=== PATIENT | male | born 1930 | race Caucasian/White ===

== ENCOUNTER 2016-10-16 01:59 | Inpatient (IN) | payer MEDICARE, BC, OTHER ==
[2016-10-16] MEDS ORDERED: Sodium Chloride 0.9% 10 ML Syringe FLUSH PRN (02:21)
[2016-10-16] MEDS ORDERED: HYDROmorphone 0.5 MG/0.5 ML Syringe IVPUSH ONE (02:22)
--- NOTE | 2016-10-16 02:33 | EDM.PDOC ---
ED HISTORY OF PRESENT ILLNESS - General Chief Complaint: Chest Pain Stated Complaint: CHEST PAIN BODY ACHES Time Seen by Provider: 10/16/16 02:16 Source of Information: Reports: Patient, Family History Limitations: Reports: No limitations - History of Present Illness INITIAL COMMENTS - FREE TEXT/NARRATIVE: The patient presents with generalized pain. He has chest pain also and back pain. The back pain is hurting him the worse. This all started this morning and it has progressed. He has no fever, chills, cough, congestion or runny nose. He has no shortness of breath. He has no nausea, vomiting or abdominal pain. He has some swelling in his legs. Timing/Duration: Reports: Day(s): (Yesterday) Severity: moderate Location, General: Reports: chest, back, generalized Quality: Reports: Ache Improves with: Reports: None Worsens with: Reports: None Associated Symptoms (General): Reports: chest pain. Denies: cough, fever/chills , nausea/vomiting, shortness of breath - Related Data Allergies/ADRs: Allergies Allergy/AdvReac Type Severity Reaction Status Date / Time cephalexin [Cephalexin] Allergy Unknown Unknown Verified 10/16/16 02:11 Home Meds: Home Meds Aspirin [Anshul Chewable Aspirin] 81 mg PO DAILY 01/27/14 [History] Carvedilol [Coreg] 6.25 mg PO BID 01/27/14 [History] Isosorbide Mononitrate [Imdur] 30 mg PO ACBREAKFAST 01/27/14 [History] Acetaminophen [Pain & Fever] 1 - 2 tab PO Q4H PRN 08/11/14 [History] Bumetanide 2 mg PO DAILY 04/16/15 [History] Hydrocodone/Acetaminophen [Hydrocodon-Acetaminophn 10-325] 10 - 325 mg PO Q6H PRN 04/16/15 [History] Polyethylene Glycol 3350 [MiraLAX] 17 gm PO ASDIRECTED PRN 07/06/15 [History] Nitroglycerin [Nitrostat] 0.4 mg SL Q5M PRN #25 tab.sl 07/09/16 [Rx] Past Medical History HEENT History: Reports: Cataract, Hard of hearing, Impaired vision Other HEENT History: Wears glasses Cardiovascular History: Reports: CAD, Heart Failure, High cholesterol, Hypertension, [place], Pacemaker, SOB on exertion Respiratory History: Reports: SOB Gastrointestinal History: Reports: GI bleed Genitourinary History: Reports: Retention, urinary Musculoskeletal History: Reports: Back pain, chronic Neurological History: Reports: Headaches, chronic Psychiatric History: Reports: None Endocrine/Metabolic History: Reports: None Hematologic History: Reports: Anemia, Blood transfusion(s) Immunologic History: Reports: None Oncologic (Cancer) History: Reports: None Dermatologic History: Reports: None - Infectious Disease History Infectious Disease History: Reports: Chicken pox, Measles, Mumps, Shingles - Past Surgical History HEENT Surgical History: Reports: Cataract surgery Cardiovascular Surgical History: Reports: Pacer Social & Family History - Family History Family Medical History: Noncontributory - Tobacco Use Smoking Status *Q: Former Smoker Years of Tobacco use: 30 Packs/Tins Daily: 1 Used Tobacco, but Quit: Yes Month Tobacco Last Used: 45 yrs Second Hand Smoke Exposure: No - Caffeine Use Caffeine Use: Reports: Coffee - Alcohol Use Days Per Week of Alcohol Use: 0 Number of Drinks Per Day: 1 Total Drinks Per Week: 0 - Recreational Drug Use Recreational Drug Use: No - Living Situation & Occupation Living situation: Reports: Occupation: retired ED ROS GENERAL - Review of Systems Review Of Systems: See Below Constitutional: Reports: no symptoms HEENT: Reports: No symptoms Respiratory: Reports: No Symptoms Cardiovascular: Reports: Chest pain Endocrine: Reports: no symptoms GI/Abdominal: Reports: No symptoms : Reports: no symptoms Musculoskeletal: Reports: back pain, muscle stiffness ED EXAM, GENERAL - Physical Exam Exam: See Below Exam Limited By: Other General Appearance: no apparent distress Ears: normal external exam Nose: normal inspection Head: atraumatic, normocephalic Neck: normal inspection Respiratory/Chest: no respiratory distress, lungs clear, normal breath sounds Cardiovascular: regular rate, rhythm, no murmur, other (Edema in his legs) GI/Abdominal: soft, non tender, no organomegaly Back Exam: normal inspection Extremities: pedal edema Neurological: alert, oriented, no motor/sensory deficits EKG INTERPRETATION EKG Date: 10/16/16 Time: 02:07 Rhythm: other (ventricular paced rhythm) Course - Vital Signs Last Recorded V/S: Last Vital Signs Temp 96.6 F 10/16/16 02:04 Pulse 87 10/16/16 02:04 Resp 16 10/16/16 02:04 BP 131/94 H 10/16/16 02:04 Pulse Ox 89 L 10/16/16 02:04 - Orders/Labs/Meds Orders: Active Orders 24 hr Category Date Time Status Patient Status [ADT] Routine ADT 10/16/16 05:58 Ordered Cardiac Monitoring [RC] . DIRECTED Care 10/16/16 02:22 Active EKG Documentation Completion [RC] STAT Care 10/16/16 02:22 Active Oxygen Therapy [RC] PRN Care 10/16/16 02:22 Active Peripheral IV Care [RC] . DIRECTED Care 10/16/16 02:22 Active Urinary Catheter Assessment [RC] ASDIRECTED Care 10/16/16 02:42 Active Urinary Catheter Insertion [Insert Urinary Catheter] [ Care 10/16/16 02:45 Ordered OM.PC] Q24H Abdomen Pelvis w Cont [CT] Stat Exams 10/16/16 03:11 Taken Chest 1V Frontal [CR] Stat Exams 10/16/16 02:22 Taken Echo Comp wo Cont [US] Stat Exams 10/16/16 06:00 Ordered CULTURE BLOOD [BC] Stat Lab 10/16/16 05:32 Ordered CULTURE BLOOD [BC] Stat Lab 10/16/16 05:32 Ordered LACTIC ACID [CHEM] Stat Lab 10/16/16 05:57 Ordered Levofloxacin/Dextrose 5%-Water [Levaquin in D5W 750 MG/ Med 10/16/16 05:32 Active 150 ML] 750 mg Premix Bag 1 bag IV ONETIME Piperacillin/Tazobactam [Zosyn] 4.5 gm Med 10/16/16 05:58 Ordered Sodium Chloride 0.9% [Normal Saline] 100 ml IV ONETIME Sodium Chloride 0.9% [Normal Saline] 1,000 ml Med 10/16/16 03:15 Active IV ASDIRECTED Sodium Chloride 0.9% [Normal Saline] 100 ml Med 10/16/16 04:15 Active IV ASDIRECTED Sodium Chloride 0.9% [Saline Flush] Med 10/16/16 02:21 Active 10 ml FLUSH ASDIRECTED PRN Blood Culture x2 Reflex Set [OM.PC] Stat Oth 10/16/16 05:32 Ordered Peripheral IV Insertion Adult [OM.PC] Stat Oth 10/16/16 02:21 Ordered Medication Orders Sodium Chloride (Normal Saline) 1,000 mls @ 125 mls/hr IV ASDIRECTED JAIRO Last Admin: 10/16/16 03:19 Dose: 125 mls/hr Sodium Chloride (Normal Saline) 100 mls @ 60 mls/hr IV ASDIRECTED JAIRO Last Admin: 10/16/16 04:41 Dose: 60 mls/hr Levofloxacin/Dextrose 750 mg/ (Premix) 150 mls @ 100 mls/hr IV ONETIME ONE Stop: 10/16/16 07:01 Last Admin: 10/16/16 05:41 Dose: 100 mls/hr Piperacillin Sod/Tazobactam (Sod 4.5 gm/ Sodium Chloride) 100 mls @ 200 mls/hr IV ONETIME ONE Stop: 10/16/16 06:27 Sodium Chloride (Saline Flush) 10 ml FLUSH ASDIRECTED PRN PRN Reason: Keep Vein Open Last Admin: 10/16/16 02:29 Dose: 10 ml Labs: Laboratory Tests 10/16/16 10/16/16 10/16/16 Range/Units 02:15 02:15 02:15 WBC 18.93 H (4.23-9.07) K/mm3 RBC 6.01 (4.63-6.08) M/mm3 Hgb 11.6 L (13.7-17.5) gm/L Hct 39.6 L (40.1-51.0) % MCV 65.9 L (79.0-92.2) fl MCH 19.3 L (25.7-32.2) pg MCHC 29.3 L (32.2-35.5) g/dl RDW Std Deviation 46.9 H (35.1-43.9) fL Plt Count 267 (163-337) K/mm3 MPV 10.1 (9.4-12.3) fl Neut % (Auto) 82.7 H (34.0-67.9) % Lymph % (Auto) 7.0 L (21.8-53.1) % [place] % (Auto) 9.8 (5.3-12.2) % Eos % (Auto) 0.1 L (0.8-7.0) Baso % (Auto) 0.2 (0.1-1.2) % Neut # (Auto) 15.66 H (1.78-5.38) K/mm3 Lymph # (Auto) 1.32 (1.32-3.57) K/mm3 [place] # (Auto) 1.86 H (0.30-0.82) K/mm3 Eos # (Auto) 0.02 L (0.04-0.54) K/mm3 Baso # (Auto) 0.03 (0.01-0.08) K/mm3 Manual Slide Review Abnormal smear Sodium 140 (136-145) mEq/L Potassium 4.2 (3.5-5.1) mEq/L Chloride 101 (98-107) mEq/L Carbon Dioxide 27 (21-32) mEq/L Anion Gap 16.2 H (5-15) BUN 34 H (7-18) mg/dL Creatinine 1.5 H (0.7-1.3) mg/dL Est Cr Clr Drug Dosing 30.70 mL/min Estimated GFR (MDRD) 45 (>60) mL/min BUN/Creatinine Ratio 22.7 H (14-18) Glucose 131 H (83-115) mg/dL Calcium 9.4 (8.5-10.1) mg/dL Total Bilirubin 2.5 H (0.2-1.0) mg/dL AST 37 (15-37) U/L ALT 16 (16-63) U/L Alkaline Phosphatase 71 (46-116) U/L Troponin I 0.351 H* (0.00-0.056) ng/mL B-Natriuretic Peptide 1012 H (0-100) pg/mL Total Protein 7.9 (6.4-8.2) g/dl Albumin 3.9 (3.4-5.0) g/dl Globulin 4.0 gm/dL Albumin/Globulin Ratio 1.0 (1-2) Lipase 79 (73-393) U/L Urine Color (Yellow) Urine Appearance (Clear) Urine pH (5.0-8.0) Ur Specific [place] (1.005-1.030) Urine Protein (Negative) Urine Glucose (UA) (Negative) Urine Ketones (Negative) Urine Occult Blood (Negative) Urine Nitrite (Negative) Urine Bilirubin (Negative) Urine Urobilinogen (0.2-1.0) Ur Leukocyte Esterase (Negative) Urine RBC (0-5) /hpf Urine WBC (0-5) /hpf Ur Epithelial Cells (0-5) /hpf Urine Bacteria (FEW) /hpf Hyaline Casts (0-5) /lpf Fine Granular Casts (0-5) /lpf Urine Mucus (FEW) /hpf 10/16/16 Range/Units 02:45 WBC (4.23-9.07) K/mm3 RBC (4.63-6.08) M/mm3 Hgb (13.7-17.5) gm/L Hct (40.1-51.0) % MCV (79.0-92.2) fl MCH (25.7-32.2) pg MCHC (32.2-35.5) g/dl RDW Std Deviation (35.1-43.9) fL Plt Count (163-337) K/mm3 MPV (9.4-12.3) fl Neut % (Auto) (34.0-67.9) % Lymph % (Auto) (21.8-53.1) % [place] % (Auto) (5.3-12.2) % Eos % (Auto) (0.8-7.0) Baso % (Auto) (0.1-1.2) % Neut # (Auto) (1.78-5.38) K/mm3 Lymph # (Auto) (1.32-3.57) K/mm3 [place] # (Auto) (0.30-0.82) K/mm3 Eos # (Auto) (0.04-0.54) K/mm3 Baso # (Auto) (0.01-0.08) K/mm3 Manual Slide Review Sodium (136-145) mEq/L Potassium (3.5-5.1) mEq/L Chloride (98-107) mEq/L Carbon Dioxide (21-32) mEq/L Anion Gap (5-15) BUN (7-18) mg/dL Creatinine (0.7-1.3) mg/dL Est Cr Clr Drug Dosing mL/min Estimated GFR (MDRD) (>60) mL/min BUN/Creatinine Ratio (14-18) Glucose (83-115) mg/dL Calcium (8.5-10.1) mg/dL Total Bilirubin (0.2-1.0) mg/dL AST (15-37) U/L ALT (16-63) U/L Alkaline Phosphatase (46-116) U/L Troponin I (0.00-0.056) ng/mL B-Natriuretic Peptide (0-100) pg/mL Total Protein (6.4-8.2) g/dl Albumin (3.4-5.0) g/dl Globulin gm/dL Albumin/Globulin Ratio (1-2) Lipase (73-393) U/L Urine Color Yellow (Yellow) Urine Appearance Clear (Clear) Urine pH 6.0 (5.0-8.0) Ur Specific [place] 1.015 (1.005-1.030) Urine Protein Negative (Negative) Urine Glucose (UA) Negative (Negative) Urine Ketones Negative (Negative) Urine Occult Blood Negative (Negative) Urine Nitrite Negative (Negative) Urine Bilirubin Negative (Negative) Urine Urobilinogen 2.0 H (0.2-1.0) Ur Leukocyte Esterase Negative (Negative) Urine RBC 0-5 (0-5) /hpf Urine WBC 0-5 (0-5) /hpf Ur Epithelial Cells Not seen (0-5) /hpf Urine Bacteria Not seen (FEW) /hpf Hyaline Casts 0-5 (0-5) /lpf Fine Granular Casts 0-5 (0-5) /lpf Urine Mucus Few (FEW) /hpf Meds: Medications Generic Name Dose Route Start Last Admin Trade Name Huseyinq PRN Reason Stop Dose Admin Sodium Chloride 1,000 mls @ 125 mls/hr 10/16/16 03:15 10/16/16 03:19 Normal Saline IV 125 mls/hr ASDIRECTED JAIRO Administration Sodium Chloride 100 mls @ 60 mls/hr 10/16/16 04:15 10/16/16 04:41 Normal Saline IV 60 mls/hr ASDIRECTED JAIRO Administration Levofloxacin/Dextrose 750 mg/ 150 mls @ 100 mls/hr 10/16/16 05:32 10/16/16 05 :41 Premix IV 10/16/16 07:01 100 mls/hr ONETIME ONE Administration Piperacillin Sod/Tazobactam 100 mls @ 200 mls/hr 10/16/16 05:58 Sod 4.5 gm/ Sodium Chloride IV 10/16/16 06:27 ONETIME ONE Sodium Chloride 10 ml 10/16/16 02:21 10/16/16 02:29 Saline Flush FLUSH 10 ml ASDIRECTED PRN Administration Keep Vein Open Discontinued Medications Generic Name Dose Route Start Last Admin Trade Name Roni PRN Reason Stop Dose Admin Diatrizoate Meglum/Diatrizoate Sod 90 ml 10/16/16 04:15 10/16/16 04:38 Gastrografin 37% PO 10/16/16 04:16 90 ml ONETIME ONE Administration Hydromorphone HCl 0.5 mg 10/16/16 02:22 10/16/16 02:29 Dilaudid IVPUSH 10/16/16 02:23 0.5 mg ONETIME ONE Administration Iopamidol 100 ml 10/16/16 04:15 10/16/16 04:39 Isovue-370 (76%) IVPUSH 10/16/16 04:16 100 ml ONETIME ONE Administration Sodium Chloride 10 ml 10/16/16 04:15 10/16/16 04:41 Saline Flush FLUSH 10/16/16 04:16 10 ml ONETIME ONE Administration - Re-Assessments/Exams Free Text/Narrative Re-Assessment/Exam: 10/16/16 02:33 I ordered an IV saline lock, dilaudid 0.5mg IV, EKG, CXR, and labs. His EKG shows a ventricular paced rhythm. 10/16/16 06:03 His WBC was elevated at 18.93. His Hgb was a little low at 11.6. His platelets were normal at 267. His creatinine was elevated at 1.5. His glucose was elevated at 131. His total bili was elevated at 2.5. His troponin was elevated at 0.351. His troponin has been elevated before. His BNP was elevated at 1012. His UA was negative for UTI. 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 Loculated pleural effusion at left base, potential source of elevated WBC. Multiple significant ongoing chronic findings such as the ascities. I called Dr Ferrell and he said they usually do not take the spleen out for this. We try to find the source of the embolic problem. I called Dr Veliz and she agreed to the admission. She wanted zosyn and an echocardiogram. Departure - Departure Time of Disposition: 06:10 Disposition: Admitted As Inpatient 68 Condition: fair Clinical Impression: Splenic infarct, Loculated pleural effusion, Elevated troponin, Chest pain, Renal insufficiency Leukocytosis Qualifiers: Leukocytosis type: unspecified Qualified Code(s): D72.829 - Elevated white blood cell count, unspecified Back pain Qualifiers: Back pain location: low back pain Chronicity: acute Back pain laterality: right Sciatica presence: without sciatica Qualified Code(s): M54.5 - Low back pain CHF (congestive heart failure) Qualifiers: Congestive heart failure type: unspecified congestive heart failure type Congestive heart failure chronicity: chronic Qualified Code(s): I50.9 - Heart failure, unspecified Forms: ED Department Discharge - My Orders Last 24 Hours: My Active Orders 10/16/16 02:21 Sodium Chloride 0.9% [Saline Flush] 10 ml FLUSH ASDIRECTED PRN Peripheral IV Insertion Adult [OM.PC] Stat 10/16/16 02:22 Cardiac Monitoring [RC] . DIRECTED EKG Documentation Completion [RC] STAT Oxygen Therapy [RC] PRN Peripheral IV Care [RC] . DIRECTED Chest 1V Frontal [CR] Stat 10/16/16 02:42 Urinary Catheter Assessment [RC] ASDIRECTED 10/16/16 02:45 Urinary Catheter Insertion [Insert Urinary Catheter] [OM.PC] Q24H 10/16/16 03:11 Abdomen Pelvis w Cont [CT] Stat 10/16/16 03:15 Sodium Chloride 0.9% [Normal Saline] 1,000 ml IV ASDIRECTED 10/16/16 04:15 Sodium Chloride 0.9% [Normal Saline] 100 ml IV ASDIRECTED 10/16/16 05:32 CULTURE BLOOD [BC] Stat CULTURE BLOOD [BC] Stat Levofloxacin/Dextrose 5%-Water [Levaquin in D5W 750 MG/150 ML] 750 mg Premix Bag 1 bag IV ONETIME Blood Culture x2 Reflex Set [OM.PC] Stat 10/16/16 05:57 LACTIC ACID [CHEM] Stat 10/16/16 05:58 Patient Status [ADT] Routine Piperacillin/Tazobactam [Zosyn] 4.5 gm Sodium Chloride 0.9% [Normal Saline] 100 ml IV ONETIME 10/16/16 06:00 Echo Comp wo Cont [US] Stat - Assessment/Plan Last 24 Hours: My Active Orders 10/16/16 02:21 Sodium Chloride 0.9% [Saline Flush] 10 ml FLUSH ASDIRECTED PRN Peripheral IV Insertion Adult [OM.PC] Stat 10/16/16 02:22 Cardiac Monitoring [RC] . DIRECTED EKG Documentation Completion [RC] STAT Oxygen Therapy [RC] PRN Peripheral IV Care [RC] . DIRECTED Chest 1V Frontal [CR] Stat 10/16/16 02:42 Urinary Catheter Assessment [RC] ASDIRECTED 10/16/16 02:45 Urinary Catheter Insertion [Insert Urinary Catheter] [OM.PC] Q24H 10/16/16 03:11 Abdomen Pelvis w Cont [CT] Stat 10/16/16 03:15 Sodium Chloride 0.9% [Normal Saline] 1,000 ml IV ASDIRECTED 10/16/16 04:15 Sodium Chloride 0.9% [Normal Saline] 100 ml IV ASDIRECTED 10/16/16 05:32 CULTURE BLOOD [BC] Stat CULTURE BLOOD [BC] Stat Levofloxacin/Dextrose 5%-Water [Levaquin in D5W 750 MG/150 ML] 750 mg Premix Bag 1 bag IV ONETIME Blood Culture x2 Reflex Set [OM.PC] Stat 10/16/16 05:57 LACTIC ACID [CHEM] Stat 10/16/16 05:58 Patient Status [ADT] Routine Piperacillin/Tazobactam [Zosyn] 4.5 gm Sodium Chloride 0.9% [Normal Saline] 100 ml IV ONETIME 10/16/16 06:00 Echo Comp wo Cont [US] Stat
[2016-10-16] MEDS ORDERED: Sodium Chloride 0.9% 1,000 ML IV SCH (03:15)
[2016-10-16] MEDS ORDERED: Diatrizoate Meglumine/Diatrizoate Sodium 37% 120 ML Bottle PO ONE (04:15)
[2016-10-16] MEDS ORDERED: Iopamidol 755 Mg/ML 100 ML Bottle IVPUSH ONE (04:15)
[2016-10-16] MEDS ORDERED: Sodium Chloride 0.9% 10 ML Syringe FLUSH ONE (04:15)
[2016-10-16] MEDS ORDERED: Sodium Chloride 0.9% 100 ML IV SCH (04:15)
[2016-10-16] MEDS ORDERED: Levofloxacin/Dextrose 5%-Water 750 MG in Premix Bag 1 BAG IV ONE (05:32)
[2016-10-16] MEDS ORDERED: Piperacillin/Tazobactam 4.5 GM in Sodium Chloride 0.9% 100 ML IV ONE ×2 (05:58→11:00)
[2016-10-16] MEDS: Morphine 2 MG/ML Syringe IVPUSH PRN (07:45)
[2016-10-16] MEDS ORDERED: Morphine 2 MG/ML Syringe ONE (07:45)
[2016-10-16] MEDS ORDERED: Morphine 2 MG/ML Syringe IVPUSH SCH (07:45)
[2016-10-16] MEDS: Nitroglycerin 0.4 MG Tab.SL SL PRN (07:45)
[2016-10-16] MEDS ORDERED: Morphine 2 MG/ML Syringe IVPUSH PRN (08:00)
[2016-10-16] MEDS ORDERED: Nitroglycerin 0.4 MG Tab.SL SL PRN ×2 (08:00→12:26)
[2016-10-16] MEDS ORDERED: HYDROmorphone 1 MG/ML Syringe IVPUSH ONE (08:08)
[2016-10-16] MEDS ORDERED: HYDROmorphone 1 MG/ML Syringe ONE (08:10)
[2016-10-16] MEDS ORDERED: Sodium Chloride 0.9% 500 ML IV PRN (08:11)
[2016-10-16] MEDS ORDERED: Sodium Chloride 0.9% 1,000 ML IV PRN ×2 (08:45→13:00)
[2016-10-16] MEDS ORDERED: HYDROmorphone 1 MG/ML Syringe IVPUSH PRN (09:30)
--- NOTE | 2016-10-16 09:59 | US ---
Left lower extremity deep venous ultrasound: Duplex and color flow imaging was obtained of the left common femoral, proximal saphenous, superficial femoral, popliteal, posterior tibial and peroneal veins. Right common femoral vein also evaluated. Subcutaneous edema seen within the left lower extremity. Normal phasic flow, augmentation and compression seen. Normal augmentation noted within the right common femoral vein. Impression: 1. Subcutaneous edema within the left lower extremity. 2. No findings of deep venous thrombosis are seen within the left lower extremity or within the right common femoral vein. Diagnostic code #2
--- NOTE | 2016-10-16 09:59 | CR ---
Chest: Portable view of the chest was obtained. Comparison: Previous chest x-ray 07/09/16. Heart is enlarged. Increased density behind the left heart compatible with small pleural effusion. Lungs otherwise are clear. Sternotomy wires noted. Pacemaker is noted. Bony structures are grossly intact. Impression: 1. Slight density within the left base most likely representing minimal pleural effusion. 2. Cardiomegaly and other incidental findings. Diagnostic code #2
--- NOTE | 2016-10-16 09:59 | CT ---
CT abdomen and pelvis Technique: Multiple axial sections were obtained from above the dome of the diaphragm inferiorly through the pubic symphysis. Intravenous and oral contrast was utilized. Comparison: Previous CT abdomen and pelvis exam of 02/02/16. Findings: Small right sided pleural effusion is noted. Minimal loculated left sided pleural effusion is seen. Mild calcification noted within the pleura on the left side. Minimal calcification seen within the pleura on the right side. Ascites is identified within the abdomen and within the pelvis. Liver shows no focal parenchymal abnormality. Spleen shows segmental areas of low density possibly due to lack of enhancement from splenic infarct, splenic hemorrhage or splenic infection. This finding is an interval change from prior exam. Spleen is also enlarged at 16 cm in craniocaudal measurement. Multiple cysts are seen within both kidneys. Nonobstructing calculus noted within the lower left kidney. Small nonobstructing stone also noted within the right kidney. Adrenal glands show no nodule or mass. Pancreas shows atrophy. Aorta shows atherosclerotic change which continues into the iliac vessels. No aneurysm is seen. No bowel dilatation is identified. Appendix is not definitely appreciated. No pelvic mass or adenopathy is noted. Delayed images show contrast excretion from both kidneys. Contrast noted within the bladder. Bone window settings were reviewed which show previous surgery at L4-L5 with transpedicle screws. Scattered degenerative change and scoliosis are seen within the spine. Impression: 1. Small right sided pleural effusion with mild areas of loculated pleural effusion within the left base. This is an interval change from previous exam. 2. Moderate amount of ascites seen. This is an interval change from prior exam 3. Segmental areas of low density within the spleen. Differential includes splenic infarction, splenic hemorrhage and splenic infection. Spleen is also enlarged with length of 16 cm. Splenic findings are an interval change from prior exam with spleen also appearing enlarged from prior exam. 4. Other incidental findings. Diagnostic code #3 Agree with preliminary report issued by [facility] (preliminary [facility] report dictated on 10/16/16, 6:04 AM Central Time)
[2016-10-16] MEDS ORDERED: Polyethylene Glycol 3350 Powder 17 GM Packet PO PRN (12:26)
[2016-10-16] MEDS ORDERED: Furosemide 40 MG/4 ML VIAL IVPUSH ONE (13:14)
[2016-10-16] MEDS ORDERED: Levalbuterol HCl 1.25 MG/3 ML Neb NEB PRN (13:15)
[2016-10-16] MEDS ORDERED: Piperacillin/Tazobactam 4.5 GM in Sodium Chloride 0.9% 100 ML IV SCH (13:15)
[2016-10-16] MEDS: Enoxaparin 30 MG/0.3 ML Syringe SUBCUT SCH (13:37)
[2016-10-16] MEDS ORDERED: Levofloxacin/Dextrose 5%-Water 750 MG in Premix Bag 1 BAG IV SCH (14:00)
[2016-10-16] MEDS: HYDROmorphone 0.5 MG/0.5 ML Syringe IVPUSH PRN ×2 (14:11→19:58)
--- NOTE | 2016-10-16 14:13 | PCM.HP ---
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 Additionally had asymmetrical LE swelling, a venous doppler was performed which documented no DVT. A 2D echo has been completed, but the results are not currently available. The back pain is chronic, he has also complained of bladder fullness , a bladder scan was inconclusive; ascites has decreased the sensitivity of the scan. The patient has a possible LLL infiltrate, empiric IV antibiotic has been started; a aguilar catheter has been placed for strict I/Os. Will obtain previous 2 D echo, patient may benefit from AICD. Onset of Symptoms: Reports: unknown/unsure Duration of Symptoms: Reports: Week(s):, Getting worse Location: Reports: abdomen (LUQ), back Severity: moderate Improves with: Reports: Medication Associated Symptoms: Reports: chest pain (atypical), weakness ( ) Middle Back Pain Score (Numeric/FACES): 4 - Related Data Allergies/Adverse Reactions: Allergies Allergy/AdvReac Type Severity Reaction Status Date / Time cephalexin [Cephalexin] Allergy Unknown Unknown Verified 10/16/16 02:11 Home Medications: Home Meds Carvedilol [Coreg] 6.25 mg PO BID 01/27/14 [History] Isosorbide Mononitrate [Imdur] 30 mg PO ACBREAKFAST 01/27/14 [History] Bumetanide 2 mg PO Q12HR 04/16/15 [History] Hydrocodone/Acetaminophen [Hydrocodon-Acetaminophn 10-325] 10 - 325 mg PO Q6H PRN 04/16/15 [History] Polyethylene Glycol 3350 [MiraLAX] 17 gm PO ASDIRECTED PRN 07/06/15 [History] Nitroglycerin [Nitrostat] 0.4 mg SL Q5M PRN #25 tab.sl 07/09/16 [Rx] Rosuvastatin [Crestor] 5 mg PO ACBREAKFAST 10/17/16 [History] Past Medical History HEENT History: Reports: Cataract, Hard of hearing, Impaired vision Other HEENT History: Wears glasses Cardiovascular History: Reports: CAD, Heart Failure, High cholesterol, Hypertension, [place], Pacemaker, SOB on exertion Respiratory History: Reports: SOB Gastrointestinal History: Reports: GI bleed Genitourinary History: Reports: Retention, urinary Musculoskeletal History: Reports: Back pain, chronic Neurological History: Reports: Headaches, chronic Psychiatric History: Reports: None Endocrine/Metabolic History: Reports: None Hematologic History: Reports: Anemia, Blood transfusion(s) Immunologic History: Reports: None Oncologic (Cancer) History: Reports: None Dermatologic History: Reports: None - Infectious Disease History Infectious Disease History: Reports: Chicken pox, Measles, Mumps, Shingles - Past Surgical History HEENT Surgical History: Reports: Cataract surgery Cardiovascular Surgical History: Reports: Pacer Social & Family History - Family History Family Medical History: Noncontributory - Tobacco Use Smoking Status *Q: Never Smoker Years of Tobacco use: 30 Packs/Tins Daily: 1 Used Tobacco, but Quit: Yes Month Tobacco Last Used: 45 yrs Second Hand Smoke Exposure: No - Caffeine Use Caffeine Use: Reports: None - Alcohol Use Days Per Week of Alcohol Use: 0 Number of Drinks Per Day: 1 Total Drinks Per Week: 0 - Recreational Drug Use Recreational Drug Use: No - Living Situation & Occupation Living situation: Reports: Occupation: retired H&P Review of Systems - Review of Systems: Review Of Systems: See Below General: Reports: weakness, fatigue HEENT: Reports: no symptoms Pulmonary: Reports: Shortness of Breath Cardiovascular: Reports: no symptoms Gastrointestinal: Reports: Abdominal pain Genitourinary: Reports: no symptoms Musculoskeletal: Reports: back pain Skin: Reports: no symptoms Psychiatric: Reports: no symptoms Neurological: Reports: No Symptoms Hematologic/Lymphatic: Reports: no symptoms Immunologic: Reports: no symptoms Exam - Exam Exam: See Below - Vital Signs Vital Signs: Last Vital Signs Temp 36.8 C 10/16/16 13:16 Pulse 81 10/16/16 13:16 Resp 26 H 10/16/16 13:16 BP 102/65 10/16/16 13:16 Pulse Ox 96 10/16/16 13:16 Weight: 82.871 kg - Exam Quality Assessment: supplemental oxygen, urinary catheter, DVT prophylaxis General: alert, oriented, cooperative HEENT: Conjunctiva clear, EACs clear, Mucosa moist & pink, Nares patent, Pupils equal, Pupils reactive Neck: trachea midline Lungs: Decreased breath sounds, Crackles, Wheezing Cardiovascular: regular rate Abdomen: normal bowel sounds, soft, organomegaly (spleen), splenomegaly ([address]) (Male) Exam: Deferred Rectal (Males) Exam: Deferred Back Exam: normal inspection, other (minimal sacral edema) Extremities: normal inspection, edema Skin: warm Neurological: cranial nerves intact, normal speech Neuro Extensive - Mental Status: alert, normal mood/affect Neuro Extensive - Motor, Sensory, Reflexes: CN II-XII intact Psychiatric: alert, normal affect, normal mood - Patient Data Lab Results last 24 hrs: Laboratory Results - last 24 hr 10/16/16 10/16/16 10/16/16 Range/Units 06:20 07:48 07:48 WBC 17.19 H (4.23-9.07) K/mm3 RBC 5.13 (4.63-6.08) M/mm3 Hgb 10.1 L (13.7-17.5) gm/L Hct 33.8 L (40.1-51.0) % MCV 65.9 L (79.0-92.2) fl MCH 19.7 L (25.7-32.2) pg MCHC 29.9 L (32.2-35.5) g/dl RDW Std Deviation 45.0 H (35.1-43.9) fL Plt Count 204 (163-337) K/mm3 MPV 9.9 (9.4-12.3) fl Neut % (Auto) 82.9 H (34.0-67.9) % Lymph % (Auto) 5.6 L (21.8-53.1) % [place] % (Auto) 11.1 (5.3-12.2) % Eos % (Auto) 0 L (0.8-7.0) Baso % (Auto) 0.2 (0.1-1.2) % Neut # (Auto) 14.26 H (1.78-5.38) K/mm3 Lymph # (Auto) 0.97 L (1.32-3.57) K/mm3 [place] # (Auto) 1.90 H (0.30-0.82) K/mm3 Eos # (Auto) 0.00 L (0.04-0.54) K/mm3 Baso # (Auto) 0.03 (0.01-0.08) K/mm3 Manual Slide Review Abnormal smear Lactic Acid 1.3 (0.4-2.0) mmol/L CK-MB (CK-2) 0.5 (0-3.6) ng/ml Troponin I 0.414 H* (0.00-0.056) ng/mL Result Diagrams: 10/17/16 05:23 10/17/16 05:23 *Q Meaningful Use (ADM) - VTE *Q VTE Criteria *Q: - Stroke *Q Stroke Criteria *Q: - AMI *Q AMI Criteria *Q: - Problem List (1) Back pain SNOMED Code(s): 038281452 ICD Code: M54.9 - DORSALGIA, UNSPECIFIED Status: Acute Current Visit: Yes Qualifiers: Back pain location: low back pain Chronicity: acute Back pain laterality : right Sciatica presence: without sciatica Qualified Code(s): M54.5 - Low back pain (2) CHF (congestive heart failure) SNOMED Code(s): 49590095 ICD Code: I50.9 - HEART FAILURE, UNSPECIFIED Status: Acute Current Visit : Yes Qualifiers: Congestive heart failure type: unspecified congestive heart failure type Congestive heart failure chronicity: chronic Qualified Code(s): I50.9 - Heart failure, unspecified (3) Chest pain SNOMED Code(s): 35368954 ICD Code: R07.9 - CHEST PAIN, UNSPECIFIED Status: Acute Current Visit: Yes Onset Date: 01/27/14 (4) Elevated troponin SNOMED Code(s): 786221754, 139736473 ICD Code: R74.8 - ABNORMAL LEVELS OF OTHER SERUM ENZYMES Status: Acute Current Visit: Yes (5) Leukocytosis SNOMED Code(s): 789422204, 423718442 ICD Code: D72.829 - ELEVATED WHITE BLOOD CELL COUNT, UNSPECIFIED Status: Acute Current Visit: Yes Qualifiers: Leukocytosis type: unspecified Qualified Code(s): D72.829 - Elevated white blood cell count, unspecified (6) Loculated pleural effusion SNOMED Code(s): 655265849 ICD Code: J90 - PLEURAL EFFUSION, NOT ELSEWHERE CLASSIFIED Status: Acute Current Visit: Yes (7) Renal insufficiency SNOMED Code(s): 332385919 ICD Code: N28.9 - DISORDER OF KIDNEY AND URETER, UNSPECIFIED Status: Acute Current Visit: Yes (8) Splenic infarct SNOMED Code(s): 64864288 ICD Code: D73.5 - INFARCTION OF SPLEEN Status: Acute Current Visit: Yes Problem List Initiated/Reviewed/Updated: Yes Orders Last 24hrs: Active Orders 24 hr Category Date Time Status Transfer Patient (Change bed) [ADT] Routine ADT 10/16/16 08:16 Active Antiembolic Devices [RC] PER UNIT ROUTINE Care 10/16/16 13:16 Active EKG 12 Lead [EKG Documentation Completion] [RC] STAT Care 10/16/16 07:35 Active EKG 12 Lead [EKG Documentation Completion] [RC] URGENT Care 10/16/16 08:15 Active Aguilar Catheter Insertion [Insert Urinary Catheter] [OM. Care 10/16/16 14:15 Ordered PC] Q24H Notify Provider Consults [RC] ASDIRECTED Care 10/16/16 12:26 Active RT Aerosol Therapy [RC] ASDIRECTED Care 10/16/16 13:15 Active RT Incentive Spirometry [RC] ASDIRECTED Care 10/16/16 11:18 Active Urinary Catheter Assessment [RC] ASDIRECTED Care 10/16/16 14:03 Ordered Consult to Occupational Therapy [OT Evaluation and Cons 10/16/16 14:00 Active Treatment] [CONS] Routine Consult to Physical Therapy [PT Evaluation and Cons 10/16/16 12:41 Active Treatment] [CONS] Routine Consult to Physician [CONS] Routine Cons 10/16/16 12:26 Active Consult to Incident Response Manager [CONS] Routine Cons 10/16/16 14:00 Active Consult to Speech Language Pathology [FEED ADVISER Evaluation Cons 10/16/16 13:21 Active and Treatment] [CONS] Routine Clear Liquid Diet [DIET] Diet 10/16/16 Lunch Active CTA Chest W WO Contrast [Ang Chest] [CT] Routine Exams 10/18/16 10:00 Ordered CBC W/O DIFF,HEMOGRAM [HEME] MOTH@0700 Lab 10/19/16 07:00 Ordered CBC W/O DIFF,HEMOGRAM [HEME] MOTH@0700 Lab 10/22/16 07:00 Ordered CBC W/O DIFF,HEMOGRAM [HEME] MOTH@0700 Lab 10/26/16 07:00 Ordered CBC W/O DIFF,HEMOGRAM [HEME] MOTH@0700 Lab 10/29/16 07:00 Ordered CBC W/O DIFF,HEMOGRAM [HEME] MOTH@0700 Lab 11/02/16 07:00 Ordered CBC W/O DIFF,HEMOGRAM [HEME] MOTH@0700 Lab 11/05/16 07:00 Ordered CKMB [CHEM] Routine Lab 10/16/16 18:00 Ordered CRP [C-REACTIVE PROTEIN] [CHEM] Routine Lab 10/16/16 18:00 Ordered TROPONIN I [CHEM] Routine Lab 10/16/16 18:00 Ordered Bumetanide [Bumex] Med 10/17/16 09:00 Active 2 mg PO DAILY Carvedilol [Coreg] Med 10/16/16 21:00 Active 6.25 mg PO BID Enoxaparin [Lovenox] Med 10/16/16 13:30 Active 30 mg SUBCUT DAILY HYDROmorphone [Dilaudid] Med 10/16/16 12:31 Active 0.5 mg IVPUSH Q4H PRN Isosorbide Mononitrate [Imdur] Med 10/17/16 06:00 Active 30 mg PO ACBREAKFAST Levalbuterol HCl [Xopenex] Med 10/16/16 13:15 Active 1.25 mg NEB QID PRN Levofloxacin/Dextrose 5%-Water [Levaquin in D5W 750 MG/ Med 10/16/16 14:00 Active 150 ML] 750 mg Premix Bag 1 bag IV Q48H Morphine Med 10/16/16 08:00 Active 1 mg IVPUSH Q2H PRN Nitroglycerin [Nitrostat] Med 10/16/16 07:57 Active 0.4 mg SL Q5M PRN Piperacillin/Tazobactam [Zosyn] 4.5 gm Med 10/16/16 19:00 Active Sodium Chloride 0.9% [Normal Saline] 100 ml IV Q8H Polyethylene Glycol 3350 [MiraLAX] Med 10/16/16 12:26 Active 17 gm PO ASDIRECTED PRN Sodium Chloride 0.9% [Normal Saline] 500 ml Med 10/16/16 08:11 Active IV ASDIRECTED APRIL Hose [Antiembolic Hose] [OM.PC] Routine Oth 10/16/16 13:15 Ordered Code Status [Resuscitation Status] Routine Resus Stat 10/16/16 12:40 Ordered Medication Orders Bumetanide (Bumex) 2 mg PO DAILY [facility] Carvedilol (Coreg) 6.25 mg PO BID [facility] Enoxaparin Sodium (Lovenox) 30 mg SUBCUT DAILY [facility] Last Admin: 10/16/16 13:37 Dose: 30 mg Hydromorphone HCl (Dilaudid) 0.5 mg IVPUSH Q4H PRN PRN Reason: Pain Sodium Chloride (Normal Saline) 500 mls @ 999 mls/hr IV ASDIRECTED PRN PRN Reason: Hypotension Last Admin: 10/16/16 08:05 Dose: 999 mls/hr Piperacillin Sod/Tazobactam (Sod 4.5 gm/ Sodium Chloride) 100 mls @ 25 mls/hr IV Q8H [facility] Levofloxacin/Dextrose 750 mg/ (Premix) 150 mls @ 100 mls/hr IV Q48H [facility] Last Admin: 10/16/16 13:36 Dose: 100 mls/hr Isosorbide Mononitrate (Imdur) 30 mg PO ACBREAKFAST [facility] Levalbuterol HCl (Xopenex) 1.25 mg NEB QID PRN PRN Reason: Shortness of Breath Morphine Sulfate (Morphine) 1 mg IVPUSH Q2H PRN PRN Reason: Pain Last Admin: 10/16/16 07:45 Dose: 1 mg Nitroglycerin (Nitrostat) 0.4 mg SL Q5M PRN PRN Reason: Chest Pain Last Admin: 10/16/16 07:45 Dose: 0.4 mg Polyethylene Glycol (Miralax) 17 gm PO ASDIRECTED PRN PRN Reason: Constipation Sodium Chloride (Saline Flush) 10 ml FLUSH ASDIRECTED PRN PRN Reason: Keep Vein Open Last Admin: 10/16/16 02:29 Dose: 10 ml Assessment/Plan Comment:: Impression: Acute on chronic back pain Abdominal discomfort Abnormal CT of abd/pelvis with splenomegaly Left sided loculated pleural effusion PNA Acute of chronic CHF History of A fib, s/p PPM Chest pain, atypical Acute on chronic kidney disease Plan: Zosyn/Levoquin IV with renal dose DC IVF, diurese; continue Bumex IV BID Follow electrolytes Gen surgery consult re; splenic infarct Query IR for pleura effusion Aguilar cath for ICU monitoring Nebs with Xopenex QID Consult: SW/PT/OT CTA of chest 10/18/16 Full code address progress of treatment as needed.. Code status with input of patient's children has been changed to DNR/DNI
[2016-10-16] MEDS: Piperacillin/Tazobactam 4.5 GM in Sodium Chloride 0.9% 100 ML IV SCH (18:10)
[2016-10-16] MEDS: Carvedilol 6.25 MG Tab PO SCH (20:22)
[2016-10-16] MEDS: Tamsulosin 0.4 MG Cap.ER PO SCH (20:49)
[2016-10-16] MEDS ORDERED: Belladonna Alkaloids/Opium 16.2-30 MG Supp RECTAL PRN (21:17)
[2016-10-17] MEDS ORDERED: Bisacodyl 10 MG Supp RECTAL PRN (01:09)
[2016-10-17] MEDS: Piperacillin/Tazobactam 4.5 GM in Sodium Chloride 0.9% 100 ML IV SCH ×3 (03:44→18:01)
[2016-10-17] MEDS: HYDROmorphone 0.5 MG/0.5 ML Syringe IVPUSH PRN ×3 (03:56→17:59)
[2016-10-17] MEDS: Isosorbide Mononitrate 30 MG Tab.ER PO SCH (07:30)
[2016-10-17] MEDS: Bumetanide 1 MG Tab PO SCH (09:20)
[2016-10-17] MEDS: Carvedilol 6.25 MG Tab PO SCH ×2 (09:21→20:31)
[2016-10-17] MEDS: Tamsulosin 0.4 MG Cap.ER PO SCH (09:23)
[2016-10-17] MEDS: Enoxaparin 30 MG/0.3 ML Syringe SUBCUT SCH (09:23)
[2016-10-17] MEDS ORDERED: Sodium Chloride 0.9% 10 ML Syringe FLUSH PRN (09:39)
[2016-10-17] MEDS ORDERED: Ondansetron 4 MG/2 ML SDV IVPUSH PRN (10:39)
[2016-10-17] MEDS: fentaNYL 12 MCG/HR Transdermal Patch TRDERM SCH (10:51)
[2016-10-17] MEDS ORDERED: Bumetanide 1 MG/4 ML MDV IVPUSH ONE (16:11)
--- NOTE | 2016-10-17 16:45 | PCM.PN ---
- General Info Date of Service: 10/17/16 Functional Status: Reports: tolerating diet, urinating - Review of Systems General: Reports: Weakness, Fatigue, Malaise HEENT: Reports: no symptoms Pulmonary: Reports: shortness of breath Cardiovascular: Reports: No Symptoms Gastrointestinal: Reports: Abdominal pain, Decreased appetite Genitourinary: Reports: no symptoms Musculoskeletal: Reports: shoulder pain (right), back pain Skin: Reports: no symptoms Neurological: Reports: No Symptoms Psychiatric: Reports: no symptoms - Patient Data Vitals - most recent: Last Vital Signs Temp 36.4 C 10/17/16 16:00 Pulse 79 10/17/16 09:21 Resp 20 10/17/16 16:00 BP 103/55 L 10/17/16 16:00 Pulse Ox 95 10/17/16 16:00 Weight - most recent: 82.871 kg I&O - last 24 hours: Intake & Output 10/17/16 10/17/16 10/17/16 06:59 14:59 22:59 Intake Total 500 460 Output Total 405 375 75 Balance 95 85 -75 Lab Results last 24 hrs: Laboratory Results - last 24 hr 10/16/16 10/17/16 10/17/16 Range/Units 17:50 05:23 05:23 WBC 15.23 H (4.23-9.07) K/mm3 RBC 5.28 (4.63-6.08) M/mm3 Hgb 10.3 L (13.7-17.5) gm/L Hct 34.6 L (40.1-51.0) % MCV 65.5 L (79.0-92.2) fl MCH 19.5 L (25.7-32.2) pg MCHC 29.8 L (32.2-35.5) g/dl RDW Std Deviation 45.2 H (35.1-43.9) fL Plt Count 195 (163-337) K/mm3 MPV 9.7 (9.4-12.3) fl Neut % (Auto) 83.0 H (34.0-67.9) % Lymph % (Auto) 6.3 L (21.8-53.1) % [place] % (Auto) 10.2 (5.3-12.2) % Eos % (Auto) 0.1 L (0.8-7.0) Baso % (Auto) 0.1 (0.1-1.2) % Neut # (Auto) 12.65 H (1.78-5.38) K/mm3 Lymph # (Auto) 0.96 L (1.32-3.57) K/mm3 [place] # (Auto) 1.55 H (0.30-0.82) K/mm3 Eos # (Auto) 0.02 L (0.04-0.54) K/mm3 Baso # (Auto) 0.01 (0.01-0.08) K/mm3 Manual Slide Review Abnormal smear Sodium 136 (136-145) mEq/L Potassium 3.8 (3.5-5.1) mEq/L Chloride 101 (98-107) mEq/L Carbon Dioxide 25 (21-32) mEq/L Anion Gap 13.8 (5-15) BUN 33 H (7-18) mg/dL Creatinine 1.5 H (0.7-1.3) mg/dL Est Cr Clr Drug Dosing 31.89 mL/min Estimated GFR (MDRD) 45 (>60) mL/min BUN/Creatinine Ratio 22.0 H (14-18) Glucose 85 (83-115) mg/dL Calcium 8.9 (8.5-10.1) mg/dL CK-MB (CK-2) 0.8 (0-3.6) ng/ml Troponin I 0.408 H* (0.00-0.056) ng/mL C-Reactive Protein 13.1 H* 16.4 H* (<1.0) mg/dL Med Orders - Current: Current Medications Belladonna Alkaloids/Opium (B & O Supprettes No. 15a) 1 supp RECTAL Q6H PRN PRN Reason: bladder pain/spasm Bisacodyl (Dulcolax) 10 mg RECTAL DAILY PRN PRN Reason: Constipation Last Admin: 10/17/16 03:47 Dose: 10 mg Bumetanide (Bumex) 2 mg PO DAILY [facility] Last Admin: 10/17/16 09:20 Dose: 2 mg Carvedilol (Coreg) 6.25 mg PO BID [facility] Last Admin: 10/17/16 09:21 Dose: 6.25 mg Enoxaparin Sodium (Lovenox) 30 mg SUBCUT DAILY [facility] Last Admin: 10/17/16 09:23 Dose: 30 mg Fentanyl (Duragesic) 12 mcg TRDERM Q72H [facility] Last Admin: 10/17/16 10:51 Dose: 12 mcg Hydromorphone HCl (Dilaudid) 0.5 mg IVPUSH Q2H PRN PRN Reason: Pain Sodium Chloride (Normal Saline) 500 mls @ 999 mls/hr IV ASDIRECTED PRN PRN Reason: Hypotension Last Admin: 10/16/16 08:05 Dose: 999 mls/hr Piperacillin Sod/Tazobactam (Sod 4.5 gm/ Sodium Chloride) 100 mls @ 25 mls/hr IV Q8H [facility] Last Admin: 10/17/16 10:53 Dose: 25 mls/hr Levofloxacin/Dextrose 750 mg/ (Premix) 150 mls @ 100 mls/hr IV Q48H [facility] Isosorbide Mononitrate (Imdur) 30 mg PO ACBREAKFAST [facility] Last Admin: 10/17/16 07:30 Dose: 30 mg Levalbuterol HCl (Xopenex) 1.25 mg NEB QID PRN PRN Reason: Shortness of Breath Miscellaneous Information (Remove Patch) 1 ea TRDERM Q72H [facility] Morphine Sulfate (Morphine) 1 mg IVPUSH Q2H PRN PRN Reason: Pain Last Admin: 10/16/16 07:45 Dose: 1 mg Nitroglycerin (Nitrostat) 0.4 mg SL Q5M PRN PRN Reason: Chest Pain Last Admin: 10/16/16 07:45 Dose: 0.4 mg Ondansetron HCl (Zofran) 4 mg IVPUSH Q8H PRN PRN Reason: Nausea/Vomiting Polyethylene Glycol (Miralax) 17 gm PO ASDIRECTED PRN PRN Reason: Constipation Last Admin: 10/17/16 01:12 Dose: 17 gm Rosuvastatin Calcium (Crestor) 5 mg PO ACBREAKFAST [facility] Sodium Chloride (Saline Flush) 10 ml FLUSH ASDIRECTED PRN PRN Reason: Keep Vein Open Tamsulosin HCl (Flomax) 0.4 mg PO DAILY [facility] Last Admin: 10/17/16 09:23 Dose: 0.4 mg Discontinued Medications Bumetanide (Bumex) 1 mg IVPUSH ONETIME ONE Stop: 10/17/16 16:12 Diatrizoate Meglum/Diatrizoate Sod (Gastrografin 37%) 90 ml PO ONETIME ONE Stop: 10/16/16 04:16 Last Admin: 10/16/16 04:38 Dose: 90 ml Furosemide (Lasix) 20 mg IVPUSH NOW ONE Stop: 10/16/16 13:15 Last Admin: 10/16/16 13:37 Dose: 20 mg Hydromorphone HCl (Dilaudid) 0.5 mg IVPUSH ONETIME ONE Stop: 10/16/16 02:23 Last Admin: 10/16/16 02:29 Dose: 0.5 mg Hydromorphone HCl (Dilaudid) 1 mg IVPUSH ONETIME ONE Stop: 10/16/16 08:09 Last Admin: 10/16/16 08:14 Dose: 1 mg Hydromorphone HCl (Dilaudid) Confirm Administered Dose 1 mg .ROUTE .STK-MED ONE Stop: 10/16/16 08:11 Last Admin: 10/16/16 08:17 Dose: Not Given Hydromorphone HCl (Dilaudid) 1 mg IVPUSH Q3H PRN PRN Reason: Pain Hydromorphone HCl (Dilaudid) 0.5 mg IVPUSH Q4H PRN PRN Reason: Pain Last Admin: 10/17/16 10:38 Dose: 0.5 mg Sodium Chloride (Normal Saline) 1,000 mls @ 125 mls[facility] Last Admin: 10/16/16 03:19 Dose: 125 mls/hr Sodium Chloride (Normal Saline) 100 mls @ 60 mls/hr [facility] Last Admin: 10/16/16 04:41 Dose: 60 mls/hr Levofloxacin/Dextrose 750 mg/ (Premix) 150 mls @ 100 mls/hr IV ONETIME ONE Stop: 10/16/16 07:01 Last Admin: 10/16/16 05:41 Dose: 100 mls/hr Piperacillin Sod/Tazobactam (Sod 4.5 gm/ Sodium Chloride) 100 mls @ 200 mls/hr IV ONETIME ONE Stop: 10/16/16 06:27 Last Admin: 10/16/16 11:11 Dose: Not Given Sodium Chloride (Normal Saline) 1,000 mls @ 150 mls/hr IV ASDIRECTED PRN PRN Reason: Hypotension Piperacillin Sod/Tazobactam (Sod 4.5 gm/ Sodium Chloride) 100 mls @ 200 mls/hr IV ONETIME ONE Stop: 10/16/16 11:29 Last Admin: 10/16/16 11:05 Dose: 200 mls/hr Sodium Chloride (Normal Saline) 1,000 mls @ 70 mls/hr IV ASDIRECTED PRN PRN Reason: Hypotension Last Admin: 10/16/16 12:58 Dose: 70 mls/hr Levofloxacin/Dextrose 750 mg/ (Premix) 150 mls @ 100 mls/hr IV Q48H [facility] Last Admin: 10/16/16 13:36 Dose: 100 mls/hr Piperacillin Sod/Tazobactam (Sod 4.5 gm/ Sodium Chloride) 100 mls @ 25 mls/hr IV Q8H [facility] Last Admin: 10/16/16 13:42 Dose: Not Given Iopamidol (Isovue-370 (76%)) 100 ml IVPUSH ONETIME ONE Stop: 10/16/16 04:16 Last Admin: 10/16/16 04:39 Dose: 100 ml Morphine Sulfate (Morphine) Confirm Administered Dose 2 mg .ROUTE .STK-MED ONE Stop: 10/16/16 07:46 Last Admin: 10/16/16 08:18 Dose: Not Given Morphine Sulfate (Morphine) 1 mg IVPUSH Q2H PRN PRN Reason: Chest Pain Nitroglycerin (Nitrostat) 0.4 mg SL Q5M PRN PRN Reason: Chest Pain Nitroglycerin (Nitrostat) 0.4 mg SL Q5M PRN PRN Reason: Chest Pain Sodium Chloride (Saline Flush) 10 ml FLUSH ASDIRECTED PRN PRN Reason: Keep Vein Open Last Admin: 10/16/16 02:29 Dose: 10 ml Sodium Chloride (Saline Flush) 10 ml FLUSH ONETIME ONE Stop: 10/16/16 04:16 Last Admin: 10/16/16 04:41 Dose: 10 ml - Exam Quality Assessment: urine catheter (Placed for monitoring and urinary retention) , DVT prophylaxis General: alert, oriented, cooperative, mild distress HEENT: Pupils equal, Pupils reactive Neck: supple, trachea midline, no JVD Lungs: Decreased breath sounds Cardiovascular: Regular Rate, Irregular Rhythm, Other (paced) Abdomen: bowel sounds present, soft, rebound (no), guarding (no), tenderness, distension (Male) Exam: Deferred Back Exam: normal inspection Extremities: normal pulses, edema (L>R) Skin: warm Neurological: no new focal deficit, normal speech Psy/Mental Status: alert, anxious - Problem List & Annotations (1) Back pain SNOMED Code(s): 578078533 Code(s): M54.9 - DORSALGIA, UNSPECIFIED Status: Acute Current Visit: Yes Qualifiers: Back pain location: low back pain Chronicity: acute Back pain laterality : right Sciatica presence: without sciatica Qualified Code(s): M54.5 - Low back pain (2) CHF (congestive heart failure) SNOMED Code(s): 46853567 Code(s): I50.9 - HEART FAILURE, UNSPECIFIED Status: Acute Current Visit: Yes Qualifiers: Congestive heart failure type: unspecified congestive heart failure type Congestive heart failure chronicity: chronic Qualified Code(s): I50.9 - Heart failure, unspecified (3) Chest pain SNOMED Code(s): 61755927 Code(s): R07.9 - CHEST PAIN, UNSPECIFIED Status: Acute Current Visit: Yes Onset Date: 01/27/14 (4) Elevated troponin SNOMED Code(s): 066677560, 925142077 Code(s): R74.8 - ABNORMAL LEVELS OF OTHER SERUM ENZYMES Status: Acute Current Visit: Yes (5) Leukocytosis SNOMED Code(s): 630953959, 291246809 Code(s): D72.829 - ELEVATED WHITE BLOOD CELL COUNT, UNSPECIFIED Status: Acute Current Visit: Yes Qualifiers: Leukocytosis type: unspecified Qualified Code(s): D72.829 - Elevated white blood cell count, unspecified (6) Loculated pleural effusion SNOMED Code(s): 498480792 Code(s): J90 - PLEURAL EFFUSION, NOT ELSEWHERE CLASSIFIED Status: Acute Current Visit: Yes (7) Renal insufficiency SNOMED Code(s): 184937649 Code(s): N28.9 - DISORDER OF KIDNEY AND URETER, UNSPECIFIED Status: Acute Current Visit: Yes (8) Splenic infarct SNOMED Code(s): 98757996 Code(s): D73.5 - INFARCTION OF SPLEEN Status: Acute Current Visit: Yes - Problem List Review Problem List Initiated/Reviewed/Updated: Yes - My Orders Last 24 Hours: My Active Orders 10/16/16 18:42 Bedrest Bathroom Privileges [RC] ASDIRECTED Vital Signs [RC] Q4HR 10/16/16 19:00 Piperacillin/Tazobactam [Zosyn] 4.5 gm Sodium Chloride 0.9% [Normal Saline] 100 ml IV Q8H 10/16/16 20:45 Tamsulosin [Flomax] 0.4 mg PO DAILY 10/16/16 21:00 Carvedilol [Coreg] 6.25 mg PO BID 10/16/16 21:17 Belladonna/Opium [B & O Supprettes No. 15A] 1 supp RECTAL Q6H PRN 10/16/16 Dinner Heart Healthy Diet [DIET] 10/17/16 01:09 Bisacodyl [Dulcolax] 10 mg RECTAL DAILY PRN 10/17/16 06:00 Isosorbide Mononitrate [Imdur] 30 mg PO ACBREAKFAST 10/17/16 09:00 Bumetanide [Bumex] 2 mg PO DAILY 10/17/16 09:39 Sodium Chloride 0.9% [Saline Flush] 10 ml FLUSH ASDIRECTED PRN 10/17/16 10:39 Ondansetron [Zofran] 4 mg IVPUSH Q8H PRN 10/17/16 11:00 fentaNYL [Duragesic] 12 mcg TRDERM Q72H 10/17/16 15:52 INFLUENZA A+B AG SCREEN [RM] Routine STREP PNEUMONIAE ANTIGEN [MREF] Routine 10/17/16 16:12 HYDROmorphone [Dilaudid] 0.5 mg IVPUSH Q2H PRN 10/18/16 05:00 BMP [BASIC METABOLIC PANEL,BMP] [CHEM] DAILY CBC WITH AUTO DIFF [HEME] DAILY CRP [C-REACTIVE PROTEIN] [CHEM] DAILY MAGNESIUM [CHEM] DAILY MYCOPLASMA PNEUMONIAE IGM AB [CHEM] Routine 10/18/16 06:00 Levofloxacin/Dextrose 5%-Water [Levaquin in D5W 750 MG/150 ML] 750 mg Premix Bag 1 bag IV Q48H Rosuvastatin [Crestor] 5 mg PO ACBREAKFAST 10/18/16 10:00 CTA Chest W WO Contrast [Ang Chest] [CT] Routine 10/19/16 05:00 BMP [BASIC METABOLIC PANEL,BMP] [CHEM] DAILY CBC WITH AUTO DIFF [HEME] DAILY CRP [C-REACTIVE PROTEIN] [CHEM] DAILY MAGNESIUM [CHEM] DAILY 10/20/16 05:00 MAGNESIUM [CHEM] DAILY 10/20/16 11:00 Remove Patch 1 ea TRDERM Q72H - Assessment Assessment:: LOS expected >96 hours - Plan Plan:: Impression: Acute on chronic back pain Abdominal discomfort Abnormal CT of abd/pelvis with splenomegaly Left sided loculated pleural effusion PNA Acute of chronic CHF History of A fib, s/p PPM Chest pain, atypical Acute on chronic kidney disease Plan: Zosyn/Levoquin IV with renal dose DC IVF, diurese; continue Bumex IV BID Follow electrolytes Gen surgery consult re; splenic infarct Query IR for pleura effusion Coello cath for ICU monitoring Nebs with Xopenex QID Consult: SW/PT/OT CTA of chest 10/18/16 Full code address progress of treatment as needed.. Code status with input of patient's children has been changed to DNR/DNI
[2016-10-17] MEDS: Acetaminophen/HYDROcodone 325-5 MG Tab PO PRN (20:31)
[2016-10-18] MEDS: Piperacillin/Tazobactam 4.5 GM in Sodium Chloride 0.9% 100 ML IV SCH ×3 (03:45→19:34)
[2016-10-18] MEDS: Acetaminophen/HYDROcodone 325-5 MG Tab PO PRN ×2 (04:26→19:49)
[2016-10-18] MEDS: HYDROmorphone 0.5 MG/0.5 ML Syringe IVPUSH PRN ×4 (05:22→19:47)
[2016-10-18] MEDS: Isosorbide Mononitrate 30 MG Tab.ER PO SCH ×2 (05:27→07:28)
[2016-10-18] MEDS: Rosuvastatin 10 MG Tab PO SCH (05:27)
[2016-10-18] MEDS: Nitroglycerin 0.4 MG Tab.SL SL PRN ×4 (05:43→18:27)
[2016-10-18] MEDS: Levofloxacin/Dextrose 5%-Water 750 MG in Premix Bag 1 BAG IV SCH (08:21)
[2016-10-18] MEDS: Enoxaparin 30 MG/0.3 ML Syringe SUBCUT SCH (08:34)
[2016-10-18] MEDS: Tamsulosin 0.4 MG Cap.ER PO SCH (08:35)
[2016-10-18] MEDS: Carvedilol 6.25 MG Tab PO SCH ×2 (08:36→20:47)
[2016-10-18] MEDS ORDERED: Iopamidol 755 MG/ML 50 ML Bottle IVPUSH ONE (09:57)
[2016-10-18] MEDS ORDERED: Iopamidol 755 Mg/ML 100 ML Bottle IVPUSH ONE (09:57)
[2016-10-18] MEDS ORDERED: Sodium Chloride 0.9% 10 ML Syringe FLUSH PRN (09:57)
[2016-10-18] MEDS ORDERED: Sodium Chloride 0.9% 100 ML IV SCH (10:00)
--- NOTE | 2016-10-18 11:12 | PCM.PN ---
- General Info Date of Service: 10/18/16 Functional Status: Reports: tolerating diet, ambulating, urinating - Review of Systems General: Reports: Weakness, Fatigue HEENT: Reports: no symptoms Pulmonary: Reports: shortness of breath Cardiovascular: Reports: No Symptoms Gastrointestinal: Reports: No symptoms Genitourinary: Reports: no symptoms Musculoskeletal: Reports: no symptoms Skin: Reports: no symptoms Neurological: Reports: No Symptoms Psychiatric: Reports: no symptoms - Patient Data Vitals - most recent: Last Vital Signs Temp 36.6 C 10/18/16 08:00 Pulse 74 10/17/16 20:31 Resp 20 10/18/16 08:00 BP 109/79 10/18/16 08:36 Pulse Ox 94 L 10/18/16 08:00 Weight - most recent: 82.191 kg I&O - last 24 hours: Intake & Output 10/17/16 10/18/16 10/18/16 22:59 06:59 14:59 Intake Total 1220 300 Output Total 625 370 175 Balance 595 -70 -175 Lab Results last 24 hrs: Laboratory Results - last 24 hr 10/18/16 10/18/16 10/18/16 Range/Units 04:25 04:25 04:25 WBC 9.79 H (4.23-9.07) K/mm3 RBC 4.81 (4.63-6.08) M/mm3 Hgb 9.5 L (13.7-17.5) gm/L Hct 31.0 L (40.1-51.0) % MCV 64.4 L (79.0-92.2) fl MCH 19.8 L (25.7-32.2) pg MCHC 30.6 L (32.2-35.5) g/dl RDW Std Deviation 44.2 H (35.1-43.9) fL Plt Count 183 (163-337) K/mm3 MPV 10.0 (9.4-12.3) fl Neut % (Auto) 82.0 H (34.0-67.9) % Lymph % (Auto) 8.5 L (21.8-53.1) % Marion % (Auto) 8.6 (5.3-12.2) % Eos % (Auto) 0.6 L (0.8-7.0) Baso % (Auto) 0.2 (0.1-1.2) % Neut # (Auto) 8.03 H (1.78-5.38) K/mm3 Lymph # (Auto) 0.83 L (1.32-3.57) K/mm3 Marion # (Auto) 0.84 H (0.30-0.82) K/mm3 Eos # (Auto) 0.06 (0.04-0.54) K/mm3 Baso # (Auto) 0.02 (0.01-0.08) K/mm3 Manual Slide Review Abnormal smear Sodium 138 (136-145) mEq/L Potassium 3.5 (3.5-5.1) mEq/L Chloride 102 (98-107) mEq/L Carbon Dioxide 24 (21-32) mEq/L Anion Gap 15.5 H (5-15) BUN 33 H (7-18) mg/dL Creatinine 1.6 H (0.7-1.3) mg/dL Est Cr Clr Drug Dosing 29.90 mL/min Estimated GFR (MDRD) 41 (>60) mL/min BUN/Creatinine Ratio 20.6 H (14-18) Glucose 93 (83-115) mg/dL Lactic Acid 1.1 (0.4-2.0) mmol/L Calcium 8.5 (8.5-10.1) mg/dL Magnesium 2.3 (1.8-2.4) mg/dl Troponin I (0.00-0.056) ng/mL C-Reactive Protein 14.7 H* (<1.0) mg/dL Mycoplasma pneumon IgM Negative (NEGATIVE) 10/18/16 Range/Units 04:25 WBC (4.23-9.07) K/mm3 RBC (4.63-6.08) M/mm3 Hgb (13.7-17.5) gm/L Hct (40.1-51.0) % MCV (79.0-92.2) fl MCH (25.7-32.2) pg MCHC (32.2-35.5) g/dl RDW Std Deviation (35.1-43.9) fL Plt Count (163-337) K/mm3 MPV (9.4-12.3) fl Neut % (Auto) (34.0-67.9) % Lymph % (Auto) (21.8-53.1) % Marion % (Auto) (5.3-12.2) % Eos % (Auto) (0.8-7.0) Baso % (Auto) (0.1-1.2) % Neut # (Auto) (1.78-5.38) K/mm3 Lymph # (Auto) (1.32-3.57) K/mm3 Marion # (Auto) (0.30-0.82) K/mm3 Eos # (Auto) (0.04-0.54) K/mm3 Baso # (Auto) (0.01-0.08) K/mm3 Manual Slide Review Sodium (136-145) mEq/L Potassium (3.5-5.1) mEq/L Chloride (98-107) mEq/L Carbon Dioxide (21-32) mEq/L Anion Gap (5-15) BUN (7-18) mg/dL Creatinine (0.7-1.3) mg/dL Est Cr Clr Drug Dosing mL/min Estimated GFR (MDRD) (>60) mL/min BUN/Creatinine Ratio (14-18) Glucose (83-115) mg/dL Lactic Acid (0.4-2.0) mmol/L Calcium (8.5-10.1) mg/dL Magnesium (1.8-2.4) mg/dl Troponin I 0.292 H* (0.00-0.056) ng/mL C-Reactive Protein (<1.0) mg/dL Mycoplasma pneumon IgM (NEGATIVE) [place] Results last 24 hrs: Microbiology 10/17/16 17:10 Influenza Type A Antigen Screen - Final Nasopharyngeal Swab - Nare, Left NEGATIVE INFLUENZA A VIRUS AG Influenza Type B Antigen Screen - Final NEGATIVE INFLUENZA B VIRUS AG Med Orders - Current: Current Medications Hydrocodone Bitart/Acetaminophen ([place] 325-5 Mg) 1 tab PO Q6H PRN PRN Reason: Pain (moderate 4-6) Last Admin: 10/18/16 04:26 Dose: 1 tab Belladonna Alkaloids/Opium (B & O Supprettes No. 15a) 1 supp RECTAL Q6H PRN PRN Reason: bladder pain/spasm Bisacodyl (Dulcolax) 10 mg RECTAL DAILY PRN PRN Reason: Constipation Last Admin: 10/17/16 03:47 Dose: 10 mg Bumetanide (Bumex) 2 mg PO DAILY [facility] Last Admin: 10/17/16 09:20 Dose: 2 mg Carvedilol (Coreg) 6.25 mg PO BID [facility] Last Admin: 10/18/16 08:36 Dose: 6.25 mg Enoxaparin Sodium (Lovenox) 30 mg SUBCUT DAILY [facility] Last Admin: 10/18/16 08:34 Dose: 30 mg Fentanyl (Duragesic) 12 mcg TRDERM Q72H [facility] Last Admin: 10/17/16 10:51 Dose: 12 mcg Hydromorphone HCl (Dilaudid) 0.5 mg IVPUSH Q2H PRN PRN Reason: Pain Last Admin: 10/18/16 11:01 Dose: 0.5 mg Sodium Chloride (Normal Saline) 500 mls @ 999 mls/hr IV ASDIRECTED PRN PRN Reason: Hypotension Last Admin: 10/16/16 08:05 Dose: 999 mls/hr Piperacillin Sod/Tazobactam (Sod 4.5 gm/ Sodium Chloride) 100 mls @ 25 mls/hr IV Q8H [facility] Last Admin: 10/18/16 11:08 Dose: 25 mls/hr Levofloxacin/Dextrose 750 mg/ (Premix) 150 mls @ 100 mls/hr IV Q48H [facility] Last Admin: 10/18/16 08:21 Dose: 100 mls/hr Sodium Chloride (Normal Saline) 100 mls @ 65 mls/hr IV ASDIRECTED [facility] Last Admin: 10/18/16 10:53 Dose: 65 mls/hr Isosorbide Mononitrate (Imdur) 30 mg PO ACBREAKFAST [facility] Last Admin: 10/18/16 07:28 Dose: 30 mg Levalbuterol HCl (Xopenex) 1.25 mg NEB QID PRN PRN Reason: Shortness of Breath Miscellaneous Information (Remove Patch) 1 ea TRDERM Q72H [facility] Morphine Sulfate (Morphine) 1 mg IVPUSH Q2H PRN PRN Reason: Pain Last Admin: 10/16/16 07:45 Dose: 1 mg Nitroglycerin (Nitrostat) 0.4 mg SL Q5M PRN PRN Reason: Chest Pain Last Admin: 10/18/16 05:43 Dose: 0.4 mg Ondansetron HCl (Zofran) 4 mg IVPUSH Q8H PRN PRN Reason: Nausea/Vomiting Polyethylene Glycol (Miralax) 17 gm PO ASDIRECTED PRN PRN Reason: Constipation Last Admin: 10/17/16 01:12 Dose: 17 gm Rosuvastatin Calcium (Crestor) 5 mg PO ACBREAKFAST JAIRO Last Admin: 10/18/16 05:27 Dose: 5 mg Sodium Chloride (Saline Flush) 10 ml FLUSH ASDIRECTED PRN PRN Reason: Keep Vein Open Sodium Chloride (Saline Flush) 10 ml FLUSH ONETIME PRN PRN Reason: IV FLUSH Last Admin: 10/18/16 10:49 Dose: 10 ml Tamsulosin HCl (Flomax) 0.4 mg PO DAILY [facility] Last Admin: 10/18/16 08:35 Dose: 0.4 mg Discontinued Medications Bumetanide (Bumex) 1 mg IVPUSH ONETIME ONE Stop: 10/17/16 16:12 Last Admin: 10/17/16 17:41 Dose: 1 mg Diatrizoate Meglum/Diatrizoate Sod (Gastrografin 37%) 90 ml PO ONETIME ONE Stop: 10/16/16 04:16 Last Admin: 10/16/16 04:38 Dose: 90 ml Furosemide (Lasix) 20 mg IVPUSH NOW ONE Stop: 10/16/16 13:15 Last Admin: 10/16/16 13:37 Dose: 20 mg Hydromorphone HCl (Dilaudid) 0.5 mg IVPUSH ONETIME ONE Stop: 10/16/16 02:23 Last Admin: 10/16/16 02:29 Dose: 0.5 mg Hydromorphone HCl (Dilaudid) 1 mg IVPUSH ONETIME ONE Stop: 10/16/16 08:09 Last Admin: 10/16/16 08:14 Dose: 1 mg Hydromorphone HCl (Dilaudid) Confirm Administered Dose 1 mg .ROUTE .STK-MED ONE Stop: 10/16/16 08:11 Last Admin: 10/16/16 08:17 Dose: Not Given Hydromorphone HCl (Dilaudid) 1 mg IVPUSH Q3H PRN PRN Reason: Pain Hydromorphone HCl (Dilaudid) 0.5 mg IVPUSH Q4H PRN PRN Reason: Pain Last Admin: 10/17/16 10:38 Dose: 0.5 mg Sodium Chloride (Normal Saline) 1,000 mls @ 125 mls/hr IV ASDIRECTED [facility] Last Admin: 10/16/16 03:19 Dose: 125 mls/hr Sodium Chloride (Normal Saline) 100 mls @ 60 mls/hr IV ASDIRECTED [facility] Last Admin: 10/16/16 04:41 Dose: 60 mls/hr Levofloxacin/Dextrose 750 mg/ (Premix) 150 mls @ 100 mls/hr IV ONETIME ONE Stop: 10/16/16 07:01 Last Admin: 10/16/16 05:41 Dose: 100 mls/hr Piperacillin Sod/Tazobactam (Sod 4.5 gm/ Sodium Chloride) 100 mls @ 200 mls/hr IV ONETIME ONE Stop: 10/16/16 06:27 Last Admin: 10/16/16 11:11 Dose: Not Given Sodium Chloride (Normal Saline) 1,000 mls @ 150 mls/hr IV ASDIRECTED PRN PRN Reason: Hypotension Piperacillin Sod/Tazobactam (Sod 4.5 gm/ Sodium Chloride) 100 mls @ 200 mls/hr IV ONETIME ONE Stop: 10/16/16 11:29 Last Admin: 10/16/16 11:05 Dose: 200 mls/hr Sodium Chloride (Normal Saline) 1,000 mls @ 70 mls/hr IV ASDIRECTED PRN PRN Reason: Hypotension Last Admin: 10/16/16 12:58 Dose: 70 mls/hr Levofloxacin/Dextrose 750 mg/ (Premix) 150 mls @ 100 mls/hr IV Q48H [facility] Last Admin: 10/16/16 13:36 Dose: 100 mls/hr Piperacillin Sod/Tazobactam (Sod 4.5 gm/ Sodium Chloride) 100 mls @ 25 mls/hr IV Q8H [facility] Last Admin: 10/16/16 13:42 Dose: Not Given Iopamidol (Isovue-370 (76%)) 100 ml IVPUSH ONETIME ONE Stop: 10/16/16 04:16 Last Admin: 10/16/16 04:39 Dose: 100 ml Iopamidol (Isovue-370 (76%)) 100 ml IVPUSH ONETIME ONE Stop: 10/18/16 09:58 Last Admin: 10/18/16 10:49 Dose: 100 ml Iopamidol (Isovue-370 (76%)) 50 ml IVPUSH ONETIME ONE Stop: 10/18/16 09:58 Last Admin: 10/18/16 10:49 Dose: 50 ml Morphine Sulfate (Morphine) Confirm Administered Dose 2 mg .ROUTE .STK-MED ONE Stop: 10/16/16 07:46 Last Admin: 10/16/16 08:18 Dose: Not Given Morphine Sulfate (Morphine) 1 mg IVPUSH Q2H PRN PRN Reason: Chest Pain Nitroglycerin (Nitrostat) 0.4 mg SL Q5M PRN PRN Reason: Chest Pain Nitroglycerin (Nitrostat) 0.4 mg SL Q5M PRN PRN Reason: Chest Pain Sodium Chloride (Saline Flush) 10 ml FLUSH ASDIRECTED PRN PRN Reason: Keep Vein Open Last Admin: 10/16/16 02:29 Dose: 10 ml Sodium Chloride (Saline Flush) 10 ml FLUSH ONETIME ONE Stop: 10/16/16 04:16 Last Admin: 10/16/16 04:41 Dose: 10 ml - Exam Quality Assessment: supplemental oxygen, urine catheter, DVT prophylaxis General: alert, oriented, cooperative, no acute distress HEENT: Pupils equal, Pupils reactive, EOMI Neck: supple, trachea midline, no JVD Lungs: Normal respiratory effort, Decreased breath sounds, Wheezing Cardiovascular: Regular Rate, Irregular Rhythm Abdomen: bowel sounds present, soft, no tenderness, no distension (Male) Exam: Deferred Back Exam: normal inspection Extremities: normal pulses Skin: warm Neurological: no new focal deficit, normal speech Psy/Mental Status: alert, normal affect, normal mood - Problem List & Annotations (1) Back pain SNOMED Code(s): 049657539 Code(s): M54.9 - DORSALGIA, UNSPECIFIED Status: Acute Current Visit: Yes Qualifiers: Back pain location: low back pain Chronicity: acute Back pain laterality : right Sciatica presence: without sciatica Qualified Code(s): M54.5 - Low back pain (2) CHF (congestive heart failure) SNOMED Code(s): 80250733 Code(s): I50.9 - HEART FAILURE, UNSPECIFIED Status: Acute Current Visit: Yes Qualifiers: Congestive heart failure type: unspecified congestive heart failure type Congestive heart failure chronicity: chronic Qualified Code(s): I50.9 - Heart failure, unspecified (3) Chest pain SNOMED Code(s): 65696626 Code(s): R07.9 - CHEST PAIN, UNSPECIFIED Status: Acute Current Visit: Yes Onset Date: 01/27/14 (4) Elevated troponin SNOMED Code(s): 503199768, 209504039 Code(s): R74.8 - ABNORMAL LEVELS OF OTHER SERUM ENZYMES Status: Acute Current Visit: Yes (5) Leukocytosis SNOMED Code(s): 083515346, 901156216 Code(s): D72.829 - ELEVATED WHITE BLOOD CELL COUNT, UNSPECIFIED Status: Acute Current Visit: Yes Qualifiers: Leukocytosis type: unspecified Qualified Code(s): D72.829 - Elevated white blood cell count, unspecified (6) Loculated pleural effusion SNOMED Code(s): 396965303 Code(s): J90 - PLEURAL EFFUSION, NOT ELSEWHERE CLASSIFIED Status: Acute Current Visit: Yes (7) Renal insufficiency SNOMED Code(s): 823167069 Code(s): N28.9 - DISORDER OF KIDNEY AND URETER, UNSPECIFIED Status: Acute Current Visit: Yes (8) Splenic infarct SNOMED Code(s): 95804081 Code(s): D73.5 - INFARCTION OF SPLEEN Status: Acute Current Visit: Yes - Problem List Review Problem List Initiated/Reviewed/Updated: Yes - My Orders Last 24 Hours: My Active Orders 10/17/16 10:39 Ondansetron [Zofran] 4 mg IVPUSH Q8H PRN 10/17/16 11:00 fentaNYL [Duragesic] 12 mcg TRDERM Q72H 10/17/16 16:12 HYDROmorphone [Dilaudid] 0.5 mg IVPUSH Q2H PRN 10/17/16 19:50 Acetaminophen/HYDROcodone [[place] 325-5 MG] 1 tab PO Q6H PRN 10/18/16 05:36 EKG 12 Lead [EKG Documentation Completion] [RC] STAT 10/18/16 06:00 Levofloxacin/Dextrose 5%-Water [Levaquin in D5W 750 MG/150 ML] 750 mg Premix Bag 1 bag IV Q48H Rosuvastatin [Crestor] 5 mg PO ACBREAKFAST 10/18/16 09:56 Transfer Patient (Change bed) [ADT] Routine 10/18/16 09:57 Sodium Chloride 0.9% [Saline Flush] 10 ml FLUSH ONETIME PRN 10/18/16 10:00 CTA Chest W WO Contrast [Ang Chest] [CT] Routine Sodium Chloride 0.9% [Normal Saline] 100 ml IV ASDIRECTED 10/19/16 05:00 B-TYPE NATRIURETIC PEPTIDE,BNP [CHEM] Routine BMP [BASIC METABOLIC PANEL,BMP] [CHEM] DAILY CBC WITH AUTO DIFF [HEME] DAILY CRP [C-REACTIVE PROTEIN] [CHEM] DAILY MAGNESIUM [CHEM] DAILY 10/19/16 10:00 CXR [Chest 2V] [CR] Routine 10/20/16 05:00 MAGNESIUM [CHEM] DAILY 10/20/16 11:00 Remove Patch 1 ea TRDERM Q72H - Assessment Assessment:: Impression/Plan: Elevated Tn, multifactorial Query LLL PNA on Zosyn/Levoquin Pleural effusion Acute systolic CHF exacerbation; NYHA class III Ascites 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 Chronic back pain Urinary retention Continue ICU Continue IV ATB Diurese IV Bumex Await 2 D echo Narcotic for back pain Query IR for ascites. History of PPM, query candidate for AICD LOS expected >96 hours Needs PT/OT/SW Old EMR for previous 2 D echo - Plan Plan:: Impression: Acute on chronic back pain Abdominal discomfort Abnormal CT of abd/pelvis with splenomegaly Left sided loculated pleural effusion; query empyema PNA, bilateral Acute on chronic CHF ICM, LVEF 20-30% History of A fib, s/p PPM Chest pain, atypical Acute on chronic kidney disease Plan: Qualifies for AICD based on current guidelines CTA today, watch Bun/Cr Zosyn/Levoquin IV with renal dose DC IVF, diurese; continue Bumex IV Follow electrolytes Gen surgery consult re; splenic infarct---med mgt only Add Hytrin with Flomax for BPH Needs ACEI/ARB or hydralazine; aldactone, etc for CHF CHF teaching/education; fluid restriction Query IR for pleura effusion Coello cath for ICU monitoring, dc 10/19/16 Family meeting TBA, need SNF Nebs with Xopenex QID Consult: SW/PT/OT Needs SNF with rehab; will seek to arrange family meeting
[2016-10-18] MEDS ORDERED: Diphtheria,Pertussis(Acell),Tetanus Vaccine 0.5 ML SDV inactive IM ONE (11:57)
[2016-10-18] MEDS ORDERED: Pneumococcal Polyvalent-23 Vaccine 0.5 ML SDV IM ONE (11:59)
[2016-10-18] MEDS ORDERED: Bumetanide 1 MG/4 ML MDV IVPUSH ONE (14:54)
[2016-10-18] MEDS: Morphine 2 MG/ML Syringe IVPUSH PRN (18:19)
[2016-10-18] MEDS: Terazosin 1 MG Cap PO SCH (20:47)
[2016-10-19] MEDS: Piperacillin/Tazobactam 4.5 GM in Sodium Chloride 0.9% 100 ML IV SCH ×3 (03:02→18:10)
[2016-10-19] MEDS: Acetaminophen/HYDROcodone 325-5 MG Tab PO PRN ×2 (03:15→16:32)
[2016-10-19] MEDS: Morphine 2 MG/ML Syringe IVPUSH PRN (03:57)
[2016-10-19] MEDS: Isosorbide Mononitrate 30 MG Tab.ER PO SCH (07:48)
[2016-10-19] MEDS: Rosuvastatin 10 MG Tab PO SCH (07:48)
[2016-10-19] MEDS: HYDROmorphone 0.5 MG/0.5 ML Syringe IVPUSH PRN ×2 (07:49→16:25)
[2016-10-19] MEDS: Carvedilol 6.25 MG Tab PO SCH ×2 (08:04→22:18)
[2016-10-19] MEDS: Enoxaparin 30 MG/0.3 ML Syringe SUBCUT SCH (08:05)
[2016-10-19] MEDS: Tamsulosin 0.4 MG Cap.ER PO SCH (08:05)
[2016-10-19] MEDS: Nitroglycerin 0.4 MG Tab.SL SL PRN (08:17)
--- NOTE | 2016-10-19 08:34 | CT ---
CT chest Technique: Multiple axial sections were obtained through the chest from above the lung apices inferiorly through the lung bases. Intravenous contrast was utilized. Study has been performed as a pulmonary angiogram protocol. Comparison: Previous chest CT performed as a pulmonary angiogram protocol dated 04/02/09. Findings: Small right sided pleural effusion is seen. Pleural effusion on the left side is seen showing loculations. Pleural effusions have an uncomplicated Hounsfield unit measurements. Atelectasis noted within both lung bases worse on the right side. Mild interstitial change within the left base likely represents mild fibrosis. Lungs otherwise are clear. Pulmonary arteries show no filling defects to indicate pulmonary embolism. Coronary artery calcification is seen. Mediastinum shows no adenopathy or mass. Previous sternotomy noted. Scattered degenerative endplate spurring is seen within the spine. Ascites is noted within the upper abdomen. Impression: 1. No findings of pulmonary embolism. 2. Bilateral pleural effusions showing loculations on the left side. 3. Ascites identified within the upper abdomen. 4. Other incidental findings. Diagnostic code #3 I agree with preliminary report issued by [employer] (preliminary report dictated on 10/18/16, 12:19 PM Central Time)
--- NOTE | 2016-10-19 10:03 | CR ---
Chest: 2 views of the chest was obtained. Comparison: Previous chest CT of 10/18/16 and chest x-ray of 10/16/16. Increased density within the left upper chest is seen. This presumably is due to loculated pleural effusion correlating to chest CT. Mild increased density within the right lung base is seen most likely due to pleural effusion. Lungs otherwise are clear. Sternotomy is noted. Pacemaker is noted. Heart is enlarged. Scoliosis present within the spine. Impression: 1. Increased density within the left upper chest most likely due to loculated pleural effusion when correlating to recent chest CT. 2. Small right sided pleural effusion is seen. Other incidental findings as noted above. Diagnostic code #3
--- NOTE | 2016-10-19 10:22 | CONS ---
CONSULTING PHYSICIAN: Oliverio Anthony MD DATE OF CONSULTATION: 10/16/2016 HISTORY OF PRESENT ILLNESS: This is an 87-year-old, who was admitted to the emergency room with chest pain over mainly on the left. He was a known patient to the emergency room, had numerous admissions for chest pain and is known to have congestive heart failure associated with cardiomegaly. Because of the significance of his chest pain, the patient was admitted to the hospital and worked up. CT scan was done, which showed a large spleen, ascites, and some splenic infarcts. There was concern about the splenic infarcts. The heart failure is due to a combination of coronary artery disease, hypertension, and history of past MIs. He suffered some shortness of breath, weight loss, and currently has a pacemaker in place. He has had anemia and GI bleeds in the past, chronic back pain. The patient's medications are noted through medication reconciliation form. The patient was a former smoker, no street drugs. REVIEW OF SYSTEMS: He does have some shortness of breath, some chest pain that comes and goes. No rectal bleeding. No vomiting at this time. He has weight loss. No cough or hoarseness. FAMILY HISTORY: Noncontributory. PHYSICAL EXAMINATION: GENERAL: Reveals, the patient in some confusion and unable to really give a clear history of his pain and most of it is redacted from his old records. VITAL SIGNS: He has a temperature of 97, pulse is 64 to 80 and regular rate, and blood pressure of 95 to 102 over 65, respiratory rate is 20 to 26. HEENT: Eyes, sclerae white. Cranial nerves 3 through 12 are intact. Oral cavity healthy. NECK: Supple. LUNGS: Some rhonchi on the left base. CARDIAC: Heart tones irregularly regular rate. ABDOMEN: Tense with some ascites. Because of the tense abdomen unable to feel spleen. EXTREMITIES: Upper extremities and lower extremities, no angulation or deformities. PSYCHIATRIC: . SKIN: Warm. NEUROLOGIC: No sensorineural deficit. CT scan report reviewed. 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 RECOMMENDATION: With respect to the splenic infarct usually these are handled medically unless bleeding or abscess intervenes, but at this point, he is not a surgical candidate. MMODAL /[id number]
--- NOTE | 2016-10-19 10:25 | PCM.PN ---
<Haven Lema M - Last Filed: 10/19/16 10:16> - General Info Date of Service: 10/19/16 Admission Dx/Problem (Free Text): Admission Diagnosis/Problem Admission Diagnosis/Problem Leukocytosis LLL PNA Splenic infarct CHF Functional Status: Reports: tolerating diet, ambulating, urinating - Review of Systems General: Reports: Weakness, Fatigue. Denies: Fever HEENT: Reports: no symptoms Pulmonary: Reports: shortness of breath, pleuritic chest pain, cough (minimal) Cardiovascular: Reports: Chest Pain (intermittent lt sided, atypical- comes and goes with rest), Dyspnea on Exertion. Denies: Orthopnea, Edema, Lightheadedness Gastrointestinal: Reports: Abdominal pain (intermittent;epigastric) Genitourinary: Reports: no symptoms Musculoskeletal: Reports: back pain (chronic), leg pain (knee pain chronic) Neurological: Reports: No Symptoms Psychiatric: Reports: no symptoms, anxiety (intermittent) - Patient Data Vitals - most recent: Last Vital Signs Temp 98.1 F 10/19/16 07:58 Pulse 71 10/19/16 08:04 Resp 20 10/19/16 07:58 BP 122/87 10/19/16 08:17 Pulse Ox 99 10/19/16 07:58 Weight - most recent: 82.01 kg I&O - last 24 hours: Intake & Output 10/18/16 10/19/16 10/19/16 22:59 06:59 14:59 Intake Total 550 600 Output Total 200 275 250 Balance 350 325 -250 Lab Results last 24 hrs: Laboratory Results - last 24 hr 10/19/16 10/19/16 10/19/16 Range/Units 05:54 05:54 05:54 WBC 8.33 (4.23-9.07) K/mm3 RBC 5.03 (4.63-6.08) M/mm3 Hgb 10.1 L (13.7-17.5) gm/L Hct 32.5 L (40.1-51.0) % MCV 64.6 L (79.0-92.2) fl MCH 20.1 L (25.7-32.2) pg MCHC 31.1 L (32.2-35.5) g/dl RDW Std Deviation 44.0 H (35.1-43.9) fL Plt Count 209 (163-337) K/mm3 MPV 9.6 (9.4-12.3) fl Neut % (Auto) 78.9 H (34.0-67.9) % Lymph % (Auto) 9.1 L (21.8-53.1) % [place] % (Auto) 10.6 (5.3-12.2) % Eos % (Auto) 1.1 (0.8-7.0) Baso % (Auto) 0.2 (0.1-1.2) % Neut # (Auto) 6.57 H (1.78-5.38) K/mm3 Lymph # (Auto) 0.76 L (1.32-3.57) K/mm3 [place] # (Auto) 0.88 H (0.30-0.82) K/mm3 Eos # (Auto) 0.09 (0.04-0.54) K/mm3 Baso # (Auto) 0.02 (0.01-0.08) K/mm3 Manual Slide Review Abnormal smear Sodium 137 (136-145) mEq/L Potassium 3.3 L (3.5-5.1) mEq/L Chloride 101 (98-107) mEq/L Carbon Dioxide 26 (21-32) mEq/L Anion Gap 13.3 (5-15) BUN 33 H (7-18) mg/dL Creatinine 1.7 H (0.7-1.3) mg/dL Est Cr Clr Drug Dosing 28.14 mL/min Estimated GFR (MDRD) 39 (>60) mL/min BUN/Creatinine Ratio 19.4 H (14-18) Glucose 87 (83-115) mg/dL Calcium 8.6 (8.5-10.1) mg/dL Magnesium 2.3 (1.8-2.4) mg/dl C-Reactive Protein 12.0 H* (<1.0) mg/dL B-Natriuretic Peptide 689 H (0-100) pg/mL Med Orders - Current: Current Medications Hydrocodone Bitart/Acetaminophen ([place] 325-5 Mg) 1 tab PO Q6H PRN PRN Reason: Pain (moderate 4-6) Last Admin: 10/19/16 03:15 Dose: 1 tab Belladonna Alkaloids/Opium (B & O Supprettes No. 15a) 1 supp RECTAL Q6H PRN PRN Reason: bladder pain/spasm Bisacodyl (Dulcolax) 10 mg RECTAL DAILY PRN PRN Reason: Constipation Last Admin: 10/17/16 03:47 Dose: 10 mg Bumetanide (Bumex) 2 mg PO DAILY [facility] Last Admin: 10/17/16 09:20 Dose: 2 mg Carvedilol (Coreg) 3.125 mg PO BID [facility] Carvedilol (Coreg) 6.25 mg PO BID [facility] Enoxaparin Sodium (Lovenox) 30 mg SUBCUT DAILY [facility] Last Admin: 10/19/16 08:05 Dose: 30 mg Fentanyl (Duragesic) 12 mcg TRDERM Q72H [facility] Last Admin: 10/17/16 10:51 Dose: 12 mcg Hydromorphone HCl (Dilaudid) 0.5 mg IVPUSH Q2H PRN PRN Reason: Pain Last Admin: 10/19/16 07:49 Dose: 0.5 mg Sodium Chloride (Normal Saline) 500 mls @ 999 mls/hr IV ASDIRECTED PRN PRN Reason: Hypotension Last Admin: 10/16/16 08:05 Dose: 999 mls/hr Piperacillin Sod/Tazobactam (Sod 4.5 gm/ Sodium Chloride) 100 mls @ 25 mls/hr IV Q8H [facility] Last Admin: 10/19/16 03:02 Dose: 25 mls/hr Levofloxacin/Dextrose 750 mg/ (Premix) 150 mls @ 100 mls/hr IV Q48H [facility] Last Admin: 10/18/16 08:21 Dose: 100 mls/hr Sodium Chloride (Normal Saline) 100 mls @ 65 mls/hr IV ASDIRECTED [facility] Last Admin: 10/18/16 10:53 Dose: 65 mls/hr Isosorbide Mononitrate (Imdur) 60 mg PO ACBREAKFAST [facility] Last Admin: 10/19/16 07:48 Dose: 60 mg Levalbuterol HCl (Xopenex) 1.25 mg NEB QID PRN PRN Reason: Shortness of Breath Miscellaneous Information (Remove Patch) 1 ea TRDERM Q72H [facility] Morphine Sulfate (Morphine) 1 mg IVPUSH Q2H PRN PRN Reason: Pain Last Admin: 10/19/16 03:57 Dose: 1 mg Nitroglycerin (Nitrostat) 0.4 mg SL Q5M PRN PRN Reason: Chest Pain Last Admin: 10/19/16 08:17 Dose: 0.4 mg Ondansetron HCl (Zofran) 4 mg IVPUSH Q8H PRN PRN Reason: Nausea/Vomiting Polyethylene Glycol (Miralax) 17 gm PO ASDIRECTED PRN PRN Reason: Constipation Last Admin: 10/17/16 01:12 Dose: 17 gm Rosuvastatin Calcium (Crestor) 5 mg PO ACBREAKFAST [facility] Last Admin: 10/19/16 07:48 Dose: 5 mg Sodium Chloride (Saline Flush) 10 ml FLUSH ASDIRECTED PRN PRN Reason: Keep Vein Open Tamsulosin HCl (Flomax) 0.4 mg PO DAILY [facility] Last Admin: 10/19/16 08:05 Dose: 0.4 mg Terazosin HCl (Hytrin) 1 mg PO BEDTIME [facility] Last Admin: 10/18/16 20:47 Dose: 1 mg Discontinued Medications Bumetanide (Bumex) 1 mg IVPUSH ONETIME ONE Stop: 10/17/16 16:12 Last Admin: 10/17/16 17:41 Dose: 1 mg Bumetanide (Bumex) 1 mg IVPUSH ONETIME ONE Stop: 10/18/16 14:55 Last Admin: 10/18/16 15:52 Dose: Not Given Carvedilol (Coreg) 6.25 mg PO BID [facility] Last Admin: 10/19/16 08:04 Dose: 6.25 mg Diatrizoate Meglum/Diatrizoate Sod (Gastrografin 37%) 90 ml PO ONETIME ONE Stop: 10/16/16 04:16 Last Admin: 10/16/16 04:38 Dose: 90 ml Diphtheria/Tetanus/Acell Pertussis (Boostrix) 0.5 ml IM .ONCE ONE Stop: 10/18/16 11:58 Furosemide (Lasix) 20 mg IVPUSH NOW ONE Stop: 10/16/16 13:15 Last Admin: 10/16/16 13:37 Dose: 20 mg Hydromorphone HCl (Dilaudid) 0.5 mg IVPUSH ONETIME ONE Stop: 10/16/16 02:23 Last Admin: 10/16/16 02:29 Dose: 0.5 mg Hydromorphone HCl (Dilaudid) 1 mg IVPUSH ONETIME ONE Stop: 10/16/16 08:09 Last Admin: 10/16/16 08:14 Dose: 1 mg Hydromorphone HCl (Dilaudid) Confirm Administered Dose 1 mg .ROUTE .STK-MED ONE Stop: 10/16/16 08:11 Last Admin: 10/16/16 08:17 Dose: Not Given Hydromorphone HCl (Dilaudid) 1 mg IVPUSH Q3H PRN PRN Reason: Pain Hydromorphone HCl (Dilaudid) 0.5 mg IVPUSH Q4H PRN PRN Reason: Pain Last Admin: 10/17/16 10:38 Dose: 0.5 mg Sodium Chloride (Normal Saline) 1,000 mls @ 125 mls/hr IV ASDIRECTED [facility] Last Admin: 10/16/16 03:19 Dose: 125 mls/hr Sodium Chloride (Normal Saline) 100 mls @ 60 mls/hr IV ASDIRECTED [facility] Last Admin: 10/16/16 04:41 Dose: 60 mls/hr Levofloxacin/Dextrose 750 mg/ (Premix) 150 mls @ 100 mls/hr IV ONETIME ONE Stop: 10/16/16 07:01 Last Admin: 10/16/16 05:41 Dose: 100 mls/hr Piperacillin Sod/Tazobactam (Sod 4.5 gm/ Sodium Chloride) 100 mls @ 200 mls/hr IV ONETIME ONE Stop: 10/16/16 06:27 Last Admin: 10/16/16 11:11 Dose: Not Given Sodium Chloride (Normal Saline) 1,000 mls @ 150 mls/hr IV ASDIRECTED PRN PRN Reason: Hypotension Piperacillin Sod/Tazobactam (Sod 4.5 gm/ Sodium Chloride) 100 mls @ 200 mls/hr IV ONETIME ONE Stop: 10/16/16 11:29 Last Admin: 10/16/16 11:05 Dose: 200 mls/hr Sodium Chloride (Normal Saline) 1,000 mls @ 70 mls/hr IV ASDIRECTED PRN PRN Reason: Hypotension Last Admin: 10/16/16 12:58 Dose: 70 mls/hr Levofloxacin/Dextrose 750 mg/ (Premix) 150 mls @ 100 mls/hr IV Q48H [facility] Last Admin: 10/16/16 13:36 Dose: 100 mls/hr Piperacillin Sod/Tazobactam (Sod 4.5 gm/ Sodium Chloride) 100 mls @ 25 mls/hr IV Q8H [facility] Last Admin: 10/16/16 13:42 Dose: Not Given Iopamidol (Isovue-370 (76%)) 100 ml IVPUSH ONETIME ONE Stop: 10/16/16 04:16 Last Admin: 10/16/16 04:39 Dose: 100 ml Iopamidol (Isovue-370 (76%)) 100 ml IVPUSH ONETIME ONE Stop: 10/18/16 09:58 Last Admin: 10/18/16 10:49 Dose: 100 ml Iopamidol (Isovue-370 (76%)) 50 ml IVPUSH ONETIME ONE Stop: 10/18/16 09:58 Last Admin: 10/18/16 10:49 Dose: 50 ml Isosorbide Mononitrate (Imdur) 30 mg PO ACBREAKFAST [facility] Last Admin: 10/18/16 07:28 Dose: 30 mg Morphine Sulfate (Morphine) Confirm Administered Dose 2 mg .ROUTE .STK-MED ONE Stop: 10/16/16 07:46 Last Admin: 10/16/16 08:18 Dose: Not Given Morphine Sulfate (Morphine) 1 mg IVPUSH Q2H PRN PRN Reason: Chest Pain Nitroglycerin (Nitrostat) 0.4 mg SL Q5M PRN PRN Reason: Chest Pain Nitroglycerin (Nitrostat) 0.4 mg SL Q5M PRN PRN Reason: Chest Pain Pneumococcal Polyvalent Vaccine (Pneumovax 23) 0.5 ml IM .ONCE ONE Stop: 10/18/16 12:00 Sodium Chloride (Saline Flush) 10 ml FLUSH ASDIRECTED PRN PRN Reason: Keep Vein Open Last Admin: 10/16/16 02:29 Dose: 10 ml Sodium Chloride (Saline Flush) 10 ml FLUSH ONETIME ONE Stop: 10/16/16 04:16 Last Admin: 10/16/16 04:41 Dose: 10 ml Sodium Chloride (Saline Flush) 10 ml FLUSH ONETIME PRN PRN Reason: IV FLUSH Last Admin: 10/18/16 10:49 Dose: 10 ml - Exam Quality Assessment: DVT prophylaxis General: alert, oriented, cooperative, mild distress (chest and back pain intermittent) HEENT: Pupils equal, Pupils reactive, EOMI, Mucous membr. moist/pink Neck: supple Lungs: Normal respiratory effort, Decreased breath sounds (to bases) Cardiovascular: Regular Rate, Regular Rhythm, Murmurs Abdomen: bowel sounds present, soft, no tenderness, no distension (Male) Exam: Deferred Extremities: no edema, no calf tenderness Peripheral Pulses: 1+: dorsalis pedis (L), dorsalis pedis (R) Skin: warm, dry, intact Neurological: no new focal deficit Psy/Mental Status: alert, normal affect, normal mood - Problem List & Annotations (1) LLL pneumonia SNOMED Code(s): 136102120 Code(s): J18.1 - LOBAR PNEUMONIA, UNSPECIFIED ORGANISM Status: Acute Priority: High Current Visit: Yes Qualifiers: Pneumonia type: due to unspecified organism Qualified Code(s): J18.1 - Lobar pneumonia, unspecified organism (2) CHF (congestive heart failure) SNOMED Code(s): 58980237 Code(s): I50.9 - HEART FAILURE, UNSPECIFIED Status: Chronic Priority: High Current Visit: Yes Qualifiers: Congestive heart failure type: unspecified congestive heart failure type Congestive heart failure chronicity: acute on chronic Qualified Code(s): I50.9 - Heart failure, unspecified (3) Chest pain SNOMED Code(s): 95680668 Code(s): R07.9 - CHEST PAIN, UNSPECIFIED Status: Acute Priority: Medium Current Visit: Yes Onset Date: 01/27/14 (4) Elevated troponin SNOMED Code(s): 255287343, 733345335 Code(s): R74.8 - ABNORMAL LEVELS OF OTHER SERUM ENZYMES Status: Chronic Priority: Medium Current Visit: Yes (5) Leukocytosis SNOMED Code(s): 130038916, 893705199 Code(s): D72.829 - ELEVATED WHITE BLOOD CELL COUNT, UNSPECIFIED Status: Acute Priority: High Current Visit: Yes Qualifiers: Leukocytosis type: unspecified Qualified Code(s): D72.829 - Elevated white blood cell count, unspecified (6) Splenic infarct SNOMED Code(s): 18849793 Code(s): D73.5 - INFARCTION OF SPLEEN Status: Acute Priority: High Current Visit: Yes (7) Loculated pleural effusion SNOMED Code(s): 646498460 Code(s): J90 - PLEURAL EFFUSION, NOT ELSEWHERE CLASSIFIED Status: Acute Priority: High Current Visit: Yes (8) Renal insufficiency SNOMED Code(s): 248098735 Code(s): N28.9 - DISORDER OF KIDNEY AND URETER, UNSPECIFIED Status: Chronic Priority: Medium Current Visit: Yes (9) Back pain SNOMED Code(s): 979914489 Code(s): M54.9 - DORSALGIA, UNSPECIFIED Status: Chronic Current Visit: Yes Qualifiers: Back pain location: low back pain Chronicity: chronic Back pain laterality: right Sciatica presence: without sciatica Qualified Code(s): M54.5 - Low back pain; G89.29 - Other chronic pain - Problem List Review Problem List Initiated/Reviewed/Updated: Yes - My Orders Last 24 Hours: My Active Orders 10/19/16 10:15 Carvedilol [Coreg] 3.125 mg PO BID 10/19/16 21:00 Carvedilol [Coreg] 6.25 mg PO BID - Plan Plan:: Impression: Acute on chronic back pain Abdominal discomfort-- likely r/t acute splenic infarct Abnormal CT of abd/pelvis with splenomegaly- splenic infarct Left sided loculated pleural effusion PNA- LLL Acute of chronic CHF History of A fib, s/p PPM Chest pain, atypical Acute on chronic kidney disease Plan: Zosyn/Levoquin IV with renal dose DC IVF, diurese; continue Bumex IV BID Follow electrolytes Gen surgery consult re; splenic infarct Query IR for pleura effusion CHF -- medication augmentation; add indur, adjust/increase coreg as tolerated, nitro PRN Pain management for chronic pain- back, knee, chest, abdomen Coello cath for ICU monitoring Nebs with Xopenex QID Consult: SW/PT/OT CTA of chest 10/18/16 Full code address progress of treatment as needed.. Code status with input of patient's children has been changed to DNR/DNI LOS >96 hours due to complexity of case, Pneumonia, CHF, splenic infarct, pain control <Danyelle Veliz - Last Filed: 10/19/16 15:02> - Patient Data Vitals - most recent: Last Vital Signs Temp 37.2 C 10/19/16 11:51 Pulse 68 10/19/16 12:10 Resp 18 10/19/16 11:51 BP 102/64 10/19/16 12:10 Pulse Ox 100 10/19/16 11:51 I&O - last 24 hours: Intake & Output 10/18/16 10/19/16 10/19/16 22:59 06:59 14:59 Intake Total 550 600 240 Output Total 200 275 400 Balance 350 325 -160 Lab Results last 24 hrs: Laboratory Results - last 24 hr 10/19/16 10/19/16 10/19/16 Range/Units 05:54 05:54 05:54 WBC 8.33 (4.23-9.07) K/mm3 RBC 5.03 (4.63-6.08) M/mm3 Hgb 10.1 L (13.7-17.5) gm/L Hct 32.5 L (40.1-51.0) % MCV 64.6 L (79.0-92.2) fl MCH 20.1 L (25.7-32.2) pg MCHC 31.1 L (32.2-35.5) g/dl RDW Std Deviation 44.0 H (35.1-43.9) fL Plt Count 209 (163-337) K/mm3 MPV 9.6 (9.4-12.3) fl Neut % (Auto) 78.9 H (34.0-67.9) % Lymph % (Auto) 9.1 L (21.8-53.1) % [place] % (Auto) 10.6 (5.3-12.2) % Eos % (Auto) 1.1 (0.8-7.0) Baso % (Auto) 0.2 (0.1-1.2) % Neut # (Auto) 6.57 H (1.78-5.38) K/mm3 Lymph # (Auto) 0.76 L (1.32-3.57) K/mm3 [place] # (Auto) 0.88 H (0.30-0.82) K/mm3 Eos # (Auto) 0.09 (0.04-0.54) K/mm3 Baso # (Auto) 0.02 (0.01-0.08) K/mm3 Manual Slide Review Abnormal smear Sodium 137 (136-145) mEq/L Potassium 3.3 L (3.5-5.1) mEq/L Chloride 101 (98-107) mEq/L Carbon Dioxide 26 (21-32) mEq/L Anion Gap 13.3 (5-15) BUN 33 H (7-18) mg/dL Creatinine 1.7 H (0.7-1.3) mg/dL Est Cr Clr Drug Dosing 28.14 mL/min Estimated GFR (MDRD) 39 (>60) mL/min BUN/Creatinine Ratio 19.4 H (14-18) Glucose 87 (83-115) mg/dL Calcium 8.6 (8.5-10.1) mg/dL Magnesium 2.3 (1.8-2.4) mg/dl C-Reactive Protein 12.0 H* (<1.0) mg/dL B-Natriuretic Peptide 689 H (0-100) pg/mL Med Orders - Current: Current Medications Hydrocodone Bitart/Acetaminophen ([place] 325-5 Mg) 1 tab PO Q6H PRN PRN Reason: Pain (moderate 4-6) Last Admin: 10/19/16 03:15 Dose: 1 tab Aspirin (Aspirin) 81 mg PO BEDTIME [facility] Belladonna Alkaloids/Opium (B & O Supprettes No. 15a) 1 supp RECTAL Q6H PRN PRN Reason: bladder pain/spasm Bisacodyl (Dulcolax) 10 mg RECTAL DAILY PRN PRN Reason: Constipation Last Admin: 10/17/16 03:47 Dose: 10 mg Bumetanide (Bumex) 2 mg PO DAILY [facility] Last Admin: 10/17/16 09:20 Dose: 2 mg Carvedilol (Coreg) 3.125 mg PO BID [facility] Last Admin: 10/19/16 12:10 Dose: 3.125 mg Carvedilol (Coreg) 6.25 mg PO BID [facility] Enoxaparin Sodium (Lovenox) 30 mg SUBCUT DAILY [facility] Last Admin: 10/19/16 08:05 Dose: 30 mg Fentanyl (Duragesic) 12 mcg TRDERM Q72H [facility] Last Admin: 10/17/16 10:51 Dose: 12 mcg Hydromorphone HCl (Dilaudid) 0.5 mg IVPUSH Q2H PRN PRN Reason: Pain Last Admin: 10/19/16 07:49 Dose: 0.5 mg Sodium Chloride (Normal Saline) 500 mls @ 999 mls/hr IV ASDIRECTED PRN PRN Reason: Hypotension Last Admin: 10/16/16 08:05 Dose: 999 mls/hr Piperacillin Sod/Tazobactam (Sod 4.5 gm/ Sodium Chloride) 100 mls @ 25 mls/hr IV Q8H [facility] Last Admin: 10/19/16 11:27 Dose: 25 mls/hr Levofloxacin/Dextrose 750 mg/ (Premix) 150 mls @ 100 mls/hr IV Q48H [facility] Last Admin: 10/18/16 08:21 Dose: 100 mls/hr Sodium Chloride (Normal Saline) 100 mls @ 65 mls/hr IV ASDIRECTED [facility] Last Admin: 10/18/16 10:53 Dose: 65 mls/hr Isosorbide Mononitrate (Imdur) 60 mg PO ACBREAKFAST [facility] Last Admin: 10/19/16 07:48 Dose: 60 mg Levalbuterol HCl (Xopenex) 1.25 mg NEB QID PRN PRN Reason: Shortness of Breath Miscellaneous Information (Remove Patch) 1 ea TRDERM Q72H [facility] Morphine Sulfate (Morphine) 1 mg IVPUSH Q2H PRN PRN Reason: Pain Last Admin: 10/19/16 03:57 Dose: 1 mg Nitroglycerin (Nitrostat) 0.4 mg SL Q5M PRN PRN Reason: Chest Pain Last Admin: 10/19/16 08:17 Dose: 0.4 mg Ondansetron HCl (Zofran) 4 mg IVPUSH Q8H PRN PRN Reason: Nausea/Vomiting Polyethylene Glycol (Miralax) 17 gm PO ASDIRECTED PRN PRN Reason: Constipation Last Admin: 10/17/16 01:12 Dose: 17 gm Rosuvastatin Calcium (Crestor) 5 mg PO ACBREAKFAST [facility] Last Admin: 10/19/16 07:48 Dose: 5 mg Sodium Chloride (Saline Flush) 10 ml FLUSH ASDIRECTED PRN PRN Reason: Keep Vein Open Tamsulosin HCl (Flomax) 0.4 mg PO DAILY [facility] Last Admin: 10/19/16 08:05 Dose: 0.4 mg Terazosin HCl (Hytrin) 1 mg PO BEDTIME [facility] Last Admin: 10/18/16 20:47 Dose: 1 mg Discontinued Medications Bumetanide (Bumex) 1 mg IVPUSH ONETIME ONE Stop: 10/17/16 16:12 Last Admin: 10/17/16 17:41 Dose: 1 mg Bumetanide (Bumex) 1 mg IVPUSH ONETIME ONE Stop: 10/18/16 14:55 Last Admin: 10/18/16 15:52 Dose: Not Given Carvedilol (Coreg) 6.25 mg PO BID [facility] Last Admin: 10/19/16 08:04 Dose: 6.25 mg Diatrizoate Meglum/Diatrizoate Sod (Gastrografin 37%) 90 ml PO ONETIME ONE Stop: 10/16/16 04:16 Last Admin: 10/16/16 04:38 Dose: 90 ml Diphtheria/Tetanus/Acell Pertussis (Boostrix) 0.5 ml IM .ONCE ONE Stop: 10/18/16 11:58 Furosemide (Lasix) 20 mg IVPUSH NOW ONE Stop: 10/16/16 13:15 Last Admin: 10/16/16 13:37 Dose: 20 mg Hydromorphone HCl (Dilaudid) 0.5 mg IVPUSH ONETIME ONE Stop: 10/16/16 02:23 Last Admin: 10/16/16 02:29 Dose: 0.5 mg Hydromorphone HCl (Dilaudid) 1 mg IVPUSH ONETIME ONE Stop: 10/16/16 08:09 Last Admin: 10/16/16 08:14 Dose: 1 mg Hydromorphone HCl (Dilaudid) Confirm Administered Dose 1 mg .ROUTE .STK-MED ONE Stop: 10/16/16 08:11 Last Admin: 10/16/16 08:17 Dose: Not Given Hydromorphone HCl (Dilaudid) 1 mg IVPUSH Q3H PRN PRN Reason: Pain Hydromorphone HCl (Dilaudid) 0.5 mg IVPUSH Q4H PRN PRN Reason: Pain Last Admin: 10/17/16 10:38 Dose: 0.5 mg Sodium Chloride (Normal Saline) 1,000 mls @ 125 mls/hr IV ASDIRECTED [facility] Last Admin: 10/16/16 03:19 Dose: 125 mls/hr Sodium Chloride (Normal Saline) 100 mls @ 60 mls/hr IV ASDIRECTED [facility] Last Admin: 10/16/16 04:41 Dose: 60 mls/hr Levofloxacin/Dextrose 750 mg/ (Premix) 150 mls @ 100 mls/hr IV ONETIME ONE Stop: 10/16/16 07:01 Last Admin: 10/16/16 05:41 Dose: 100 mls/hr Piperacillin Sod/Tazobactam (Sod 4.5 gm/ Sodium Chloride) 100 mls @ 200 mls/hr IV ONETIME ONE Stop: 10/16/16 06:27 Last Admin: 10/16/16 11:11 Dose: Not Given Sodium Chloride (Normal Saline) 1,000 mls @ 150 mls/hr IV ASDIRECTED PRN PRN Reason: Hypotension Piperacillin Sod/Tazobactam (Sod 4.5 gm/ Sodium Chloride) 100 mls @ 200 mls/hr IV ONETIME ONE Stop: 10/16/16 11:29 Last Admin: 10/16/16 11:05 Dose: 200 mls/hr Sodium Chloride (Normal Saline) 1,000 mls @ 70 mls/hr IV ASDIRECTED PRN PRN Reason: Hypotension Last Admin: 10/16/16 12:58 Dose: 70 mls/hr Levofloxacin/Dextrose 750 mg/ (Premix) 150 mls @ 100 mls/hr IV Q48H [facility] Last Admin: 10/16/16 13:36 Dose: 100 mls/hr Piperacillin Sod/Tazobactam (Sod 4.5 gm/ Sodium Chloride) 100 mls @ 25 mls/hr IV Q8H [facility] Last Admin: 10/16/16 13:42 Dose: Not Given Iopamidol (Isovue-370 (76%)) 100 ml IVPUSH ONETIME ONE Stop: 10/16/16 04:16 Last Admin: 10/16/16 04:39 Dose: 100 ml Iopamidol (Isovue-370 (76%)) 100 ml IVPUSH ONETIME ONE Stop: 10/18/16 09:58 Last Admin: 10/18/16 10:49 Dose: 100 ml Iopamidol (Isovue-370 (76%)) 50 ml IVPUSH ONETIME ONE Stop: 10/18/16 09:58 Last Admin: 10/18/16 10:49 Dose: 50 ml Isosorbide Mononitrate (Imdur) 30 mg PO ACBREAKFAST [facility] Last Admin: 10/18/16 07:28 Dose: 30 mg Morphine Sulfate (Morphine) Confirm Administered Dose 2 mg .ROUTE .STK-MED ONE Stop: 10/16/16 07:46 Last Admin: 10/16/16 08:18 Dose: Not Given Morphine Sulfate (Morphine) 1 mg IVPUSH Q2H PRN PRN Reason: Chest Pain Nitroglycerin (Nitrostat) 0.4 mg SL Q5M PRN PRN Reason: Chest Pain Nitroglycerin (Nitrostat) 0.4 mg SL Q5M PRN PRN Reason: Chest Pain Pneumococcal Polyvalent Vaccine (Pneumovax 23) 0.5 ml IM .ONCE ONE Stop: 10/18/16 12:00 Sodium Chloride (Saline Flush) 10 ml FLUSH ASDIRECTED PRN PRN Reason: Keep Vein Open Last Admin: 10/16/16 02:29 Dose: 10 ml Sodium Chloride (Saline Flush) 10 ml FLUSH ONETIME ONE Stop: 10/16/16 04:16 Last Admin: 10/16/16 04:41 Dose: 10 ml Sodium Chloride (Saline Flush) 10 ml FLUSH ONETIME PRN PRN Reason: IV FLUSH Last Admin: 10/18/16 10:49 Dose: 10 ml - Problem List & Annotations (1) Back pain SNOMED Code(s): 283867805 Code(s): M54.9 - DORSALGIA, UNSPECIFIED Status: Chronic Current Visit: Yes Qualifiers: Back pain location: low back pain Chronicity: chronic Back pain laterality: right Sciatica presence: without sciatica Qualified Code(s): M54.5 - Low back pain; G89.29 - Other chronic pain (2) CHF (congestive heart failure) SNOMED Code(s): 74420704 Code(s): I50.9 - HEART FAILURE, UNSPECIFIED Status: Chronic Priority: High Current Visit: Yes Qualifiers: Congestive heart failure type: unspecified congestive heart failure type Congestive heart failure chronicity: acute on chronic Qualified Code(s): I50.9 - Heart failure, unspecified (3) Chest pain SNOMED Code(s): 60070586 Code(s): R07.9 - CHEST PAIN, UNSPECIFIED Status: Acute Priority: Medium Current Visit: Yes Onset Date: 01/27/14 (4) Elevated troponin SNOMED Code(s): 395813314, 463784713 Code(s): R74.8 - ABNORMAL LEVELS OF OTHER SERUM ENZYMES Status: Chronic Priority: Medium Current Visit: Yes (5) Leukocytosis SNOMED Code(s): 927294175, 489201942 Code(s): D72.829 - ELEVATED WHITE BLOOD CELL COUNT, UNSPECIFIED Status: Acute Priority: High Current Visit: Yes Qualifiers: Leukocytosis type: unspecified Qualified Code(s): D72.829 - Elevated white blood cell count, unspecified (6) Loculated pleural effusion SNOMED Code(s): 187303294 Code(s): J90 - PLEURAL EFFUSION, NOT ELSEWHERE CLASSIFIED Status: Acute Priority: High Current Visit: Yes (7) Renal insufficiency SNOMED Code(s): 356766899 Code(s): N28.9 - DISORDER OF KIDNEY AND URETER, UNSPECIFIED Status: Chronic Priority: Medium Current Visit: Yes (8) Splenic infarct SNOMED Code(s): 93310853 Code(s): D73.5 - INFARCTION OF SPLEEN Status: Acute Priority: High Current Visit: Yes - My Orders Last 24 Hours: My Active Orders 10/18/16 15:08 Isosorbide Mononitrate [Imdur] 60 mg PO ACBREAKFAST 10/18/16 21:00 Terazosin [Hytrin] 1 mg PO BEDTIME 10/19/16 11:41 Bladder Scan [RC] Q8HPRN 10/19/16 21:00 Aspirin 81 mg PO BEDTIME 10/20/16 05:00 MAGNESIUM [CHEM] DAILY 10/20/16 11:00 Remove Patch 1 ea TRDERM Q72H - Plan Plan:: Will add ASA, need to investigate why he is not on an ACEI/ARB. Will avoid diurese today, has been exposed to IV dye for CTA of thorax. Suggest: increase BB as tolerated; BP MAP<60, narrow pulse pressure; possibly add Ranexa for chronic angina, avoid amlodipne for peripheral edema; may benefit from low dose Aldactone 12.5 mg qd; should be considered for AICD given ICMP/LVEF 25-30% based on current guidelines. Family meeting, TBA
[2016-10-19] MEDS: Carvedilol 3.125 MG Tab PO SCH ×2 (12:10→22:17)
[2016-10-20] MEDS: Terazosin 1 MG Cap PO SCH ×2 (00:33→20:25)
[2016-10-20] MEDS: Aspirin 81 MG Tab.Chew PO SCH ×2 (00:33→20:24)
[2016-10-20] MEDS: Acetaminophen/HYDROcodone 325-5 MG Tab PO PRN ×2 (00:34→16:01)
[2016-10-20] MEDS: Piperacillin/Tazobactam 4.5 GM in Sodium Chloride 0.9% 100 ML IV SCH ×3 (02:31→18:41)
[2016-10-20] MEDS: Levofloxacin/Dextrose 5%-Water 750 MG in Premix Bag 1 BAG IV SCH (06:28)
[2016-10-20] MEDS: Rosuvastatin 10 MG Tab PO SCH (06:29)
[2016-10-20] MEDS: Isosorbide Mononitrate 30 MG Tab.ER PO SCH (06:29)
[2016-10-20] MEDS ORDERED: Bumetanide 1 MG/4 ML MDV IVPUSH ONE (07:43)
--- NOTE | 2016-10-20 08:24 | PCM.SN ---
- Free Text/Narrative Note: Spoke with Radiology/US Rosy willis; clarified for abdominal US order; to quantify ascites. Limited US can be completed.
[2016-10-20] MEDS: Carvedilol 3.125 MG Tab PO SCH ×3 (09:21→20:25)
[2016-10-20] MEDS: Carvedilol 6.25 MG Tab PO SCH ×3 (09:21→20:24)
[2016-10-20] MEDS: Enoxaparin 30 MG/0.3 ML Syringe SUBCUT SCH (09:21)
[2016-10-20] MEDS: Potassium Chloride 20 MEQ Tab.ER PO SCH ×2 (09:22→20:24)
[2016-10-20] MEDS: Tamsulosin 0.4 MG Cap.ER PO SCH (09:22)
[2016-10-20] MEDS: fentaNYL 12 MCG/HR Transdermal Patch TRDERM SCH (10:00)
[2016-10-20] MEDS ORDERED: Sodium Chloride 0.9% 1,000 ML IV SCH (10:00)
[2016-10-20] MEDS ORDERED: Potassium Chloride 10% 20 MEQ/15 ML Soln 30 ML UD Cup PO ONE (10:29)
--- NOTE | 2016-10-20 11:46 | US ---
Limited abdominal ultrasound: Multiple real-time images were obtained for ascites evaluation. Moderate amount of ascites is seen throughout the abdomen and pelvis. Pleural effusions are also noted. Impression: 1. Moderate amount of ascites throughout the abdomen and pelvis. 2. Pleural effusions. Diagnostic code #3
--- NOTE | 2016-10-20 12:23 | PCM.PN ---
- General Info Date of Service: 10/20/16 Admission Dx/Problem (Free Text): Wants to go home; family meeting scheduled. Await results of Abdominal US, possible paracentesis. Functional Status: Reports: tolerating diet, urinating (needs straight cath) - Review of Systems General: Reports: Weakness HEENT: Reports: no symptoms Pulmonary: Reports: shortness of breath Cardiovascular: Reports: No Symptoms Gastrointestinal: Reports: No symptoms Genitourinary: Reports: no symptoms Musculoskeletal: Reports: back pain Skin: Reports: no symptoms Neurological: Reports: No Symptoms Psychiatric: Reports: no symptoms - Patient Data Vitals - most recent: Last Vital Signs Temp 37.7 C 10/20/16 12:04 Pulse 61 10/20/16 12:04 Resp 18 10/20/16 12:04 BP 95/63 10/20/16 12:04 Pulse Ox 96 10/20/16 12:04 Weight - most recent: 84.096 kg I&O - last 24 hours: Intake & Output 10/19/16 10/20/16 10/20/16 22:59 06:59 14:59 Intake Total 670 500 388 Output Total 525 0 Balance 145 500 388 Lab Results last 24 hrs: Laboratory Results - last 24 hr 10/20/16 10/20/16 10/20/16 Range/Units 06:00 06:00 06:00 WBC 6.46 (4.23-9.07) K/mm3 RBC 4.72 (4.63-6.08) M/mm3 Hgb 9.3 L (13.7-17.5) gm/L Hct 31.1 L (40.1-51.0) % MCV 65.9 L (79.0-92.2) fl MCH 19.7 L (25.7-32.2) pg MCHC 29.9 L (32.2-35.5) g/dl RDW Std Deviation 45.2 H (35.1-43.9) fL Plt Count 205 (163-337) K/mm3 MPV 10.1 (9.4-12.3) fl Neut % (Auto) 74.5 H (34.0-67.9) % Lymph % (Auto) 10.8 L (21.8-53.1) % [place] % (Auto) 12.8 H (5.3-12.2) % Eos % (Auto) 1.5 (0.8-7.0) Baso % (Auto) 0.2 (0.1-1.2) % Neut # (Auto) 4.81 (1.78-5.38) K/mm3 Lymph # (Auto) 0.70 L (1.32-3.57) K/mm3 [place] # (Auto) 0.83 H (0.30-0.82) K/mm3 Eos # (Auto) 0.10 (0.04-0.54) K/mm3 Baso # (Auto) 0.01 (0.01-0.08) K/mm3 Manual Slide Review Abnormal smear Sodium 139 (136-145) mEq/L Potassium 3.3 L (3.5-5.1) mEq/L Chloride 101 (98-107) mEq/L Carbon Dioxide 26 (21-32) mEq/L Anion Gap 15.3 H (5-15) BUN 36 H (7-18) mg/dL Creatinine 2.0 H (0.7-1.3) mg/dL Est Cr Clr Drug Dosing 23.92 mL/min Estimated GFR (MDRD) 32 (>60) mL/min BUN/Creatinine Ratio 18.0 (14-18) Glucose 107 (83-115) mg/dL Calcium 8.7 (8.5-10.1) mg/dL Magnesium 2.5 H (1.8-2.4) mg/dl C-Reactive Protein 9.6 H* (<1.0) mg/dL B-Natriuretic Peptide (0-100) pg/mL 10/20/16 Range/Units 06:00 WBC (4.23-9.07) K/mm3 RBC (4.63-6.08) M/mm3 Hgb (13.7-17.5) gm/L Hct (40.1-51.0) % MCV (79.0-92.2) fl MCH (25.7-32.2) pg MCHC (32.2-35.5) g/dl RDW Std Deviation (35.1-43.9) fL Plt Count (163-337) K/mm3 MPV (9.4-12.3) fl Neut % (Auto) (34.0-67.9) % Lymph % (Auto) (21.8-53.1) % [place] % (Auto) (5.3-12.2) % Eos % (Auto) (0.8-7.0) Baso % (Auto) (0.1-1.2) % Neut # (Auto) (1.78-5.38) K/mm3 Lymph # (Auto) (1.32-3.57) K/mm3 [place] # (Auto) (0.30-0.82) K/mm3 Eos # (Auto) (0.04-0.54) K/mm3 Baso # (Auto) (0.01-0.08) K/mm3 Manual Slide Review Sodium (136-145) mEq/L Potassium (3.5-5.1) mEq/L Chloride (98-107) mEq/L Carbon Dioxide (21-32) mEq/L Anion Gap (5-15) BUN (7-18) mg/dL Creatinine (0.7-1.3) mg/dL Est Cr Clr Drug Dosing mL/min Estimated GFR (MDRD) (>60) mL/min BUN/Creatinine Ratio (14-18) Glucose (83-115) mg/dL Calcium (8.5-10.1) mg/dL Magnesium (1.8-2.4) mg/dl C-Reactive Protein (<1.0) mg/dL B-Natriuretic Peptide 764 H (0-100) pg/mL [place] Results last 24 hrs: Microbiology 10/17/16 00:40 Streptococcus pneumoniae Antigen (M - Final Urine Med Orders - Current: Current Medications Hydrocodone Bitart/Acetaminophen ([place] 325-5 Mg) 1 tab PO Q6H PRN PRN Reason: Pain (moderate 4-6) Last Admin: 10/20/16 00:34 Dose: 1 tab Aspirin (Aspirin) 81 mg PO BEDTIME [facility] Last Admin: 10/20/16 00:33 Dose: 81 mg Belladonna Alkaloids/Opium (B & O Supprettes No. 15a) 1 supp RECTAL Q6H PRN PRN Reason: bladder pain/spasm Bisacodyl (Dulcolax) 10 mg RECTAL DAILY PRN PRN Reason: Constipation Last Admin: 10/17/16 03:47 Dose: 10 mg Bumetanide (Bumex) 2 mg PO DAILY [facility] Last Admin: 10/17/16 09:20 Dose: 2 mg Carvedilol (Coreg) 3.125 mg PO BID [facility] Last Admin: 10/20/16 11:02 Dose: 3.125 mg Carvedilol (Coreg) 6.25 mg PO BID [facility] Last Admin: 10/20/16 11:02 Dose: 6.25 mg Enoxaparin Sodium (Lovenox) 30 mg SUBCUT DAILY [facility] Last Admin: 10/20/16 09:21 Dose: 30 mg Fentanyl (Duragesic) 12 mcg TRDERM Q72H [facility] Last Admin: 10/20/16 10:00 Dose: 12 mcg Hydromorphone HCl (Dilaudid) 0.5 mg IVPUSH Q2H PRN PRN Reason: Pain Last Admin: 10/19/16 16:25 Dose: 0.5 mg Sodium Chloride (Normal Saline) 500 mls @ 999 mls/hr IV ASDIRECTED PRN PRN Reason: Hypotension Last Admin: 10/16/16 08:05 Dose: 999 mls/hr Piperacillin Sod/Tazobactam (Sod 4.5 gm/ Sodium Chloride) 100 mls @ 25 mls/hr IV Q8H [facility] Last Admin: 10/20/16 09:59 Dose: 25 mls/hr Levofloxacin/Dextrose 750 mg/ (Premix) 150 mls @ 100 mls/hr IV Q48H [facility] Last Admin: 10/20/16 06:28 Dose: 100 mls/hr Sodium Chloride (Normal Saline) 1,000 mls @ 50 mls/hr IV ASDIRECTED [facility] Last Admin: 10/20/16 10:08 Dose: 50 mls/hr Isosorbide Mononitrate (Imdur) 60 mg PO ACBREAKFAST [facility] Last Admin: 10/20/16 06:29 Dose: 60 mg Levalbuterol HCl (Xopenex) 1.25 mg NEB QID PRN PRN Reason: Shortness of Breath Miscellaneous Information (Remove Patch) 1 ea TRDERM Q72H [facility] Last Admin: 10/20/16 10:03 Dose: 1 ea Morphine Sulfate (Morphine) 1 mg IVPUSH Q2H PRN PRN Reason: Pain Last Admin: 10/19/16 03:57 Dose: 1 mg Nitroglycerin (Nitrostat) 0.4 mg SL Q5M PRN PRN Reason: Chest Pain Last Admin: 10/19/16 08:17 Dose: 0.4 mg Ondansetron HCl (Zofran) 4 mg IVPUSH Q8H PRN PRN Reason: Nausea/Vomiting Last Admin: 10/19/16 14:52 Dose: 4 mg Polyethylene Glycol (Miralax) 17 gm PO ASDIRECTED PRN PRN Reason: Constipation Last Admin: 10/17/16 01:12 Dose: 17 gm Potassium Chloride (Klor-Con M20) 20 meq PO BID [facility] Last Admin: 10/20/16 09:22 Dose: 20 meq Rosuvastatin Calcium (Crestor) 5 mg PO ACBREAKFAST [facility] Last Admin: 10/20/16 06:29 Dose: 5 mg Sodium Chloride (Saline Flush) 10 ml FLUSH ASDIRECTED PRN PRN Reason: Keep Vein Open Tamsulosin HCl (Flomax) 0.4 mg PO DAILY [facility] Last Admin: 10/20/16 09:22 Dose: 0.4 mg Terazosin HCl (Hytrin) 1 mg PO BEDTIME [facility] Last Admin: 10/20/16 00:33 Dose: 1 mg Discontinued Medications Bumetanide (Bumex) 1 mg IVPUSH ONETIME ONE Stop: 10/17/16 16:12 Last Admin: 10/17/16 17:41 Dose: 1 mg Bumetanide (Bumex) 1 mg IVPUSH ONETIME ONE Stop: 10/18/16 14:55 Last Admin: 10/18/16 15:52 Dose: Not Given Bumetanide (Bumex) 0.5 mg IVPUSH ONETIME ONE Stop: 10/20/16 07:44 Last Admin: 10/20/16 09:17 Dose: 0.5 mg Carvedilol (Coreg) 6.25 mg PO BID [facility] Last Admin: 10/19/16 08:04 Dose: 6.25 mg Diatrizoate Meglum/Diatrizoate Sod (Gastrografin 37%) 90 ml PO ONETIME ONE Stop: 10/16/16 04:16 Last Admin: 10/16/16 04:38 Dose: 90 ml Diphtheria/Tetanus/Acell Pertussis (Boostrix) 0.5 ml IM .ONCE ONE Stop: 10/18/16 11:58 Furosemide (Lasix) 20 mg IVPUSH NOW ONE Stop: 10/16/16 13:15 Last Admin: 10/16/16 13:37 Dose: 20 mg Hydromorphone HCl (Dilaudid) 0.5 mg IVPUSH ONETIME ONE Stop: 10/16/16 02:23 Last Admin: 10/16/16 02:29 Dose: 0.5 mg Hydromorphone HCl (Dilaudid) 1 mg IVPUSH ONETIME ONE Stop: 10/16/16 08:09 Last Admin: 10/16/16 08:14 Dose: 1 mg Hydromorphone HCl (Dilaudid) Confirm Administered Dose 1 mg .ROUTE .STK-MED ONE Stop: 10/16/16 08:11 Last Admin: 10/16/16 08:17 Dose: Not Given Hydromorphone HCl (Dilaudid) 1 mg IVPUSH Q3H PRN PRN Reason: Pain Hydromorphone HCl (Dilaudid) 0.5 mg IVPUSH Q4H PRN PRN Reason: Pain Last Admin: 10/17/16 10:38 Dose: 0.5 mg Sodium Chloride (Normal Saline) 1,000 mls @ 125 mls/hr IV ASDIRECTED [facility] Last Admin: 10/16/16 03:19 Dose: 125 mls/hr Sodium Chloride (Normal Saline) 100 mls @ 60 mls/hr IV ASDIRECTED [facility] Last Admin: 10/16/16 04:41 Dose: 60 mls/hr Levofloxacin/Dextrose 750 mg/ (Premix) 150 mls @ 100 mls/hr IV ONETIME ONE Stop: 10/16/16 07:01 Last Admin: 10/16/16 05:41 Dose: 100 mls/hr Piperacillin Sod/Tazobactam (Sod 4.5 gm/ Sodium Chloride) 100 mls @ 200 mls/hr IV ONETIME ONE Stop: 10/16/16 06:27 Last Admin: 10/16/16 11:11 Dose: Not Given Sodium Chloride (Normal Saline) 1,000 mls @ 150 mls/hr IV ASDIRECTED PRN PRN Reason: Hypotension Piperacillin Sod/Tazobactam (Sod 4.5 gm/ Sodium Chloride) 100 mls @ 200 mls/hr IV ONETIME ONE Stop: 10/16/16 11:29 Last Admin: 10/16/16 11:05 Dose: 200 mls/hr Sodium Chloride (Normal Saline) 1,000 mls @ 70 mls/hr IV ASDIRECTED PRN PRN Reason: Hypotension Last Admin: 10/16/16 12:58 Dose: 70 mls/hr Levofloxacin/Dextrose 750 mg/ (Premix) 150 mls @ 100 mls/hr IV Q48H [facility] Last Admin: 10/16/16 13:36 Dose: 100 mls/hr Piperacillin Sod/Tazobactam (Sod 4.5 gm/ Sodium Chloride) 100 mls @ 25 mls/hr IV Q8H [facility] Last Admin: 10/16/16 13:42 Dose: Not Given Sodium Chloride (Normal Saline) 100 mls @ 65 mls/hr IV ASDIRECTED [facility] Last Admin: 10/18/16 10:53 Dose: 65 mls/hr Iopamidol (Isovue-370 (76%)) 100 ml IVPUSH ONETIME ONE Stop: 10/16/16 04:16 Last Admin: 10/16/16 04:39 Dose: 100 ml Iopamidol (Isovue-370 (76%)) 100 ml IVPUSH ONETIME ONE Stop: 10/18/16 09:58 Last Admin: 10/18/16 10:49 Dose: 100 ml Iopamidol (Isovue-370 (76%)) 50 ml IVPUSH ONETIME ONE Stop: 10/18/16 09:58 Last Admin: 10/18/16 10:49 Dose: 50 ml Isosorbide Mononitrate (Imdur) 30 mg PO ACBREAKFAST [facility] Last Admin: 10/18/16 07:28 Dose: 30 mg Morphine Sulfate (Morphine) Confirm Administered Dose 2 mg .ROUTE .STK-MED ONE Stop: 10/16/16 07:46 Last Admin: 10/16/16 08:18 Dose: Not Given Morphine Sulfate (Morphine) 1 mg IVPUSH Q2H PRN PRN Reason: Chest Pain Nitroglycerin (Nitrostat) 0.4 mg SL Q5M PRN PRN Reason: Chest Pain Nitroglycerin (Nitrostat) 0.4 mg SL Q5M PRN PRN Reason: Chest Pain Pneumococcal Polyvalent Vaccine (Pneumovax 23) 0.5 ml IM .ONCE ONE Stop: 10/18/16 12:00 Potassium Chloride (Potassium Chloride) 40 meq PO ONETIME ONE Stop: 10/20/16 10:30 Last Admin: 10/20/16 11:04 Dose: 40 meq Sodium Chloride (Saline Flush) 10 ml FLUSH ASDIRECTED PRN PRN Reason: Keep Vein Open Last Admin: 10/16/16 02:29 Dose: 10 ml Sodium Chloride (Saline Flush) 10 ml FLUSH ONETIME ONE Stop: 10/16/16 04:16 Last Admin: 10/16/16 04:41 Dose: 10 ml Sodium Chloride (Saline Flush) 10 ml FLUSH ONETIME PRN PRN Reason: IV FLUSH Last Admin: 10/18/16 10:49 Dose: 10 ml - Exam Quality Assessment: supplemental oxygen, DVT prophylaxis General: alert, oriented, cooperative, no acute distress HEENT: Pupils equal, Pupils reactive, EOMI Neck: supple, trachea midline, no JVD Lungs: Normal respiratory effort, Decreased breath sounds, Crackles Cardiovascular: Regular Rate, Irregular Rhythm Abdomen: bowel sounds present, soft, tenderness, distension (Male) Exam: Deferred Back Exam: normal inspection Extremities: normal pulses Skin: warm Neurological: no new focal deficit, normal speech Psy/Mental Status: alert - Problem List & Annotations (1) Back pain SNOMED Code(s): 875957853 Code(s): M54.9 - DORSALGIA, UNSPECIFIED Status: Chronic Current Visit: Yes Qualifiers: Back pain location: low back pain Chronicity: chronic Back pain laterality: right Sciatica presence: without sciatica Qualified Code(s): M54.5 - Low back pain; G89.29 - Other chronic pain (2) CHF (congestive heart failure) SNOMED Code(s): 81283639 Code(s): I50.9 - HEART FAILURE, UNSPECIFIED Status: Chronic Priority: High Current Visit: Yes Qualifiers: Congestive heart failure type: unspecified congestive heart failure type Congestive heart failure chronicity: acute on chronic Qualified Code(s): I50.9 - Heart failure, unspecified (3) Chest pain SNOMED Code(s): 39064681 Code(s): R07.9 - CHEST PAIN, UNSPECIFIED Status: Acute Priority: Medium Current Visit: Yes Onset Date: 01/27/14 (4) Elevated troponin SNOMED Code(s): 216804642, 828956988 Code(s): R74.8 - ABNORMAL LEVELS OF OTHER SERUM ENZYMES Status: Chronic Priority: Medium Current Visit: Yes (5) Leukocytosis SNOMED Code(s): 599641769, 747343818 Code(s): D72.829 - ELEVATED WHITE BLOOD CELL COUNT, UNSPECIFIED Status: Acute Priority: High Current Visit: Yes Qualifiers: Leukocytosis type: unspecified Qualified Code(s): D72.829 - Elevated white blood cell count, unspecified (6) Loculated pleural effusion SNOMED Code(s): 945309865 Code(s): J90 - PLEURAL EFFUSION, NOT ELSEWHERE CLASSIFIED Status: Acute Priority: High Current Visit: Yes (7) Renal insufficiency SNOMED Code(s): 089150055 Code(s): N28.9 - DISORDER OF KIDNEY AND URETER, UNSPECIFIED Status: Chronic Priority: Medium Current Visit: Yes (8) Splenic infarct SNOMED Code(s): 74676563 Code(s): D73.5 - INFARCTION OF SPLEEN Status: Acute Priority: High Current Visit: Yes - Problem List Review Problem List Initiated/Reviewed/Updated: Yes - My Orders Last 24 Hours: My Active Orders 10/19/16 11:41 Bladder Scan [RC] Q8HPRN 10/19/16 21:00 Aspirin 81 mg PO BEDTIME 10/20/16 10:00 Sodium Chloride 0.9% [Normal Saline] 1,000 ml IV ASDIRECTED 10/20/16 11:00 Remove Patch 1 ea TRDERM Q72H - Assessment Assessment:: LOS >96 hours - Plan Plan:: Impression/Plan: CHF, systolic dysfunction ICMP, 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 Will avoid diurese today, has been exposed to IV dye for CTA of thorax. Suggest: increase BB as tolerated; BP MAP<60, narrow pulse pressure; possibly add Ranexa for chronic angina, avoid amlodipne for peripheral edema; may benefit from low dose Aldactone 12.5 mg qd; should be considered for AICD given ICMP/LVEF 25-30% based on current guidelines. Address aguilar need, continue flomax Probable lack of coumadin or NOACS because of history of GI bleed; clarify at follow up as an outpatient Oral antibiotic at [facility] General surgery consult re; ascites, probable paracentesis, TBD.
[2016-10-20] MEDS: Morphine 15 MG Tab.ER PO SCH ×2 (12:43→20:25)
--- NOTE | 2016-10-20 18:46 | PCM.PRNOTE ---
- Free Text/Narrative Note: PROCEDURE NOTE: PARACENTESIS with ultrasound guidance Indication: Ascites The risks (including bleeding and infection) and benefits of the procedure were discussed and written informed consent obtained. Time out was performed. The patient was placed in a semi-recumbent position in a procedural chair. Ultrasound was used to identify the fluid present within the abdomen and the ideal location for needle entry which was marked. The abdomen was prepped with chlorhexidine, and draped in the usual sterile fashion, local anesthesia was performed with Lidocaine 1% with epinephrine (total 5 mL). A scalpel was used to make a small stab incision between superficial abdominal wall veins in the right lower quadrant and a paracentesis catheter was advanced while continuously aspirating, ascitic fluid was obtained and the catheter was advanced. The catheter was then aspirated and specimens were collected for analysis - the ascites was clear hue. The catheter was then connected to a vacutainer and a total of 1000 mL of fluid was obtained. The catheter was then withdrawn and pressure held. A band-aid was applied. The specimen was sent for testing as this was the patient's first paracentesis. The patient tolerated the procedure well and without apparent complications. The patient was instructed to keep the wound dry and covered for 24-48 HR and clean thereafter, and warning signs of infection were reviewed.
--- NOTE | 2016-10-20 18:47 | PCM.CONS ---
H&P History of Present Illness - General Date of Service: 10/20/16 Admit Problem/Dx: Admission Diagnosis/Problem Admission Diagnosis/Problem Leukocytosis LLL PNA Splenic infarct CHF Source of Information: Old records, Provider History Limitations: Reports: Physical impairment - History of Present Illness Initial Comments - Free Text/Narative: 86 yo M I was asked to see in consultation by Dr. 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 He has never had a paracentesis before He feels distended and tight He has increased work of breathing His cannot provide much of a history also Middle Back Pain Score (Numeric/FACES): 8 - Related Data Allergies/Adverse Reactions: Allergies Allergy/AdvReac Type Severity Reaction Status Date / Time cephalexin [Cephalexin] Allergy Unknown Unknown Verified 10/16/16 02:11 Home Medications: Home Meds Polyethylene Glycol 3350 [MiraLAX] 17 gm PO ASDIRECTED PRN 07/06/15 [History] Nitroglycerin [Nitrostat] 0.4 mg SL Q5M PRN #25 tab.sl 07/09/16 [Rx] Rosuvastatin [Crestor] 5 mg PO ACBREAKFAST 10/17/16 [History] Bumetanide 1 mg PO BID #60 10/21/16 [Rx] Carvedilol [Coreg] 3.125 mg PO BID #60 tablet 10/21/16 [Rx] Carvedilol [Coreg] 6.25 mg PO BID #60 tablet 10/21/16 [Rx] Isosorbide Mononitrate [Imdur] 60 mg PO ACBREAKFAST #30 tab.er 10/21/16 [Rx] Morphine [MS Contin] 15 mg PO BID #60 tab.er 10/21/16 [Rx] Potassium Chloride [Klor-Con M20] 20 meq PO BID #60 tab.er 10/21/16 [Rx] Tamsulosin [Flomax] 0.4 mg PO DAILY #30 cap.er 10/21/16 [Rx] Terazosin [Hytrin] 1 mg PO BEDTIME #30 cap 10/21/16 [Rx] fentaNYL [Duragesic] 12 mcg TRDERM Q72H #1 box 10/21/16 [Rx] Past Medical History HEENT History: Reports: Cataract, Hard of hearing, Impaired vision Other HEENT History: Wears glasses Cardiovascular History: Reports: CAD, Heart Failure, High cholesterol, Hypertension, [place], Pacemaker, SOB on exertion Respiratory History: Reports: SOB Gastrointestinal History: Reports: GI bleed Genitourinary History: Reports: Retention, urinary Musculoskeletal History: Reports: Back pain, chronic Neurological History: Reports: Headaches, chronic Psychiatric History: Reports: None Endocrine/Metabolic History: Reports: None Hematologic History: Reports: Anemia, Blood transfusion(s) Immunologic History: Reports: None Oncologic (Cancer) History: Reports: None Dermatologic History: Reports: None - Infectious Disease History Infectious Disease History: Reports: Chicken pox, Measles, Mumps, Shingles - Past Surgical History HEENT Surgical History: Reports: Cataract surgery Cardiovascular Surgical History: Reports: Pacer Social & Family History - Family History Family Medical History: Noncontributory - Tobacco Use Smoking Status *Q: Never Smoker Years of Tobacco use: 30 Packs/Tins Daily: 1 Used Tobacco, but Quit: Yes Month Tobacco Last Used: 45 yrs Second Hand Smoke Exposure: No - Caffeine Use Caffeine Use: Reports: None - Alcohol Use Days Per Week of Alcohol Use: 0 Number of Drinks Per Day: 1 Total Drinks Per Week: 0 - Recreational Drug Use Recreational Drug Use: No - Living Situation & Occupation Living situation: Reports: Occupation: retired H&P Review of Systems - Review of Systems: Review Of Systems: Unable To Obtain Exam - Exam Exam: See Below - Vital Signs Vital Signs: Last Vital Signs Temp 98.2 F 10/20/16 16:02 Pulse 66 10/20/16 16:02 Resp 18 10/20/16 16:02 BP 93/59 L 10/20/16 16:02 Pulse Ox 92 L 10/20/16 16:02 Weight: 185 lb 6.4 oz - Exam General: alert, cooperative Lungs: Clear to auscultation, Normal respiratory effort Cardiovascular: regular rate, regular rhythm, other (JVD) Abdomen: distention, tenderness. No: peritoneal signs, guarding, rigidity, rebound Skin: warm, dry, intact Neuro Extensive - Mental Status: alert Psychiatric: alert - Patient Data Lab Results last 24 hrs: Laboratory Results - last 24 hr 10/20/16 10/20/1610/20/17 Range/Units 06:00 06:00 06:00 WBC 6.46 (4.23-9.07) K/mm3 RBC 4.72 (4.63-6.08) M/mm3 Hgb 9.3 L (13.7-17.5) gm/L Hct 31.1 L (40.1-51.0) % MCV 65.9 L (79.0-92.2) fl MCH 19.7 L (25.7-32.2) pg MCHC 29.9 L (32.2-35.5) g/dl RDW Std Deviation 45.2 H (35.1-43.9) fL Plt Count 205 (163-337) K/mm3 MPV 10.1 (9.4-12.3) fl Neut % (Auto) 74.5 H (34.0-67.9) % Lymph % (Auto) 10.8 L (21.8-53.1) % Monroe % (Auto) 12.8 H (5.3-12.2) % Eos % (Auto) 1.5 (0.8-7.0) Baso % (Auto) 0.2 (0.1-1.2) % Neut # (Auto) 4.81 (1.78-5.38) K/mm3 Lymph # (Auto) 0.70 L (1.32-3.57) K/mm3 Monroe # (Auto) 0.83 H (0.30-0.82) K/mm3 Eos # (Auto) 0.10 (0.04-0.54) K/mm3 Baso # (Auto) 0.01 (0.01-0.08) K/mm3 Manual Slide Review Abnormal smear PT (8.0-13.0) SECONDS INR APTT (22-36) SECONDS Sodium 139 (136-145) mEq/L Potassium 3.3 L (3.5-5.1) mEq/L Chloride 101 (98-107) mEq/L Carbon Dioxide 26 (21-32) mEq/L Anion Gap 15.3 H (5-15) BUN 36 H (7-18) mg/dL Creatinine 2.0 H (0.7-1.3) mg/dL Est Cr Clr Drug Dosing 23.92 mL/min Estimated GFR (MDRD) 32 (>60) mL/min BUN/Creatinine Ratio 18.0 (14-18) Glucose 107 (83-115) mg/dL Calcium 8.7 (8.5-10.1) mg/dL Magnesium 2.5 H (1.8-2.4) mg/dl C-Reactive Protein 9.6 H* (<1.0) mg/dL B-Natriuretic Peptide (0-100) pg/mL 10/20/16 10/20/16 Range/Units 06:00 14:29 WBC (4.23-9.07) K/mm3 RBC (4.63-6.08) M/mm3 Hgb (13.7-17.5) gm/L Hct (40.1-51.0) % MCV (79.0-92.2) fl MCH (25.7-32.2) pg MCHC (32.2-35.5) g/dl RDW Std Deviation (35.1-43.9) fL Plt Count (163-337) K/mm3 MPV (9.4-12.3) fl Neut % (Auto) (34.0-67.9) % Lymph % (Auto) (21.8-53.1) % Monroe % (Auto) (5.3-12.2) % Eos % (Auto) (0.8-7.0) Baso % (Auto) (0.1-1.2) % Neut # (Auto) (1.78-5.38) K/mm3 Lymph # (Auto) (1.32-3.57) K/mm3 Monroe # (Auto) (0.30-0.82) K/mm3 Eos # (Auto) (0.04-0.54) K/mm3 Baso # (Auto) (0.01-0.08) K/mm3 Manual Slide Review PT 14.0 H (8.0-13.0) SECONDS INR 1.27 APTT 43 H (22-36) SECONDS Sodium (136-145) mEq/L Potassium (3.5-5.1) mEq/L Chloride (98-107) mEq/L Carbon Dioxide (21-32) mEq/L Anion Gap (5-15) BUN (7-18) mg/dL Creatinine (0.7-1.3) mg/dL Est Cr Clr Drug Dosing mL/min Estimated GFR (MDRD) (>60) mL/min BUN/Creatinine Ratio (14-18) Glucose (83-115) mg/dL Calcium (8.5-10.1) mg/dL Magnesium (1.8-2.4) mg/dl C-Reactive Protein (<1.0) mg/dL B-Natriuretic Peptide 764 H (0-100) pg/mL Result Diagrams: 10/21/16 06:53 10/21/16 06:53 Umang Results last 24 hrs: Microbiology 10/17/16 00:40 Streptococcus pneumoniae Antigen (M - Final Urine Consult PN Assessment/Plan Procedures: Procedures AGENT NOS ASSAY W/OPTIC (09/08/15) ASSAY OF AMYLASE (04/16/16) ASSAY OF LACTIC ACID (10/05/15) ASSAY OF MAGNESIUM (08/11/14) ASSAY OF NATRIURETIC PEPTIDE (07/09/16) ASSAY OF TROPONIN QUANT (07/09/16) ASSAY THYROID STIM HORMONE (01/27/14) BLOOD TRANSFUSION SERVICE (10/05/15) BLOOD TYPING SEROLOGIC ABO (10/05/15) BLOOD TYPING SEROLOGIC RH(D) (10/05/15) C-REACTIVE PROTEIN (04/16/16) CHEST X-RAY 1 VIEW FRONTAL (07/09/16) CHEST X-RAY 2VW FRONTAL&LATL (06/27/16) COMPATIBILITY TEST ANTIGLOB (10/05/15) COMPLETE CBC W/AUTO DIFF WBC (08/24/16) COMPREHEN METABOLIC PANEL (08/24/16) CREATINE MB FRACTION (04/16/16) CT ABD & PELV W/CONTRAST (02/02/16) CT ABD & PELVIS W/O CONTRAST (08/24/16) CT LUMBAR SPINE W/O DYE (12/14/13) CT THORAX W/DYE (02/02/16) CULTURE AEROBIC IDENTIFY (12/18/15) CULTURE OTHR SPECIMN AEROBIC (12/18/15) ELECTROCARDIOGRAM TRACING (07/09/16) EMERGENCY DEPT VISIT (08/24/16) EMERGENCY DEPT VISIT (07/09/16) EMERGENCY DEPT VISIT (04/19/16) EMERGENCY DEPT VISIT (04/16/16) EMERGENCY DEPT VISIT (03/14/16) EMERGENCY DEPT VISIT (02/04/16) EMERGENCY DEPT VISIT (04/13/15) EMERGENCY DEPT VISIT (08/20/14) EMERGENCY DEPT VISIT (08/02/14) EMERGENCY DEPT VISIT (05/26/14) EMERGENCY DEPT VISIT (03/02/14) EMERGENCY DEPT VISIT (02/25/14) FIBRIN DEGRADATION QUANT (03/23/16) GAIT TRAINING THERAPY (09/08/15) GLYCOSYLATED HEMOGLOBIN TEST (01/27/14) HEMATOCRIT (10/05/15) HEMOGLOBIN (10/05/15) HYDRATE IV INFUSION ADD-ON (04/16/16) LEUKOCYTE ASSESSMENT FECAL (09/08/15) LIPID PANEL (01/27/14) MEASURE BLOOD OXYGEN LEVEL (09/08/15) MEASURE BLOOD OXYGEN LEVEL (01/27/14) METABOLIC PANEL TOTAL CA (10/05/15) MICROBE SUSCEPTIBLE UMANG (12/18/15) OT EVALUATION (09/08/15) PROTHROMBIN TIME (07/09/16) PT EVALUATION (09/08/15) RBC ANTIBODY SCREEN (10/05/15) ROUTINE VENIPUNCTURE (08/24/16) SELF CARE MNGMENT TRAINING (09/08/15) STOOL CULTR AEROBIC BACT EA (09/08/15) THER/DIAG CONCURRENT INF (04/16/15) THER/PROPH/DIAG INJ IV PUSH (08/24/16) THER/PROPH/DIAG INJ SC/IM (03/14/16) THER/PROPH/DIAG IV INF ADDON (04/16/15) THER/PROPH/DIAG IV INF INIT (04/16/15) THERAPEUTIC ACTIVITIES (09/08/15) THERAPEUTIC EXERCISES (09/08/15) THROMBOPLASTIN TIME PARTIAL (07/09/16) TISSUE EXAM BY PATHOLOGIST (01/23/16) TTE W/DOPPLER COMPLETE (10/05/15) TX/PRO/DX INJ NEW DRUG ADDON (06/27/16) TX/PRO/DX INJ SAME DRUG DIRECTOR TARGETED MARKETING (04/16/15) URINALYSIS AUTO W/SCOPE (08/24/16) URINE BACTERIA CULTURE (01/10/14) X-RAY EXAM L-S SPINE 2/3 VWS (04/13/15) X-RAY EXAM OF ABDOMEN (04/16/16) (1) Ascites SNOMED Code(s): 506579331 Code(s): R18.8 - OTHER ASCITES Problem List Initiated/Reviewed/Updated: Yes Plan: 86 yo M with ascites of uncertain etiology Paracentesis will be performed today. Risks and benefits reviewed with the patient including pain, bleeding, need for additional procedures, damage to surrounding structures, recurrence of the fluid.
[2016-10-21] MEDS: Piperacillin/Tazobactam 4.5 GM in Sodium Chloride 0.9% 100 ML IV SCH ×2 (04:22→11:19)
[2016-10-21] MEDS: Acetaminophen/HYDROcodone 325-5 MG Tab PO PRN ×2 (04:23→14:09)
[2016-10-21] MEDS: Isosorbide Mononitrate 30 MG Tab.ER PO SCH (06:25)
[2016-10-21] MEDS: Rosuvastatin 10 MG Tab PO SCH (06:26)
[2016-10-21] MEDS: Bumetanide 1 MG Tab PO SCH (09:46)
[2016-10-21] MEDS: Tamsulosin 0.4 MG Cap.ER PO SCH (09:47)
[2016-10-21] MEDS: Potassium Chloride 20 MEQ Tab.ER PO SCH (09:47)
[2016-10-21] MEDS: Morphine 15 MG Tab.ER PO SCH (09:48)
[2016-10-21] MEDS: Carvedilol 3.125 MG Tab PO SCH ×2 (09:49→09:55)
[2016-10-21] MEDS: Carvedilol 6.25 MG Tab PO SCH (09:52)
[2016-10-21] MEDS: Enoxaparin 30 MG/0.3 ML Syringe SUBCUT SCH (09:52)
[2016-10-21 11:44] VITALS: BP 100/65
--- NOTE | 2016-10-21 12:42 | PCM.DCSUM1 ---
Discharge Summary - Hospital Course Free Text/Narrative:: 86 year old male with ICMP, CHF, A Fib presents with back pain; had a CT of abdomen and pelvis suggestive of possible splenic infarct. Additionally had asymmetrical LE swelling, a venous doppler was performed which documented no DVT. A 2D echo has been completed, but the results are not currently available. The back pain is chronic, he has also complained of bladder fullness , a bladder scan was inconclusive; ascites has decreased the sensitivity of the scan. The patient has a possible LLL infiltrate, empiric IV antibiotic has been started; a aguilar catheter has been placed for strict I/Os. Will obtain previous 2 D echo, patient may benefit from AICD. He was treated with Levaquin and zosyn for LLL pneumonia. Diuresis with IV mediation initially. Dr. Corrigan was consulted for paracentesis, see procedure note for details. Echocardiogram returned with 25-30% EF noted. He was working with PT/OT for strengthening. SNF was recommended but patient and family declined. He has been set up for HHC with PT/OT with follow up with PCP Dr. Oscar to follow HHC as outpatient. The day following discharge however HHC did fax notes stating patient refused HHC. Aguilar catheter was discontinued however the following 24 hours after discontinuation he continued to have urinary retention, bladder scanning protocol was followed and aguilar cath reinserted per protocol. At time of discharge patient refused to be discharged with foely despite education regarding failure of attempts without indwelling catheter and that Urology consult as outpatient was scheduled. He refused, reviewed options, risks and side effects with family- they all voice understanding. Aguilar catheter was discontinued. Again, patient is to follow up with PCP and Cardiology for further evaluation within 5 days of discharge. - Discharge Data Discharge Date: 10/21/16 (admit date 10/16/16) Discharge Disposition: Home, Self-Care 01 Condition: Good - Discharge Diagnosis/Problem(s) (1) LLL pneumonia SNOMED Code(s): 694766556 ICD Code: J18.1 - LOBAR PNEUMONIA, UNSPECIFIED ORGANISM Status: Acute Priority: High Qualifiers: Pneumonia type: due to unspecified organism Qualified Code(s): J18.1 - Lobar pneumonia, unspecified organism (2) CHF (congestive heart failure) SNOMED Code(s): 82686863 ICD Code: I50.9 - HEART FAILURE, UNSPECIFIED Status: Chronic Priority: High Qualifiers: Congestive heart failure type: unspecified congestive heart failure type Congestive heart failure chronicity: acute on chronic Qualified Code(s): I50.9 - Heart failure, unspecified (3) Chest pain SNOMED Code(s): 74792141 ICD Code: R07.9 - CHEST PAIN, UNSPECIFIED Status: Acute Priority: Medium Onset Date: 01/27/14 (4) Elevated troponin SNOMED Code(s): 715899285, 047398861 ICD Code: R74.8 - ABNORMAL LEVELS OF OTHER SERUM ENZYMES Status: Chronic Priority: Medium (5) Leukocytosis SNOMED Code(s): 104947655, 735614949 ICD Code: D72.829 - ELEVATED WHITE BLOOD CELL COUNT, UNSPECIFIED Status: Acute Priority: High Qualifiers: Leukocytosis type: unspecified Qualified Code(s): D72.829 - Elevated white blood cell count, unspecified (6) Splenic infarct SNOMED Code(s): 75796797 ICD Code: D73.5 - INFARCTION OF SPLEEN Status: Acute Priority: High (7) Loculated pleural effusion SNOMED Code(s): 774414825 ICD Code: J90 - PLEURAL EFFUSION, NOT ELSEWHERE CLASSIFIED Status: Acute Priority: High (8) Renal insufficiency SNOMED Code(s): 911891966 ICD Code: N28.9 - DISORDER OF KIDNEY AND URETER, UNSPECIFIED Status: Chronic Priority: Medium (9) Back pain SNOMED Code(s): 425526780 ICD Code: M54.9 - DORSALGIA, UNSPECIFIED Status: Chronic Qualifiers: Back pain location: low back pain Chronicity: chronic Back pain laterality: right Sciatica presence: without sciatica Qualified Code(s): M54.5 - Low back pain; G89.29 - Other chronic pain - Patient Summary/Data Operative Procedure(s) Performed: None Complications: None Consults: Consultations 10/16/16 12:26 Consult to Physician [CONS] Routine 10/16/16 12:41 Consult to Physical Therapy [PT Evaluation and Treatment] [CONS] Routine 10/16/16 13:21 Consult to Speech Language Pathology [DINING ROOM BUSSER Evaluation and Treatment] [CONS] Routine 10/16/16 14:00 Consult to Occupational Therapy [OT Evaluation and Treatment] [CONS] Routine Consult to Education Professional [CONS] Routine 10/20/16 16:00 Consult to Physician [CONS] Routine Labs Pending at D/C: None Recommended Follow-up Testing/Procedures: Follow up with PCP within 5-7 days of discharge Follow up with Line Producer as previously scheduled of Wednesday of week of discharge Planned Operative Procedure(s) after DC: None Hospital Course: As above - Patient Instructions Diet: Heart Healthy Diet, Low Sodium Fluid Restriction: 2000 mL Activity: As Tolerated (ambulate 3 times daily, continue with Physical Therapy, Occupational Therapy) Driving: Do Not Drive Showering/Bathing: May Shower Notify Provider of: Fever, Increased Pain, Nausea and/or Vomiting (chest pain, shortness of breath, worsening of weakness) - Discharge Plan Prescriptions/Med Rec: Carvedilol [Coreg] 3.125 mg PO BID #60 tablet Carvedilol [Coreg] 6.25 mg PO BID #60 tablet Isosorbide Mononitrate [Imdur] 60 mg PO ACBREAKFAST #30 tab.er Morphine [MS Contin] 15 mg PO BID #60 tab.er Potassium Chloride [Klor-Con M20] 20 meq PO BID #60 tab.er Tamsulosin [Flomax] 0.4 mg PO DAILY #30 cap.er Terazosin [Hytrin] 1 mg PO BEDTIME #30 cap fentaNYL [Duragesic] 12 mcg TRDERM Q72H #1 box Home Medications: Home Meds Polyethylene Glycol 3350 [MiraLAX] 17 gm PO ASDIRECTED PRN 07/06/15 [History] Nitroglycerin [Nitrostat] 0.4 mg SL Q5M PRN #25 tab.sl 07/09/16 [Rx] Rosuvastatin [Crestor] 5 mg PO ACBREAKFAST 10/17/16 [History] Bumetanide 1 mg PO BID #60 10/21/16 [Rx] Carvedilol [Coreg] 3.125 mg PO BID #60 tablet 10/21/16 [Rx] Carvedilol [Coreg] 6.25 mg PO BID #60 tablet 10/21/16 [Rx] Isosorbide Mononitrate [Imdur] 60 mg PO ACBREAKFAST #30 tab.er 10/21/16 [Rx] Morphine [MS Contin] 15 mg PO BID #60 tab.er 10/21/16 [Rx] Potassium Chloride [Klor-Con M20] 20 meq PO BID #60 tab.er 10/21/16 [Rx] Tamsulosin [Flomax] 0.4 mg PO DAILY #30 cap.er 10/21/16 [Rx] Terazosin [Hytrin] 1 mg PO BEDTIME #30 cap 10/21/16 [Rx] fentaNYL [Duragesic] 12 mcg TRDERM Q72H #1 box 10/21/16 [Rx] Patient Handouts: Aguilar Catheter Care, Adult, Leukocytosis, Nonspecific Chest Pain, [id number], Hypertension, [id number], Heart Failure, [id number], Managing Your High Blood Pressure Forms: ED Department Discharge Referrals: Josr Fisher MD [Ordering Only Provider] - 10/23/16 10:30 am ( appointment at [email or web address] in [place]) Glenn Oscar MD [Primary Care Provider] - 10/27/16 2:00 pm - Discharge Summary/Plan Comment DC Time >30 min.: Yes (40 min) - General Info Date of Service: 10/21/16 Admission Dx/Problem (Free Text: Admission Diagnosis/Problem Admission Diagnosis/Problem Leukocytosis LLL PNA Splenic infarct CHF Functional Status: Reports: pain controlled, tolerating diet, ambulating, urinating. Denies: new symptoms - Review of Systems General: Reports: Weakness HEENT: Reports: no symptoms Pulmonary: Reports: no symptoms Cardiovascular: Reports: No Symptoms Gastrointestinal: Reports: No symptoms Genitourinary: Reports: no symptoms Musculoskeletal: Reports: other (chronic back and joint pains) Skin: Reports: no symptoms Neurological: Reports: No Symptoms Psychiatric: Reports: no symptoms - Patient Data Vitals - Most Recent: Last Vital Signs Temp 98.1 F 10/21/16 11:35 Pulse 64 10/21/16 11:35 Resp 16 10/21/16 11:35 BP 100/65 10/21/16 11:35 Pulse Ox 92 L 10/21/16 11:35 Weight - Most Recent: 186 lb 4.8 oz I&O - Last 24 hours: Intake & Output 10/20/16 10/21/16 10/21/16 22:59 06:59 14:59 Intake Total 1350 500 170 Output Total 650 375 Balance 700 125 170 Lab Results - Last 24 hrs: Laboratory Results - last 24 hr 10/20/16 10/20/16 10/21/16 Range/Units 14:29 18:25 06:53 WBC 7.30 (4.23-9.07) K/mm3 RBC 4.44 L (4.63-6.08) M/mm3 Hgb 8.7 L (13.7-17.5) gm/L Hct 29.7 L (40.1-51.0) % MCV 66.9 L (79.0-92.2) fl MCH 19.6 L (25.7-32.2) pg MCHC 29.3 L (32.2-35.5) g/dl RDW Std Deviation 45.6 H (35.1-43.9) fL Plt Count 207 (163-337) K/mm3 MPV 9.6 (9.4-12.3) fl Neut % (Auto) 75.5 H (34.0-67.9) % Lymph % (Auto) 10.5 L (21.8-53.1) % Phillips % (Auto) 12.1 (5.3-12.2) % Eos % (Auto) 1.5 (0.8-7.0) Baso % (Auto) 0.3 (0.1-1.2) % Neut # (Auto) 5.51 H (1.78-5.38) K/mm3 Lymph # (Auto) 0.77 L (1.32-3.57) K/mm3 Phillips # (Auto) 0.88 H (0.30-0.82) K/mm3 Eos # (Auto) 0.11 (0.04-0.54) K/mm3 Baso # (Auto) 0.02 (0.01-0.08) K/mm3 Manual Slide Review Abnormal smear PT 14.0 H (8.0-13.0) SECONDS INR 1.27 APTT 43 H (22-36) SECONDS Sodium (136-145) mEq/L Potassium (3.5-5.1) mEq/L Chloride (98-107) mEq/L Carbon Dioxide (21-32) mEq/L Anion Gap (5-15) BUN (7-18) mg/dL Creatinine (0.7-1.3) mg/dL Est Cr Clr Drug Dosing mL/min Estimated GFR (MDRD) (>60) mL/min BUN/Creatinine Ratio (14-18) Glucose (83-115) mg/dL Calcium (8.5-10.1) mg/dL Magnesium (1.8-2.4) mg/dl C-Reactive Protein (<1.0) mg/dL Body Fluid Site Abdominal fluid Fluid Type Oth Fluid Volume 710 ML Fluid Color Amelia Fluid Appearance Cloudy Fluid WBC 3.22 H (0.20-0.60) k/mm*3 Fluid RBC 0.013 H (0.00-0.010) 10*6/uL Fluid Diff Comment Fluid Seg Neutrophils 72.0 H (0-25) % Fluid Lymphocytes 8.0 (0-78) % Fluid Monocytes 7.0 (0-71) % Fl Polymorphonucl Cell Not Reportable Fluid Macrophages 7 Fluid Glucose 122 mg/dL Fluid Total Protein 4.0 gm/dl Fluid LDH 237 U/L Fluid Amylase 10 U/L 10/21/16 Range/Units 06:53 WBC (4.23-9.07) K/mm3 RBC (4.63-6.08) M/mm3 Hgb (13.7-17.5) gm/L Hct (40.1-51.0) % MCV (79.0-92.2) fl MCH (25.7-32.2) pg MCHC (32.2-35.5) g/dl RDW Std Deviation (35.1-43.9) fL Plt Count (163-337) K/mm3 MPV (9.4-12.3) fl Neut % (Auto) (34.0-67.9) % Lymph % (Auto) (21.8-53.1) % Phillips % (Auto) (5.3-12.2) % Eos % (Auto) (0.8-7.0) Baso % (Auto) (0.1-1.2) % Neut # (Auto) (1.78-5.38) K/mm3 Lymph # (Auto) (1.32-3.57) K/mm3 Phillips # (Auto) (0.30-0.82) K/mm3 Eos # (Auto) (0.04-0.54) K/mm3 Baso # (Auto) (0.01-0.08) K/mm3 Manual Slide Review PT (8.0-13.0) SECONDS INR APTT (22-36) SECONDS Sodium 137 (136-145) mEq/L Potassium 3.8 (3.5-5.1) mEq/L Chloride 101 (98-107) mEq/L Carbon Dioxide 26 (21-32) mEq/L Anion Gap 13.8 (5-15) BUN 37 H (7-18) mg/dL Creatinine 2.2 H (0.7-1.3) mg/dL Est Cr Clr Drug Dosing 21.74 mL/min Estimated GFR (MDRD) 29 (>60) mL/min BUN/Creatinine Ratio 16.8 (14-18) Glucose 95 (83-115) mg/dL Calcium 8.4 L (8.5-10.1) mg/dL Magnesium 2.3 (1.8-2.4) mg/dl C-Reactive Protein 6.7 H* (<1.0) mg/dL Body Fluid Site Fluid Type Fluid Volume ML Fluid Color Fluid Appearance Fluid WBC (0.20-0.60) k/mm*3 Fluid RBC (0.00-0.010) 10*6/uL Fluid Diff Comment Fluid Seg Neutrophils (0-25) % Fluid Lymphocytes (0-78) % Fluid Monocytes (0-71) % Fl Polymorphonucl Cell Fluid Macrophages Fluid Glucose mg/dL Fluid Total Protein gm/dl Fluid LDH U/L Fluid Amylase U/L DANAY Results - Last 24 hrs: Microbiology 10/17/16 00:40 Streptococcus pneumoniae Antigen (M - Final Urine Med Orders - Current: Current Medications Hydrocodone Bitart/Acetaminophen ([place] 325-5 Mg) 1 tab PO Q6H PRN PRN Reason: Pain (moderate 4-6) Last Admin: 10/21/16 04:23 Dose: 1 tab Aspirin (Aspirin) 81 mg PO BEDTIME JAIRO Last Admin: 10/20/16 20:24 Dose: 81 mg Belladonna Alkaloids/Opium (B & O Supprettes No. 15a) 1 supp RECTAL Q6H PRN PRN Reason: bladder pain/spasm Bisacodyl (Dulcolax) 10 mg RECTAL DAILY PRN PRN Reason: Constipation Last Admin: 10/17/16 03:47 Dose: 10 mg Bumetanide (Bumex) 2 mg PO DAILY [facility] [place] Last Admin: 10/21/16 09:46 Dose: 2 mg Carvedilol (Coreg) 3.125 mg PO BID [facility] [place] Last Admin: 10/21/16 09:55 Dose: Not Given Carvedilol (Coreg) 6.25 mg PO BID [facility] [place] Last Admin: 10/21/16 09:52 Dose: Not Given Enoxaparin Sodium (Lovenox) 30 mg SUBCUT DAILY [facility] [place] Last Admin: 10/21/16 09:52 Dose: 30 mg Fentanyl (Duragesic) 12 mcg TRDERM Q72H [facility] [place] Last Admin: 10/20/16 10:00 Dose: 12 mcg Hydromorphone HCl (Dilaudid) 0.5 mg IVPUSH Q2H PRN PRN Reason: Pain Last Admin: 10/19/16 16:25 Dose: 0.5 mg Sodium Chloride (Normal Saline) 500 mls @ 999 mls/hr IV ASDIRECTED PRN PRN Reason: Hypotension Last Admin: 10/16/16 08:05 Dose: 999 mls/hr Piperacillin Sod/Tazobactam (Sod 4.5 gm/ Sodium Chloride) 100 mls @ 25 mls/hr IV Q8H [facility] [place] Last Admin: 10/21/16 11:19 Dose: 25 mls/hr Levofloxacin/Dextrose 750 mg/ (Premix) 150 mls @ 100 mls/hr IV Q48H [facility] [place] Last Admin: 10/20/16 06:28 Dose: 100 mls/hr Isosorbide Mononitrate (Imdur) 60 mg PO ACBREAKFAST [facility] [place] Last Admin: 10/21/16 06:25 Dose: 60 mg Levalbuterol HCl (Xopenex) 1.25 mg NEB QID PRN PRN Reason: Shortness of Breath Miscellaneous Information (Remove Patch) 1 ea TRDERM Q72H [facility] [place] Last Admin: 10/20/16 10:03 Dose: 1 ea Morphine Sulfate (Morphine) 1 mg IVPUSH Q2H PRN PRN Reason: Pain Last Admin: 10/19/16 03:57 Dose: 1 mg Morphine Sulfate (Ms Contin) 15 mg PO BID [facility] [place] Last Admin: 10/21/16 09:48 Dose: 15 mg Nitroglycerin (Nitrostat) 0.4 mg SL Q5M PRN PRN Reason: Chest Pain Last Admin: 10/19/16 08:17 Dose: 0.4 mg Ondansetron HCl (Zofran) 4 mg IVPUSH Q8H PRN PRN Reason: Nausea/Vomiting Last Admin: 10/19/16 14:52 Dose: 4 mg Polyethylene Glycol (Miralax) 17 gm PO ASDIRECTED PRN PRN Reason: Constipation Last Admin: 10/17/16 01:12 Dose: 17 gm Potassium Chloride (Klor-Con M20) 20 meq PO BID [facility] [place] Last Admin: 10/21/16 09:47 Dose: 20 meq Rosuvastatin Calcium (Crestor) 5 mg PO ACBREAKFAST [facility] [place] Last Admin: 10/21/16 06:26 Dose: 5 mg Sodium Chloride (Saline Flush) 10 ml FLUSH ASDIRECTED PRN PRN Reason: Keep Vein Open Tamsulosin HCl (Flomax) 0.4 mg PO DAILY [facility] [place] Last Admin: 10/21/16 09:47 Dose: 0.4 mg Terazosin HCl (Hytrin) 1 mg PO BEDTIME [facility] [place] Last Admin: 10/20/16 20:25 Dose: 1 mg Discontinued Medications Bumetanide (Bumex) 1 mg IVPUSH ONETIME ONE Stop: 10/17/16 16:12 Last Admin: 10/17/16 17:41 Dose: 1 mg Bumetanide (Bumex) 1 mg IVPUSH ONETIME ONE Stop: 10/18/16 14:55 Last Admin: 10/18/16 15:52 Dose: Not Given Bumetanide (Bumex) 0.5 mg IVPUSH ONETIME ONE Stop: 10/20/16 07:44 Last Admin: 10/20/16 09:17 Dose: 0.5 mg Carvedilol (Coreg) 6.25 mg PO BID [facility] [place] Last Admin: 10/19/16 08:04 Dose: 6.25 mg Diatrizoate Meglum/Diatrizoate Sod (Gastrografin 37%) 90 ml PO ONETIME ONE Stop: 10/16/16 04:16 Last Admin: 10/16/16 04:38 Dose: 90 ml Diphtheria/Tetanus/Acell Pertussis (Boostrix) 0.5 ml IM .ONCE ONE Stop: 10/18/16 11:58 Furosemide (Lasix) 20 mg IVPUSH NOW ONE Stop: 10/16/16 13:15 Last Admin: 10/16/16 13:37 Dose: 20 mg Hydromorphone HCl (Dilaudid) 0.5 mg IVPUSH ONETIME ONE Stop: 10/16/16 02:23 Last Admin: 10/16/16 02:29 Dose: 0.5 mg Hydromorphone HCl (Dilaudid) 1 mg IVPUSH ONETIME ONE Stop: 10/16/16 08:09 Last Admin: 10/16/16 08:14 Dose: 1 mg Hydromorphone HCl (Dilaudid) Confirm Administered Dose 1 mg .ROUTE .STK-MED ONE Stop: 10/16/16 08:11 Last Admin: 10/16/16 08:17 Dose: Not Given Hydromorphone HCl (Dilaudid) 1 mg IVPUSH Q3H PRN PRN Reason: Pain Hydromorphone HCl (Dilaudid) 0.5 mg IVPUSH Q4H PRN PRN Reason: Pain Last Admin: 10/17/16 10:38 Dose: 0.5 mg Sodium Chloride (Normal Saline) 1,000 mls @ 125 mls/hr IV ASDIRECTED [facility] [place] Last Admin: 10/16/16 03:19 Dose: 125 mls/hr Sodium Chloride (Normal Saline) 100 mls @ 60 mls/hr IV ASDIRECTED [facility] [place] Last Admin: 10/16/16 04:41 Dose: 60 mls/hr Levofloxacin/Dextrose 750 mg/ (Premix) 150 mls @ 100 mls/hr IV ONETIME ONE Stop: 10/16/16 07:01 Last Admin: 10/16/16 05:41 Dose: 100 mls/hr Piperacillin Sod/Tazobactam (Sod 4.5 gm/ Sodium Chloride) 100 mls @ 200 mls/hr IV ONETIME ONE Stop: 10/16/16 06:27 Last Admin: 10/16/16 11:11 Dose: Not Given Sodium Chloride (Normal Saline) 1,000 mls @ 150 mls/hr IV ASDIRECTED PRN PRN Reason: Hypotension Piperacillin Sod/Tazobactam (Sod 4.5 gm/ Sodium Chloride) 100 mls @ 200 mls/hr IV ONETIME ONE Stop: 10/16/16 11:29 Last Admin: 10/16/16 11:05 Dose: 200 mls/hr Sodium Chloride (Normal Saline) 1,000 mls @ 70 mls/hr IV ASDIRECTED PRN PRN Reason: Hypotension Last Admin: 10/16/16 12:58 Dose: 70 mls/hr Levofloxacin/Dextrose 750 mg/ (Premix) 150 mls @ 100 mls/hr IV Q48H [facility] [place] Last Admin: 10/16/16 13:36 Dose: 100 mls/hr Piperacillin Sod/Tazobactam (Sod 4.5 gm/ Sodium Chloride) 100 mls @ 25 mls/hr IV Q8H [facility] [place] Last Admin: 10/16/16 13:42 Dose: Not Given Sodium Chloride (Normal Saline) 100 mls @ 65 mls/hr IV ASDIRECTED [facility] [place] Last Admin: 10/18/16 10:53 Dose: 65 mls/hr Sodium Chloride (Normal Saline) 1,000 mls @ 50 mls/hr IV ASDIRECTED [facility] [place] Last Admin: 10/20/16 10:08 Dose: 50 mls/hr Iopamidol (Isovue-370 (76%)) 100 ml IVPUSH ONETIME ONE Stop: 10/16/16 04:16 Last Admin: 10/16/16 04:39 Dose: 100 ml Iopamidol (Isovue-370 (76%)) 100 ml IVPUSH ONETIME ONE Stop: 10/18/16 09:58 Last Admin: 10/18/16 10:49 Dose: 100 ml Iopamidol (Isovue-370 (76%)) 50 ml IVPUSH ONETIME ONE Stop: 10/18/16 09:58 Last Admin: 10/18/16 10:49 Dose: 50 ml Isosorbide Mononitrate (Imdur) 30 mg PO ACBREAKFAST [facility] [place] Last Admin: 10/18/16 07:28 Dose: 30 mg Morphine Sulfate (Morphine) Confirm Administered Dose 2 mg .ROUTE .STK-MED ONE Stop: 10/16/16 07:46 Last Admin: 10/16/16 08:18 Dose: Not Given Morphine Sulfate (Morphine) 1 mg IVPUSH Q2H PRN PRN Reason: Chest Pain Nitroglycerin (Nitrostat) 0.4 mg SL Q5M PRN PRN Reason: Chest Pain Nitroglycerin (Nitrostat) 0.4 mg SL Q5M PRN PRN Reason: Chest Pain Pneumococcal Polyvalent Vaccine (Pneumovax 23) 0.5 ml IM .ONCE ONE Stop: 10/18/16 12:00 Potassium Chloride (Potassium Chloride) 40 meq PO ONETIME ONE Stop: 10/20/16 10:30 Last Admin: 10/20/16 11:04 Dose: 40 meq Sodium Chloride (Saline Flush) 10 ml FLUSH ASDIRECTED PRN PRN Reason: Keep Vein Open Last Admin: 10/16/16 02:29 Dose: 10 ml Sodium Chloride (Saline Flush) 10 ml FLUSH ONETIME ONE Stop: 10/16/16 04:16 Last Admin: 10/16/16 04:41 Dose: 10 ml Sodium Chloride (Saline Flush) 10 ml FLUSH ONETIME PRN PRN Reason: IV FLUSH Last Admin: 10/18/16 10:49 Dose: 10 ml - Exam Quality Assessment: Reports: DVT prophylaxis General: Reports: alert, oriented, cooperative, no acute distress HEENT: Reports: Pupils equal, Pupils reactive, EOMI, Mucous membr. moist/pink Neck: Reports: supple Lungs: Reports: Crackles (lt > rt to bases bilat) Abdomen: Reports: soft (but still mildly distended), organomegaly (Lt upper quad - spleenomegaly) (Male) Exam: Deferred Rectal (Males) Exam: Deferred Extremities: Reports: edema (trace to LE) Skin: Reports: warm, dry Neurological: Reports: no new focal deficit Psy/Mental Status: Reports: alert, normal affect, normal mood *Q Meaningful Use (DIS) - VTE *Q VTE Criteria *Q: - Stroke *Q Stroke Criteria *Q: - AMI *Q AMI Criteria *Q:
--- NOTE | 2016-10-21 13:54 | PCM.SN ---
- Free Text/Narrative Note: Patient is getting prepared for discharge with and son in room. Nurse reviewing all of paperwork. Patient is adamantly refusing to go home with aguilar catheter. States "I just want to go home without this thing", "just take it out and let me go home". I review with patient, and son risks of removing aguilar catheter. He has had urinary retention multiple times during his hospital stay. Bladder scan protocol was followed yesterday and last evening, leading to insertion of aguilar catheter. Plan was for patient to be dc'd with aguilar, follow up with PCP within 5-7 days and with Urology in 2-4 weeks- appt was scheduled with Urology. Patient refuses. Again review risks of urinary retention, including sepsis and . He states he understanding as do and son. Reviewed s/s to watch for, abdominal/suprapubic pain, distention, SOB, chest pain, fever, general discomfort/pain. If he has not voided by 10pm this evening he will need to return to ED for evaluation and likely repeat catheterization. They all voice understanding of risks. Aguilar will be dc'd and patient will be dc 'd home with f/up with Dr. Oscar in 5-7 days. He is on flomax and hytrin for urinary retention now.
== END 2016-10-21 14:15 | disposition home or self-care (01) | DRG 814 ==
LOC: JD.ED 01:59 → JD.MS 05:58 → UNDOADMIN 05:58 → JD.ICU 05:58 → UNDOADMIN 08:17 → JD.ICU 09:00 → JD.MS 09:00 → JD.ICU 13:15 → JD.MS 13:17 → JD.ICU 13:17 → JD.MS 10-18 11:47 → JD.ICU 10-18 11:47 → UNDODISIN 10-21 14:15
PROVIDERS: ADMIT Internal Medicine Cardiovascular Disease; ATTEND Internal Medicine Cardiovascular Disease
PROC: 0W9G3ZX Drainage of Peritoneal Cavity, Percutaneous Approach, Diagnostic (ICD-10-PCS; principal; 2016-10-20)
DX: D72.829 Elevated white blood cell count, unspecified (principal); R07.9 Chest pain, unspecified; J18.9 Pneumonia, unspecified organism; R18.8 Other ascites; I13.0 Hypertensive heart and chronic kidney disease with heart failure and stage 1 through stage 4 chronic kidney disease, or unspecified chronic kidney disease; M54.5 Low back pain; J90 Pleural effusion, not elsewhere classified; N28.9 Disorder of kidney and ureter, unspecified; I50.40 Unspecified combined systolic (congestive) and diastolic (congestive) heart failure; M54.9 Dorsalgia, unspecified; D73.5 Infarction of spleen; I11.0 Hypertensive heart disease with heart failure; I25.10 Atherosclerotic heart disease of native coronary artery without angina pectoris; N18.9 Chronic kidney disease, unspecified; R07.89 Other chest pain; Z87.891 Personal history of nicotine dependence; R74.8 Abnormal levels of other serum enzymes; E78.00 Pure hypercholesterolemia, unspecified; I25.2 Old myocardial infarction; Z95.0 Presence of cardiac pacemaker; I48.91 Unspecified atrial fibrillation; G89.29 Other chronic pain; D64.9 Anemia, unspecified; H91.90 Unspecified hearing loss, unspecified ear; Z79.82 Long term (current) use of aspirin; Z79.899 Other long term (current) drug therapy; Z88.1 Allergy status to other antibiotic agents; I25.5 Ischemic cardiomyopathy; Z66 Do not resuscitate
CPT/HCPCS: 36415; 71010; 74177; 80053; 81001; 82553; 83605; 83690; 83880; 84484 ×2; 85025 ×2; 87040 ×2; 93005 ×2; 93306; 93971; 96361; 96365; 96375; 99285; J1170 ×2; J1956; J2270; J7030; J7040 ×2; J7050 ×2; P9612; Q9963; Q9967; 71020; 71020-26; 71275; 71275-26; 76705; 76705-26; 80048; 82042; 82150; 82247; 82945; 83615; 83735; 84157; 84478; 85610; 85730; 86140; 86738; 87070; 87205; 87804; 87899; 88112; 88305; 89050; 92610-GN; 94760; 94761; 97110-GO; 97110-GP; 97116-GP; 97163-GP; 97165-GO; 97530-GO; 97530-GP; 97535-GO; A9270-GY; J1650; J1940; J2405; J2543

== ENCOUNTER 2017-05-23 03:21 | Emergency (ER) | payer OTHER, MEDICARE, BC ==
[2017-05-23 03:32] VITALS: BP 127/86
[2017-05-23] MEDS ORDERED: Morphine 2 MG/ML Syringe IVPUSH ONE ×2 (03:52→04:28)
[2017-05-23] MEDS ORDERED: Ondansetron 4 MG/2 ML SDV IVPUSH ONE (03:52)
--- NOTE | 2017-05-23 03:54 | EDM.PDOC ---
ED HPI GENERAL MEDICAL PROBLEM - General Chief Complaint: Abdominal Pain Stated Complaint: RIGHT SIDE PAIN Time Seen by Provider: 05/23/17 03:30 Source of Information: Reports: Patient, Family History Limitations: Reports: No Limitations - History of Present Illness INITIAL COMMENTS - FREE TEXT/NARRATIVE: This is an 87-year-old male. Around midnight this evening he awoke with right upper quadrant abdominal pain that radiates around to his back. It would not ease up and so he comes to the ER for evaluation. He apparently had deep-fried turkey for dinner this evening as well as mash potatoes area and he denies any nausea and vomiting since this pain started. He still has his gallbladder. There's been no fever no chills he's got no cough. Deep breathing seems to make the pain worse. He denies any other acute symptoms at this time. Right Anterior Abdomen Pain Score (Numeric/FACES): 8 - Related Data Allergies Allergy/AdvReac Type Severity Reaction Status Date / Time cephalexin [Cephalexin] Allergy Unknown Unknown Verified 05/23/17 03:28 Home Meds: Home Meds Polyethylene Glycol 3350 [MiraLAX] 17 gm PO ASDIRECTED PRN 07/06/15 [History] Nitroglycerin [Nitrostat] 0.4 mg SL Q5M PRN #25 tab.sl 07/09/16 [Rx] Rosuvastatin [Crestor] 5 mg PO ACBREAKFAST 10/17/16 [History] Bumetanide 1 mg PO BID #60 10/21/16 [Rx] Carvedilol [Coreg] 3.125 mg PO BID #60 tablet 10/21/16 [Rx] Carvedilol [Coreg] 6.25 mg PO BID #60 tablet 10/21/16 [Rx] Isosorbide Mononitrate [Imdur] 60 mg PO ACBREAKFAST #30 tab.er 10/21/16 [Rx] Morphine [MS Contin] 15 mg PO BID #60 tab.er 10/21/16 [Rx] Potassium Chloride [Klor-Con M20] 20 meq PO BID #60 tab.er 10/21/16 [Rx] Tamsulosin [Flomax] 0.4 mg PO DAILY #30 cap.er 10/21/16 [Rx] Terazosin [Hytrin] 1 mg PO BEDTIME #30 cap 10/21/16 [Rx] fentaNYL [Duragesic] 12 mcg TRDERM Q72H #1 box 10/21/16 [Rx] Past Medical History HEENT History: Reports: Cataract, Hard of Hearing, Impaired Vision Other HEENT History: Wears glasses Cardiovascular History: Reports: CAD, Heart Failure, High Cholesterol, Hypertension, [place], Pacemaker, SOB on Exertion Respiratory History: Reports: SOB Gastrointestinal History: Reports: GI Bleed Genitourinary History: Reports: Retention, Urinary Musculoskeletal History: Reports: Back Pain, Chronic Neurological History: Reports: Headaches, Chronic Psychiatric History: Reports: None Endocrine/Metabolic History: Reports: None Hematologic History: Reports: Anemia, Blood Transfusion(s) Immunologic History: Reports: None Oncologic (Cancer) History: Reports: None Dermatologic History: Reports: None - Infectious Disease History Infectious Disease History: Reports: Chicken Pox, Measles, Mumps, Shingles - Past Surgical History HEENT Surgical History: Reports: Cataract Surgery Social & Family History - Family History Family Medical History: Noncontributory - Tobacco Use Smoking Status *Q: Never Smoker Years of Tobacco use: 30 Packs/Tins Daily: 1 Used Tobacco, but Quit: Yes Month Tobacco Last Used: 45 yrs Second Hand Smoke Exposure: No - Caffeine Use Caffeine Use: Reports: None - Alcohol Use Days Per Week of Alcohol Use: 0 Number of Drinks Per Day: 1 Total Drinks Per Week: 0 - Recreational Drug Use Recreational Drug Use: No - Living Situation & Occupation Living situation: Reports: Occupation: Retired ED ROS GENERAL - Review of Systems Review Of Systems: See Below Constitutional: Denies: Fever, Chills HEENT: Reports: No Symptoms Respiratory: Reports: Shortness of Breath Cardiovascular: Denies: Chest Pain Endocrine: Reports: No Symptoms GI/Abdominal: Reports: Abdominal Pain. Denies: Diarrhea, Nausea, Vomiting : Reports: No Symptoms Musculoskeletal: Reports: Other (Arthritic type musculoskeletal symptoms) Skin: Reports: No Symptoms Neurological: Reports: No Symptoms Psychiatric: Reports: Agitation Hematologic/Lymphatic: Reports: No Symptoms ED EXAM, GI/ABD - Physical Exam Exam: See Below Exam Limited By: No Limitations General Appearance: Alert, Anxious, Mild Distress Eyes: Bilateral: Normal Appearance Ears: Normal External Exam Nose: Normal Inspection Throat/Mouth: Normal Inspection, Normal Lips, Normal Voice, No Airway Compromise Head: Normocephalic Neck: Supple Respiratory/Chest: No Respiratory Distress, Lungs Clear, Normal Breath Sounds Cardiovascular: Regular Rate, Rhythm, No Murmur GI/Abdominal Exam: Other (He is very tender in the right upper quadrant with positive Natarajan's, his lower abdomen is nontender McBurney's point is nontender the left side of his abdomen is nontender on palpation, he is sort of sitting in a stooped position and it makes his belly protuberant but he states this is the way it always is, bowel sounds are present but decreased) Back Exam: Other (Stooped appearance with limited range of motion of his back due to arthritis, the patient uses a walker) Extremities: Normal Inspection, Other (Patient requires a walker to get around) Neurological: Alert, Oriented Psychiatric: Anxious Skin Exam: Warm, Dry Course - Vital Signs Last Recorded V/S: Last Vital Signs Temp 97.6 F 05/23/17 03:28 Pulse 68 05/23/17 03:28 Resp 18 05/23/17 03:28 BP 127/86 05/23/17 03:28 Pulse Ox 97 05/23/17 03:28 - Orders/Labs/Meds Orders: Active Orders 24 hr Category Date Time Status Abdomen Ltd [US] Stat Exams 05/23/17 03:53 Taken Chest 2V [CR] Stat Exams 05/23/17 03:52 Taken Sodium Chloride 0.9% [Normal Saline] 1,000 ml Med 05/23/17 04:00 Active IV ASDIRECTED Medication Orders Sodium Chloride (Normal Saline) 1,000 mls @ 30 mls/hr IV ASDIRECTED JAIRO Last Admin: 05/23/17 03:58 Dose: 30 mls/hr Labs: Laboratory Tests 05/23/17 05/23/17 Range/Units 03:56 03:56 WBC 5.09 (4.23-9.07) K/mm3 RBC 4.90 (4.63-6.08) M/mm3 Hgb 11.0 L (13.7-17.5) gm/L Hct 35.0 L (40.1-51.0) % MCV 71.4 L (79.0-92.2) fl MCH 22.4 L (25.7-32.2) pg MCHC 31.4 L (32.2-35.5) g/dl RDW Std Deviation 48.9 H (35.1-43.9) fL Plt Count 233 (163-337) K/mm3 MPV 9.0 L (9.4-12.3) fl Neut % (Auto) 69.9 H (34.0-67.9) % Lymph % (Auto) 17.7 L (21.8-53.1) % [place] % (Auto) 8.8 (5.3-12.2) % Eos % (Auto) 2.8 (0.8-7.0) Baso % (Auto) 0.6 (0.1-1.2) % Neut # (Auto) 3.56 (1.78-5.38) K/mm3 Lymph # (Auto) 0.90 L (1.32-3.57) K/mm3 [place] # (Auto) 0.45 (0.30-0.82) K/mm3 Eos # (Auto) 0.14 (0.04-0.54) K/mm3 Baso # (Auto) 0.03 (0.01-0.08) K/mm3 Manual Slide Review Abnormal smear Sodium 141 (136-145) mEq/L Potassium 3.3 L (3.5-5.1) mEq/L Chloride 102 (98-107) mEq/L Carbon Dioxide 28 (21-32) mEq/L Anion Gap 14.3 (5-15) BUN 29 H (7-18) mg/dL Creatinine 1.3 (0.7-1.3) mg/dL Est Cr Clr Drug Dosing 42.90 mL/min Estimated GFR (MDRD) 52 (>60) mL/min BUN/Creatinine Ratio 22.3 H (14-18) Glucose 110 (83-115) mg/dL Calcium 9.1 (8.5-10.1) mg/dL Total Bilirubin 2.0 H (0.2-1.0) mg/dL AST 14 L (15-37) U/L ALT 10 L (16-63) U/L Alkaline Phosphatase 60 (46-116) U/L Total Protein 7.6 (6.4-8.2) g/dl Albumin 3.3 L (3.4-5.0) g/dl Globulin 4.3 gm/dL Albumin/Globulin Ratio 0.8 L (1-2) Lipase 69 L (73-393) U/L Meds: Medications Generic Name Dose Route Start Last Admin Trade Name Roni PRN Reason Stop Dose Admin Sodium Chloride 1,000 mls @ 30 mls/hr 05/23/17 04:00 05/23/17 03:58 Normal Saline IV 30 mls/hr ASDIRECTED JAIRO Administration Discontinued Medications Generic Name Dose Route Start Last Admin Trade Name Roni PRN Reason Stop Dose Admin Hydromorphone HCl 0.5 mg 05/23/17 05:11 05/23/17 05:15 Dilaudid IVPUSH 05/23/17 05:12 0.5 mg ONETIME ONE Administration Morphine Sulfate 1 mg 05/23/17 03:52 05/23/17 03:59 Morphine IVPUSH 05/23/17 03:53 1 mg ONETIME ONE Administration Morphine Sulfate 2 mg 05/23/17 04:28 05/23/17 04:32 Morphine IVPUSH 05/23/17 04:29 2 mg ONETIME ONE Administration Ondansetron HCl 4 mg 05/23/17 03:52 05/23/17 03:57 Zofran IVPUSH 05/23/17 03:53 4 mg ONETIME ONE Administration - Re-Assessments/Exams Free Text/Narrative Re-Assessment/Exam: 05/23/17 05:57 I spoke to the patient and his regarding the gallstones. Since his liver enzymes amylase and white blood count are normal he'll need to follow-up with his family doctor for further evaluation and treatment. 05/23/17 06:00 Patient is pain free at this time upon discharge. Departure - Departure Time of Disposition: 05:58 Disposition: Home, Self-Care 01 Condition: Fair Clinical Impression: Right upper quadrant abdominal pain Cholelithiasis Qualifiers: Cholelithiasis location: gallbladder Cholecystitis presence: without cholecystitis Biliary obstruction: without biliary obstruction Qualified Code(s) : K80.20 - Calculus of gallbladder without cholecystitis without obstruction - Discharge Information Referrals: Glenn Oscar MD [Primary Care Provider] - Forms: ED Department Discharge Additional Instructions: You need to avoid all foods that are oily greasy or deep-fried, if you start having right upper quadrant abdominal pain again follow up with your family doctor or return to the ER, make certain you make contact with your family doctor this week about your gallstones even though I will send him your chart from the ER so he will know that you have gallstones - My Orders Last 24 Hours: My Active Orders 05/23/17 03:52 Chest 2V [CR] Stat 05/23/17 03:53 Abdomen Ltd [US] Stat 05/23/17 04:00 Sodium Chloride 0.9% [Normal Saline] 1,000 ml IV ASDIRECTED - Assessment/Plan Last 24 Hours: My Active Orders 05/23/17 03:52 Chest 2V [CR] Stat 05/23/17 03:53 Abdomen Ltd [US] Stat 05/23/17 04:00 Sodium Chloride 0.9% [Normal Saline] 1,000 ml IV ASDIRECTED
[2017-05-23] MEDS ORDERED: Sodium Chloride 0.9% 1,000 ML IV SCH (04:00)
[2017-05-23] MEDS ORDERED: HYDROmorphone 0.5 MG/0.5 ML Syringe IVPUSH ONE (05:11)
--- NOTE | 2017-05-23 09:54 | US ---
Limited right upper quadrant abdominal ultrasound: Multiple real-time images were obtained of the right upper abdomen. Comparison: Previous limited abdominal ultrasound of 10/20/16. Technologist' s note: Difficult patient, unable to hold breath or tolerate much transducer pressure Ascites is identified within the abdomen. Ascites not as prominent as on prior exam. Several gallstones are seen within the gallbladder. Gallbladder wall is mildly thickened which could be because of gallbladder disease as well as from ascites. Common bile duct mildly dilated up to 1.0 cm. Multiple cysts are seen within the right kidney. Impression: 1. Gallstones with mildly prominent common bile duct at 1 cm. 2. Gallbladder wall is thickened which can be caused by gallbladder disease as well as ascites. 3. Multiple cysts are seen within the right kidney. Diagnostic code #3 I agree with preliminary report issued by [id number] ([facility] report finalized on 05/23/17, 6:49 AM Central Time)
--- NOTE | 2017-05-23 09:54 | CR ---
Chest: Two views of the chest were obtained. Comparison: Prior chest x-ray of 10/19/16. Pleural thickening seen along the left lateral chest believed to be stable from previous study when allowing for differences in positioning. Central lung markings are slightly increased. Heart is mildly enlarged. Tortuous thoracic aorta is noted. Pacemaker is present. 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 Scoliosis noted within the spine. Osteopenia is noted. Impression: 1. Pleural thickening along the left lateral chest most likely representing chronic loculated pleural effusion. This is similar to prior chest x-ray when allowing for slight differences in positioning. 2. Mild cardiomegaly. Central lung markings are mildly increased most likely due to mild pulmonary vascular congestion. 3. Other incidental findings. Diagnostic code #3
== END 2017-05-23 06:36 | disposition home or self-care (01) ==
LOC: JD.ED 03:21
DX: K80.20 Calculus of gallbladder without cholecystitis without obstruction (principal); Z88.1 Allergy status to other antibiotic agents; Z79.899 Other long term (current) drug therapy; Z87.891 Personal history of nicotine dependence
CPT/HCPCS: 36415; 71020; 76705; 80053; 83690; 85025; 96361; 96374; 96375; 96376; 99284; J1170; J2270; J2405; J7040

== ENCOUNTER 2017-09-12 23:55 | Emergency (ER) | payer OTHER, MEDICARE, BC ==
[2017-09-13 00:06] VITALS: BP 124/83
--- NOTE | 2017-09-13 00:32 | EDM.PDOC ---
ED HPI GENERAL MEDICAL PROBLEM - General Chief Complaint: Gastrointestinal Problem Stated Complaint: constipation Time Seen by Provider: 09/13/17 00:11 Source of Information: Reports: Patient, Family () History Limitations: Reports: Other (Both the patient and his appear to have very poor understanding of medical issues. Both are poor historians.) - History of Present Illness INITIAL COMMENTS - FREE TEXT/NARRATIVE: The patient states that he has been constipated since yesterday. By constipated , he means that he has had lower abdominal pressure and rectal urgency. The patient's states that he took 2 suppositories without relief, but the patient's does not know what was in the suppositories - whether they were glycerin or Tylenol, etc. She states that she has given homemade soap enemas in the past, but not this time. The patient has a history of constipation, likely related to use of chronic pain medications including Duragesic patch and MS Contin. The patient has a history of BPH, but reports that his urination has been normal. The patient's PCP is Dr. Oscar. Lower Abdomen Pain Score (Numeric/FACES): 3 - Related Data Allergies Allergy/AdvReac Type Severity Reaction Status Date / Time cephalexin [Cephalexin] Allergy Unknown Unknown Verified 09/13/17 00:06 Home Meds: Home Meds Polyethylene Glycol 3350 [MiraLAX] 17 gm PO ASDIRECTED PRN 07/06/15 [History] Nitroglycerin [Nitrostat] 0.4 mg SL Q5M PRN #25 tab.sl 07/09/16 [Rx] Rosuvastatin [Crestor] 5 mg PO ACBREAKFAST 10/17/16 [History] Bumetanide 1 mg PO BID #60 10/21/16 [Rx] Carvedilol [Coreg] 3.125 mg PO BID #60 tablet 10/21/16 [Rx] Carvedilol [Coreg] 6.25 mg PO BID #60 tablet 10/21/16 [Rx] Isosorbide Mononitrate [Imdur] 60 mg PO ACBREAKFAST #30 tab.er 10/21/16 [Rx] Morphine [MS Contin] 15 mg PO BID #60 tab.er 10/21/16 [Rx] Potassium Chloride [Klor-Con M20] 20 meq PO BID #60 tab.er 10/21/16 [Rx] Tamsulosin [Flomax] 0.4 mg PO DAILY #30 cap.er 10/21/16 [Rx] Terazosin [Hytrin] 1 mg PO BEDTIME #30 cap 10/21/16 [Rx] fentaNYL [Duragesic] 12 mcg TRDERM Q72H #1 box 10/21/16 [Rx] Past Medical History HEENT History: Reports: Hard of Hearing, Impaired Vision Other HEENT History: Wears glasses Cardiovascular History: Reports: Afib, CAD, Heart Failure, High Cholesterol, Hypertension, [place] Gastrointestinal History: Reports: GI Bleed Genitourinary History: Reports: BPH Musculoskeletal History: Reports: Back Pain, Chronic Neurological History: Reports: Headaches, Chronic Hematologic History: Reports: Anemia, Blood Transfusion(s) - Infectious Disease History Infectious Disease History: Reports: Chicken Pox, Measles, Mumps, Shingles - Past Surgical History HEENT Surgical History: Reports: Cataract Surgery Cardiovascular Surgical History: Reports: Pacer Neurological Surgical History: Reports: Lumbar Spine (L4/L5 fusion) Social & Family History - Family History Family Medical History: Noncontributory - Tobacco Use Smoking Status *Q: Former Smoker Years of Tobacco use: 30 Packs/Tins Daily: 1 Month Tobacco Last Used: 45 yrs Second Hand Smoke Exposure: No - Caffeine Use Caffeine Use: Reports: Coffee - Alcohol Use Alcohol Use History: Yes Days Per Week of Alcohol Use: 0 Number of Drinks Per Day: 1 Total Drinks Per Week: 0 - Recreational Drug Use Recreational Drug Use: No - Living Situation & Occupation Living situation: Reports: , with Spouse Occupation: Retired ED ROS GENERAL - Review of Systems Review Of Systems: ROS reveals no pertinent complaints other than HPI. ED EXAM, GI/ABD - Physical Exam Exam: See Below Exam Limited By: No Limitations General Appearance: Alert, No Apparent Distress, Thin Eyes: Bilateral: Normal Appearance, EOMI Ears: Normal External Exam, Hearing Grossly Normal Nose: Normal Inspection, No Blood Throat/Mouth: Normal Inspection, Normal Lips, Normal Voice, No Airway Compromise Head: Atraumatic, Normocephalic Neck: Normal Inspection, Full Range of Motion Respiratory/Chest: No Respiratory Distress, Lungs Clear, Normal Breath Sounds, No Accessory Muscle Use Cardiovascular: Normal Peripheral Pulses, Regular Rate, Rhythm, No Gallop, No JVD, No Murmur, No Rub GI/Abdominal Exam: Normal Bowel Sounds, Soft, No Organomegaly, No Distention, No Abnormal Bruit, No Mass, Pelvis Stable, Tender (About an apparent ventral hernia, easily reduced. Firm mobile masses palpable on the left abdomen.) (Male) Exam: Deferred Rectal (Males) Exam: Deferred Back Exam: Normal Inspection, Full Range of Motion. No: CVA Tenderness (L), CVA Tenderness (R) Extremities: Normal Inspection, Normal Range of Motion, No Pedal Edema, Normal Capillary Refill Neurological: Alert, Oriented, Normal Cognition, No Motor/Sensory Deficits Psychiatric: Normal Affect Skin Exam: Warm, Dry, Intact, Normal Color, No Rash Course - Vital Signs Last Recorded V/S: Last Vital Signs Temp 36.4 C 09/13/17 00:02 Pulse 120 H 09/13/17 00:02 Resp 18 09/13/17 00:02 BP 124/83 09/13/17 00:02 Pulse Ox 93 L 09/13/17 00:02 - Orders/Labs/Meds Orders: Active Orders 24 hr Category Date Time Status Abdomen 1V Upright [CR] Stat Exams 09/13/17 00:12 Taken Abdomen Pelvis w Cont [CT] Stat Exams 09/13/17 00:56 Ordered CBC WITH MANUAL DIFF [HEME] Stat Lab 09/13/17 00:56 Ordered COMPREHENSIVE METABOLIC PN,CMP [CHEM] Stat Lab 09/13/17 00:56 Ordered LIPASE [CHEM] Stat Lab 09/13/17 00:56 Ordered UA W/MICROSCOPIC [URIN] Stat Lab 09/13/17 00:55 Results Sodium Chloride 0.9% [Normal Saline] 1,000 ml Med 09/13/17 01:00 Active IV ASDIRECTED Medication Orders Sodium Chloride (Normal Saline) 1,000 mls @ 100 mls/hr IV ASDIRECTED JAIRO Labs: Laboratory Tests 09/13/17 Range/Units 00:55 Urine Color Dark yellow (Yellow) Urine Appearance Clear (Clear) Urine pH 5.0 (5.0-8.0) Ur Specific [place] 1.015 (1.005-1.030) Urine Protein Negative (Negative) Urine Glucose (UA) Negative (Negative) Urine Ketones Negative (Negative) Urine Occult Blood Trace-intact H (Negative) Urine Nitrite Negative (Negative) Urine Bilirubin Negative (Negative) Urine Urobilinogen 1.0 (0.2-1.0) Ur Leukocyte Esterase Negative (Negative) Meds: Medications Generic Name Dose Route Start Last Admin Trade Name Roni PRN Reason Stop Dose Admin Sodium Chloride 1,000 mls @ 100 mls/hr 09/13/17 01:00 Normal Saline IV ASDIRECTED JAIRO - Re-Assessments/Exams Free Text/Narrative Re-Assessment/Exam: 09/13/17 00:30 Upright abdominal radiograph appears to demonstrate a modest amount of stool in the cecum, but no stool seen elsewhere through the colon. No air-fluid levels to suggest a small bowel obstruction. A single lead pacemaker to the right ventricle is noted. Sternotomy wires are noted. There is significant scoliosis, and L4/L5 fusion hardware is noted. There is calcification of the costal cartilage. Formal read per the Radiologist pending. 09/13/17 00:34 Per the abdominal radiograph, the patient does not have significant constipation. He has a known history of BPH. I am concerned that his rectal urgency could be due to urinary retention or a UTI. I have asked the nurse to perform a post-void quick catheter to check the residual volume as well as check a urinalysis. 09/13/17 00:57 The quick catheter reveals a postvoid residual of only 50 mL. I have ordered blood work and a CT scan of the abdomen and pelvis to evaluate the patient's lower abdominal pressure. 09/13/17 01:18 Notified by Yina BELTRAN that the patient and his were made aware of the tests that I ordered, but decided to leave AMA. They stated that they will follow-up with Dr. Oscar tomorrow. They left without waiting for discharge instructions. Departure - Departure Time of Disposition: 01:19 Disposition: Against Medical Advice 07 Condition: Fair Clinical Impression: Bilateral lower abdominal discomfort - Discharge Information Referrals: Glenn Oscar MD [Primary Care Provider] - Forms: ED Department Discharge - My Orders Last 24 Hours: My Active Orders 09/13/17 00:12 Abdomen 1V Upright [CR] Stat 09/13/17 00:55 UA W/MICROSCOPIC [URIN] Stat 09/13/17 00:56 Abdomen Pelvis w Cont [CT] Stat CBC WITH MANUAL DIFF [HEME] Stat COMPREHENSIVE METABOLIC PN,CMP [CHEM] Stat LIPASE [CHEM] Stat 09/13/17 01:00 Sodium Chloride 0.9% [Normal Saline] 1,000 ml IV ASDIRECTED - Assessment/Plan Last 24 Hours: My Active Orders 09/13/17 00:12 Abdomen 1V Upright [CR] Stat 09/13/17 00:55 UA W/MICROSCOPIC [URIN] Stat 09/13/17 00:56 Abdomen Pelvis w Cont [CT] Stat CBC WITH MANUAL DIFF [HEME] Stat COMPREHENSIVE METABOLIC PN,CMP [CHEM] Stat LIPASE [CHEM] Stat 09/13/17 01:00 Sodium Chloride 0.9% [Normal Saline] 1,000 ml IV ASDIRECTED
[2017-09-13] MEDS ORDERED: Sodium Chloride 0.9% 1,000 ML IV SCH (01:00)
--- NOTE | 2017-09-13 08:25 | CR ---
Abdomen: Upright view of the abdomen was obtained. Comparison: Prior abdominal x-ray of 04/16/16. Degenerative change and scoliosis is noted within the spine. Previous lower lumbar spine surgery is seen. Bony structures are osteopenic. Vascular calcification is noted. Minimal increased stool is noted within the colon. No bowel dilatation is seen. Impression: 1. Minimal increased stool within the colon. Other incidental findings. Diagnostic code #2
== END 2017-09-13 01:20 | disposition left against medical advice (07) ==
LOC: JD.ED 23:55
DX: R10.31 Right lower quadrant pain (principal); R10.32 Left lower quadrant pain; I11.0 Hypertensive heart disease with heart failure; I50.9 Heart failure, unspecified; I25.10 Atherosclerotic heart disease of native coronary artery without angina pectoris; I48.91 Unspecified atrial fibrillation; Z95.0 Presence of cardiac pacemaker; Z98.1 Arthrodesis status; Z87.891 Personal history of nicotine dependence; Z79.899 Other long term (current) drug therapy; Z88.1 Allergy status to other antibiotic agents
CPT/HCPCS: 74018; 81001; 99284; P9612

== ENCOUNTER 2017-09-13 21:09 | Emergency (ER) | payer OTHER, MEDICARE, BC ==
[2017-09-13 21:31] VITALS: BP 108/77
--- NOTE | 2017-09-13 22:41 | EDM.PDOC ---
ED HPI GENERAL MEDICAL PROBLEM - General Chief Complaint: Gastrointestinal Problem Stated Complaint: CONSTIPATION Time Seen by Provider: 09/13/17 21:33 Source of Information: Reports: Patient History Limitations: Reports: No Limitations - History of Present Illness INITIAL COMMENTS - FREE TEXT/NARRATIVE: The patient presents with constipation. He has not had a good bowel movement for 3 days. He feels bloated. He has no nausea or vomiting. He has no real change in his diet. He has no fever, chills, cough, chest pain or shortness of breath. He has no nausea or vomiting. Onset: Gradual Duration: Day(s): (3) Location: Reports: Abdomen Quality: Reports: Ache Severity: Mild Improves with: Reports: None Worsens with: Reports: None Associated Symptoms: Reports: No Other Symptoms Abdominal Pain Score (Numeric/FACES): 5 - Related Data Allergies Allergy/AdvReac Type Severity Reaction Status Date / Time cephalexin [Cephalexin] Allergy Unknown Unknown Verified 09/13/17 21:21 Home Meds: Home Meds Polyethylene Glycol 3350 [MiraLAX] 17 gm PO ASDIRECTED PRN 07/06/15 [History] Nitroglycerin [Nitrostat] 0.4 mg SL Q5M PRN #25 tab.sl 07/09/16 [Rx] Rosuvastatin [Crestor] 5 mg PO ACBREAKFAST 10/17/16 [History] Bumetanide 1 mg PO BID #60 10/21/16 [Rx] Isosorbide Mononitrate [Imdur] 60 mg PO ACBREAKFAST #30 tab.er 10/21/16 [Rx] Potassium Chloride [Klor-Con M20] 20 meq PO BID #60 tab.er 10/21/16 [Rx] Tamsulosin [Flomax] 0.4 mg PO DAILY #30 cap.er 10/21/16 [Rx] Terazosin [Hytrin] 1 mg PO BEDTIME #30 cap 10/21/16 [Rx] fentaNYL [Duragesic] 12 mcg TRDERM Q72H #1 box 10/21/16 [Rx] Docusate Sodium [Colace] 100 mg PO DAILY #30 capsule 09/13/17 [Rx] Morphine [MS Contin] 15 mg PO BID PRN 09/13/17 [History] Past Medical History HEENT History: Reports: Hard of Hearing, Impaired Vision Other HEENT History: Wears glasses Cardiovascular History: Reports: Afib, CAD, Heart Failure, High Cholesterol, Hypertension, [place] Respiratory History: Reports: SOB Gastrointestinal History: Reports: GI Bleed Genitourinary History: Reports: BPH Musculoskeletal History: Reports: Back Pain, Chronic Neurological History: Reports: Headaches, Chronic Psychiatric History: Reports: None Endocrine/Metabolic History: Reports: None Hematologic History: Reports: Anemia, Blood Transfusion(s) Immunologic History: Reports: None Oncologic (Cancer) History: Reports: None Dermatologic History: Reports: None - Infectious Disease History Infectious Disease History: Reports: Chicken Pox, Measles, Mumps, Shingles - Past Surgical History HEENT Surgical History: Reports: Cataract Surgery Cardiovascular Surgical History: Reports: Pacer Neurological Surgical History: Reports: Lumbar Spine Social & Family History - Family History Family Medical History: Noncontributory - Tobacco Use Smoking Status *Q: Never Smoker Years of Tobacco use: 30 Packs/Tins Daily: 1 Used Tobacco, but Quit: Yes Month Tobacco Last Used: 45 yrs Second Hand Smoke Exposure: No - Caffeine Use Caffeine Use: Reports: Coffee, Soda, Tea - Alcohol Use Days Per Week of Alcohol Use: 0 Number of Drinks Per Day: 1 Total Drinks Per Week: 0 - Recreational Drug Use Recreational Drug Use: No - Living Situation & Occupation Living situation: Reports: , with Spouse Occupation: Retired ED ROS GENERAL - Review of Systems Review Of Systems: See Below Constitutional: Reports: No Symptoms HEENT: Reports: No Symptoms Respiratory: Reports: No Symptoms Cardiovascular: Reports: No Symptoms Endocrine: Reports: No Symptoms GI/Abdominal: Reports: Abdominal Pain, Constipation. Denies: Diarrhea, Nausea, Vomiting : Reports: No Symptoms Musculoskeletal: Reports: No Symptoms ED EXAM, GI/ABD - Physical Exam Exam: See Below Exam Limited By: No Limitations General Appearance: Alert, No Apparent Distress Ears: Normal External Exam Nose: Normal Inspection Head: Atraumatic, Normocephalic Neck: Normal Inspection Respiratory/Chest: No Respiratory Distress, Lungs Clear, Normal Breath Sounds Cardiovascular: Regular Rate, Rhythm, No Edema, No Murmur GI/Abdominal Exam: Soft, No Organomegaly, No Mass, Tender (Mild to the lower abdomen) Course - Vital Signs Last Recorded V/S: Last Vital Signs Temp 97.3 F 09/13/17 21:27 Pulse 71 09/13/17 21:27 Resp 18 09/13/17 21:27 BP 108/77 09/13/17 21:27 Pulse Ox 98 09/13/17 21:27 - Orders/Labs/Meds Orders: Active Orders 24 hr Category Date Time Status Enema [RC] ASDIRECTED Care 09/13/17 21:47 Active Magnesium Citrate [Citrate of Magnesia] Med 09/13/17 22:51 Once 100 ml PO ONETIME ONE - Re-Assessments/Exams Free Text/Narrative Re-Assessment/Exam: 09/13/17 22:41 I ordered a soap suds enema. 09/13/17 22:51 The patient did not have good results but he could not hold much of the fluid in. I will try some magnesium citrate. Departure - Departure Time of Disposition: 22:55 Disposition: Home, Self-Care 01 Condition: Good Clinical Impression: Constipation Qualifiers: Constipation type: other constipation type Qualified Code(s): K59.09 - Other constipation - Discharge Information Prescriptions: Docusate Sodium [Colace] 100 mg PO DAILY #30 capsule Referrals: Glenn Oscar MD [Primary Care Provider] - 2 Days Forms: ED Department Discharge Additional Instructions: We gave you some magnesium citrate here. That should help you have a bowel movement by morning. If you did not have a bowel movement by tomorrow morning take the rest of the bottle. Please return if you are worse or follow up with Dr Oscar. I sent a prescription for colace to [facility] pharmacy. That will help keep your bowels loose. - My Orders Last 24 Hours: My Active Orders 09/13/17 21:47 Enema [RC] ASDIRECTED 09/13/17 22:51 Magnesium Citrate [Citrate of Magnesia] 100 ml PO ONETIME ONE - Assessment/Plan Last 24 Hours: My Active Orders 09/13/17 21:47 Enema [RC] ASDIRECTED 09/13/17 22:51 Magnesium Citrate [Citrate of Magnesia] 100 ml PO ONETIME ONE
[2017-09-13] MEDS ORDERED: Magnesium Citrate Solution 296 ML Bottle PO ONE (22:51)
== END 2017-09-13 23:05 | disposition home or self-care (01) ==
LOC: JD.ED 21:09
DX: K59.09 Other constipation (principal); I11.0 Hypertensive heart disease with heart failure; I50.9 Heart failure, unspecified; I25.10 Atherosclerotic heart disease of native coronary artery without angina pectoris; I48.91 Unspecified atrial fibrillation; E78.00 Pure hypercholesterolemia, unspecified; Z95.2 Presence of prosthetic heart valve; Z87.891 Personal history of nicotine dependence; Z79.899 Other long term (current) drug therapy; Z88.1 Allergy status to other antibiotic agents
CPT/HCPCS: 99283; A9270; 99284

== ENCOUNTER 2018-01-28 14:34 | Observation (INO) | payer BC, MEDICARE, OTHER ==
--- NOTE | 2018-01-28 14:57 | CT ---
Head CT Technique: Multiple axial sections through the brain were obtained. Intravenous contrast was not utilized. Comparison: Previous head CT exam of 02/12/09. Findings: Ventricles along the basal cisterns and sulci over convexities are moderately to markedly prominent. Minimal diminished density is noted within the periventricular white matter compatible with small vessel ischemic demyelination change. Old lacunar infarcts are noted within the basal ganglia. Slight basal ganglia calcification is seen. No other abnormal parenchymal densities are seen. Atherosclerotic calcification is seen within the vertebral vessels and within the basilar artery and within the carotid siphon. No intracranial hemorrhage is seen. No midline shift or mass effect is seen. Bone window settings were reviewed which shows no acute calvarial abnormality. Impression: 1. Generalized atrophy and other senescent change. 2. No acute intracranial abnormality is identified on noncontrast head CT exam. Diagnostic code #2
[2018-01-28] MEDS ORDERED: Sodium Chloride 0.9% 1,000 ML IV SCH (15:00)
--- NOTE | 2018-01-28 15:01 | EDM.PDOC ---
ED HPI GENERAL MEDICAL PROBLEM - General Chief Complaint: Abdominal Pain Stated Complaint: [facility] Time Seen by Provider: 01/28/18 14:40 Source of Information: Reports: Patient, EMS History Limitations: Reports: Physical Impairment (Generally weak, lethargic) - History of Present Illness INITIAL COMMENTS - FREE TEXT/NARRATIVE: The patient is lethargic and generally very weak, and is a poor historian. He is brought from home by EMS with a report that the patient was complaining of suprapubic abdominal pain since around noon. When asked if the patient has dysuria, the patient replies "I think so". EMS reports that about 5 minutes prior to arrival to the ED, the patient started leaning to the left, and they felt that he might have decreased left-sided strength. A stroke alert was therefore called upon arrival. The patient's PCP is Dr. Oscar. Lower Abdomen Pain Score (Numeric/FACES): 8 - Related Data Allergies Allergy/AdvReac Type Severity Reaction Status Date / Time cephalexin [Cephalexin] Allergy Unknown Unknown Verified 01/28/18 19:18 Home Meds: Home Meds Polyethylene Glycol 3350 [MiraLAX] 17 gm PO DAILY PRN 07/06/15 [History] Nitroglycerin [Nitrostat] 0.4 mg SL Q5M PRN #25 tab.sl 07/09/16 [Rx] Tamsulosin [Flomax] 0.4 mg PO DAILY #30 cap.er 10/21/16 [Rx] Docusate Sodium [Colace] 100 mg PO DAILY #30 capsule 09/13/17 [Rx] Morphine [MS Contin] 15 mg PO BID 09/13/17 [History] Haloperidol Lactate [Haldol 2 MG/ML Soln] 0.5 mg PO Q6H PRN 01/28/18 [History] Hyoscyamine Sulfate [Levsin-Sl] 0.125 mg SL Q4H PRN 01/28/18 [History] Morphine Sulfate 10 mg PO Q1H PRN 01/28/18 [History] Sennosides/Docusate Sodium [Sennosides-Docusate Sodium] 1 - 2 tab PO BID PRN 01/10 [History] fentaNYL [Duragesic] 75 mcg TOP Q3D 01/28/18 [History] Past Medical History HEENT History: Reports: Hard of Hearing, Impaired Vision Other HEENT History: Wears glasses Cardiovascular History: Reports: Afib, CAD, Heart Failure, High Cholesterol, Hypertension, [place] Respiratory History: Reports: SOB Gastrointestinal History: Reports: GI Bleed Genitourinary History: Reports: BPH Musculoskeletal History: Reports: Back Pain, Chronic Neurological History: Reports: Headaches, Chronic Psychiatric History: Reports: None Endocrine/Metabolic History: Reports: None Hematologic History: Reports: Anemia, Blood Transfusion(s) Immunologic History: Reports: None Oncologic (Cancer) History: Reports: None Dermatologic History: Reports: None - Infectious Disease History Infectious Disease History: Reports: Chicken Pox, Measles, Mumps, Shingles - Past Surgical History HEENT Surgical History: Reports: Cataract Surgery Cardiovascular Surgical History: Reports: Pacer Neurological Surgical History: Reports: Lumbar Spine Social & Family History - Family History Family Medical History: Noncontributory - Caffeine Use Caffeine Use: Reports: Coffee, Soda, Tea - Living Situation & Occupation Living situation: Reports: , with Spouse Occupation: Retired ED ROS GENERAL - Review of Systems Review Of Systems: ROS reveals no pertinent complaints other than HPI. ED EXAM, GENERAL - Physical Exam Exam: See Below Exam Limited By: Physical Impairment (The patient is generally very weak and unable to follow commands) General Appearance: No Apparent Distress, Lethargic, Thin Eye Exam: Bilateral Eye: EOMI, Normal Inspection Ears: Normal External Exam, Hearing Grossly Normal Nose: Normal Inspection, No Blood Throat/Mouth: Normal Inspection, Normal Lips, No Airway Compromise, Other (Weak voice) Head: Atraumatic, Normocephalic Neck: Normal Inspection Respiratory/Chest: No Respiratory Distress, Lungs Clear, Normal Breath Sounds, No Accessory Muscle Use, Other (Well-healed midline chest scar, consistent with a prior sternotomy) Cardiovascular: Normal Peripheral Pulses, Regular Rate, Rhythm, No Gallop, No JVD, No Murmur, No Rub, Other (Trace edema to the left lower extremity. Well- healed medial left leg scar, consistent with vein graft. Well-healed scar over the anterior left knee, consistent with a TKA. No edema to the right lower extremity.) Peripheral Pulses: 3+: Radial (L), Radial (R) GI/Abdominal: Normal Bowel Sounds, Soft, No Organomegaly, No Distention, No Abnormal Bruit, Other (Multiple mobile masses in the abdomen, consistent with stool. The patient complains of significant suprapubic tenderness.) (Male) Exam: No Hernia, Normal Inspection, Normal Prostate, Circumcised Rectal (Males) Exam: Normal Exam, Normal Rectal Tone, Prostate Normal Back Exam: Normal Inspection, Full Range of Motion, NT Extremities: Normal Inspection, Normal Range of Motion, Non-Tender, Normal Capillary Refill, No Pedal Edema Neurological: Alert, Oriented, CN II-XII Intact, Normal Cognition, Normal Gait, Normal Reflexes, No Motor/Sensory Deficits Psychiatric: Normal Affect, Normal Mood Skin Exam: Warm, Dry, Intact, Normal Color, No Rash Lymphatic: No Adenopathy EKG INTERPRETATION EKG Date: 01/28/18 Time: 15:13 Rhythm: A-Fib (with ventricular pacing) Rate (Beats/Min): 64 Comparison: No Change (10/18/2017) Course - Vital Signs Last Recorded V/S: Last Vital Signs Temp 36.6 C 01/28/18 19:18 Pulse 80 01/28/18 19:18 Resp 18 01/28/18 19:18 BP 101/64 01/28/18 19:18 Pulse Ox 100 01/28/18 19:56 - Orders/Labs/Meds Orders: Active Orders 24 hr Category Date Time Status Coello Catheter Insertion [Insert Urinary Catheter] [OM. Care 01/28/18 15:15 Ordered PC] Q24H Urinary Catheter Assessment [RC] QSHIFT Care 01/28/18 15:08 Active Chest 1V Frontal [CR] Stat Exams 01/28/18 14:55 Taken CULTURE BLOOD [BC] Stat Lab 01/28/18 15:13 Received CULTURE BLOOD [BC] Stat Lab 01/28/18 15:22 Received UA W/MICROSCOPIC [URIN] Stat Lab 01/28/18 14:58 Ordered Sodium Chloride 0.9% [Normal Saline] 1,000 ml Med 01/28/18 15:00 Active IV ASDIRECTED Blood Culture x2 Reflex Set [OM.PC] Stat Oth 01/28/18 14:55 Ordered Medication Orders Docusate Sodium (Colace) 100 mg PO DAILY JAIRO Fentanyl (Duragesic) 75 mcg TOP Q3D JAIRO Hyoscyamine (Hyomax-Sl) 0.125 mg SL Q4H PRN PRN Reason: Excessive Secretions Sodium Chloride (Normal Saline) 1,000 mls @ 150 mls/hr IV ASDIRECTED [facility] Last Admin: 01/28/18 15:43 Dose: 150 mls/hr Morphine Sulfate (Ms Contin) 15 mg PO BID [facility] Nitroglycerin (Nitrostat) 0.4 mg SL Q5M PRN PRN Reason: Chest Pain Non-Formulary Medication (Haloperidol Lactate) 0.5 mg PO Q6H PRN PRN Reason: Restlessness Non-Formulary Medication (Morphine Sulfate [Morphine Sulfate]) 10 mg PO Q1H PRN PRN Reason: Pain Polyethylene Glycol (Miralax) 17 gm PO DAILY PRN PRN Reason: Constipation Senna/Docusate Sodium (Senna Plus) 1 - 2 tab PO BID PRN PRN Reason: Constipation Tamsulosin HCl (Flomax) 0.4 mg PO DAILY [facility] Labs: Laboratory Tests 01/28/18 01/28/18 01/28/18 Range/Units 14:50 14:54 14:54 WBC 5.36 (4.23-9.07) K/mm3 RBC 4.88 (4.63-6.08) M/mm3 Hgb 12.5 L (13.7-17.5) gm/L Hct 39.0 L (40.1-51.0) % MCV 79.9 (79.0-92.2) fl MCH 25.6 L (25.7-32.2) pg MCHC 32.1 L (32.2-35.5) g/dl RDW Std Deviation 49.3 H (35.1-43.9) fL Plt Count 235 (163-337) K/mm3 MPV 9.8 (9.4-12.3) fl Neutrophils % (Manual) 85 H (40-60) % Band Neutrophils % 0 (0-10) % Lymphocytes % (Manual) 7 L (20-40) % Atypical Lymphs % 0 % Monocytes % (Manual) 7 (2-10) % Eosinophils % (Manual) 1 (0.8-7.0) % Basophils % (Manual) 0 L (0.2-1.2) Platelet Estimate Adequate Plt Morphology Comment Normal RBC Morph Comment Normal PT 14.2 H (9.5-12.1) SECONDS INR 1.31 APTT 34 H (24-31) SECONDS D-Dimer, Quantitative 1.91 H (0.19-0.50) mg/L Puncture Site ABG pH (7.35-7.45) ABG pCO2 (35.0-45.0) mmHg ABG pO2 (80.0-100.0) mmHg ABG HCO3 (22.0-26.0) meq/L ABG O2 Saturation (96.0-97.0) % ABG Base Excess (-2-2.0) Kumar Test O2 Delivery Device FiO2 (21.00-100.00) % Sodium (136-145) mEq/L Potassium (3.5-5.1) mEq/L Chloride (98-107) mEq/L Carbon Dioxide (21-32) mEq/L Anion Gap (5-15) BUN (7-18) mg/dL Creatinine (0.7-1.3) mg/dL Est Cr Clr Drug Dosing Estimated GFR (MDRD) (>60) mL/min BUN/Creatinine Ratio (14-18) Glucose (83-115) mg/dL POC Glucose 76 L (83-110) mg/dL Lactic Acid (0.4-2.0) mmol/L Calcium (8.5-10.1) mg/dL Magnesium (1.8-2.4) mg/dl Total Bilirubin (0.2-1.0) mg/dL AST (15-37) U/L ALT (16-63) U/L Alkaline Phosphatase (46-116) U/L Troponin I (0.00-0.056) ng/mL NT-Pro-B Natriuret Pep (0-450) pg/mL Total Protein (6.4-8.2) g/dl Albumin (3.4-5.0) g/dl Globulin gm/dL Albumin/Globulin Ratio (1-2) Urine Color (Yellow) Urine Appearance (Clear) Urine pH (5.0-8.0) Ur Specific [place] (1.005-1.030) Urine Protein (Negative) Urine Glucose (UA) (Negative) Urine Ketones (Negative) Urine Occult Blood (Negative) Urine Nitrite (Negative) Urine Bilirubin (Negative) Urine Urobilinogen (0.2-1.0) Ur Leukocyte Esterase (Negative) Urine RBC (0-5) /hpf Urine WBC (0-5) /hpf Ur Epithelial Cells (0-5) /hpf Urine Bacteria (FEW) /hpf Urine Mucus (FEW) /hpf 07/06/18 07/06/18 07/06/18 Range/Units 14:54 14:54 14:55 WBC (4.23-9.07) K/mm3 RBC (4.63-6.08) M/mm3 Hgb (13.7-17.5) gm/L Hct (40.1-51.0) % MCV (79.0-92.2) fl MCH (25.7-32.2) pg MCHC (32.2-35.5) g/dl RDW Std Deviation (35.1-43.9) fL Plt Count (163-337) K/mm3 MPV (9.4-12.3) fl Neutrophils % (Manual) (40-60) % Band Neutrophils % (0-10) % Lymphocytes % (Manual) (20-40) % Atypical Lymphs % % Monocytes % (Manual) (2-10) % Eosinophils % (Manual) (0.8-7.0) % Basophils % (Manual) (0.2-1.2) Platelet Estimate Plt Morphology Comment RBC Morph Comment PT (9.5-12.1) SECONDS INR APTT (24-31) SECONDS D-Dimer, Quantitative (0.19-0.50) mg/L Puncture Site Rt radial ABG pH 7.37 (7.35-7.45) ABG pCO2 43.8 (35.0-45.0) mmHg ABG pO2 80.0 (80.0-100.0) mmHg ABG HCO3 24.8 (22.0-26.0) meq/L ABG O2 Saturation 94.6 L (96.0-97.0) % ABG Base Excess 0.0 (-2-2.0) Kumar Test Positive O2 Delivery Device Room air FiO2 0.00 L (21.00-100.00) % Sodium 142 (136-145) mEq/L Potassium 3.4 L (3.5-5.1) mEq/L Chloride 103 (98-107) mEq/L Carbon Dioxide 25 (21-32) mEq/L Anion Gap 17.4 H (5-15) BUN 59 H (7-18) mg/dL Creatinine 1.8 H (0.7-1.3) mg/dL Est Cr Clr Drug Dosing TNP Estimated GFR (MDRD) 36 (>60) mL/min BUN/Creatinine Ratio 32.8 H (14-18) Glucose 80 L (83-115) mg/dL POC Glucose (83-110) mg/dL Lactic Acid (0.4-2.0) mmol/L Calcium 9.4 (8.5-10.1) mg/dL Magnesium 2.6 H (1.8-2.4) mg/dl Total Bilirubin 1.4 H (0.2-1.0) mg/dL AST 141 H (15-37) U/L ALT 54 (16-63) U/L Alkaline Phosphatase 56 (46-116) U/L Troponin I 0.214 H* (0.00-0.056) ng/mL NT-Pro-B Natriuret Pep 99022 H (0-450) pg/mL Total Protein 7.7 (6.4-8.2) g/dl Albumin 3.5 (3.4-5.0) g/dl Globulin 4.2 gm/dL Albumin/Globulin Ratio 0.8 L (1-2) Urine Color (Yellow) Urine Appearance (Clear) Urine pH (5.0-8.0) Ur Specific [place] (1.005-1.030) Urine Protein (Negative) Urine Glucose (UA) (Negative) Urine Ketones (Negative) Urine Occult Blood (Negative) Urine Nitrite (Negative) Urine Bilirubin (Negative) Urine Urobilinogen (0.2-1.0) Ur Leukocyte Esterase (Negative) Urine RBC (0-5) /hpf Urine WBC (0-5) /hpf Ur Epithelial Cells (0-5) /hpf Urine Bacteria (FEW) /hpf Urine Mucus (FEW) /hpf 01/28/18/01/10 Range/Units 14:58 15:13 WBC (4.23-9.07) K/mm3 RBC (4.63-6.08) M/mm3 Hgb (13.7-17.5) gm/L Hct (40.1-51.0) % MCV (79.0-92.2) fl MCH (25.7-32.2) pg MCHC (32.2-35.5) g/dl RDW Std Deviation (35.1-43.9) fL Plt Count (163-337) K/mm3 MPV (9.4-12.3) fl Neutrophils % (Manual) (40-60) % Band Neutrophils % (0-10) % Lymphocytes % (Manual) (20-40) % Atypical Lymphs % % Monocytes % (Manual) (2-10) % Eosinophils % (Manual) (0.8-7.0) % Basophils % (Manual) (0.2-1.2) Platelet Estimate Plt Morphology Comment RBC Morph Comment PT (9.5-12.1) SECONDS INR APTT (24-31) SECONDS D-Dimer, Quantitative (0.19-0.50) mg/L Puncture Site ABG pH (7.35-7.45) ABG pCO2 (35.0-45.0) mmHg ABG pO2 (80.0-100.0) mmHg ABG HCO3 (22.0-26.0) meq/L ABG O2 Saturation (96.0-97.0) % ABG Base Excess (-2-2.0) Kumar Test O2 Delivery Device FiO2 (21.00-100.00) % Sodium (136-145) mEq/L Potassium (3.5-5.1) mEq/L Chloride (98-107) mEq/L Carbon Dioxide (21-32) mEq/L Anion Gap (5-15) BUN (7-18) mg/dL Creatinine (0.7-1.3) mg/dL Est Cr Clr Drug Dosing Estimated GFR (MDRD) (>60) mL/min BUN/Creatinine Ratio (14-18) Glucose (83-115) mg/dL POC Glucose (83-110) mg/dL Lactic Acid 1.2 (0.4-2.0) mmol/L Calcium (8.5-10.1) mg/dL Magnesium (1.8-2.4) mg/dl Total Bilirubin (0.2-1.0) mg/dL AST (15-37) U/L ALT (16-63) U/L Alkaline Phosphatase (46-116) U/L Troponin I (0.00-0.056) ng/mL NT-Pro-B Natriuret Pep (0-450) pg/mL Total Protein (6.4-8.2) g/dl Albumin (3.4-5.0) g/dl Globulin gm/dL Albumin/Globulin Ratio (1-2) Urine Color Yellow (Yellow) Urine Appearance Clear (Clear) Urine pH 6.0 (5.0-8.0) Ur Specific [place] 1.020 (1.005-1.030) Urine Protein Negative (Negative) Urine Glucose (UA) Negative (Negative) Urine Ketones Negative (Negative) Urine Occult Blood Negative (Negative) Urine Nitrite Negative (Negative) Urine Bilirubin Negative (Negative) Urine Urobilinogen 0.2 (0.2-1.0) Ur Leukocyte Esterase Negative (Negative) Urine RBC Not seen (0-5) /hpf Urine WBC 0-5 (0-5) /hpf Ur Epithelial Cells Not seen (0-5) /hpf Urine Bacteria Not seen (FEW) /hpf Urine Mucus Not seen (FEW) /hpf Meds: Medications Generic Name Dose Route Start Last Admin Trade Name Freq PRN Reason Stop Dose Admin Docusate Sodium 100 mg 01/29/18 09:00 Colace PO DAILY [facility] Fentanyl 75 mcg 01/28/18 19:45 Duragesic TOP Q3D [facility] Hyoscyamine 0.125 mg 01/28/18 19:36 Hyomax-Sl SL Q4H PRN Excessive Secretions Sodium Chloride 1,000 mls @ 150 mls/hr 01/28/18 15:00 01/28/18 15:43 Normal Saline IV 150 mls/hr ASDIRECTED [facility] Administration Morphine Sulfate 15 mg 01/28/18 21:00 Ms Contin PO BID JAIRO Nitroglycerin 0.4 mg 01/28/18 19:36 Nitrostat SL Q5M PRN Chest Pain Non-Formulary Medication 0.5 mg 01/28/18 19:36 Haloperidol Lactate PO Q6H PRN Restlessness Non-Formulary Medication 10 mg 01/28/18 19:36 Morphine Sulfate [Morphine Sulfate] PO Q1H PRN Pain Polyethylene Glycol 17 gm 01/28/18 19:36 Miralax PO DAILY PRN Constipation Senna/Docusate Sodium 1 - 2 tab 01/28/18 19:36 Senna Plus PO BID PRN Constipation Tamsulosin HCl 0.4 mg 01/29/18 09:00 Flomax PO DAILY [facility] - Re-Assessments/Exams Free Text/Narrative Re-Assessment/Exam: 01/28/18 14:58 There was an initial concern by EMS that the patient might have been having a stroke, as he began leaning to his left side and they noticed left-sided weakness just a few minutes before arrival to the ED, however, on examination, he is generally weak all over, not just on the left side. His neurologic exam is not consistent with a stroke. He complains of suprapubic abdominal pain. I'm more concerned about a UTI and pyelonephritis. On my review of the CT scan of the patient's head, I find advanced senescent changes, but I find no acute intracranial hemorrhage. Formal read per the Radiologist pending. 01/28/18 15:02 CT of the head without contrast is read by Dr. Cardona as: 1. Generalized atrophy and other senescent change. 2. No acute intracranial abnormality is identified on noncontrast head CT exam. 01/28/18 15:08 Notified by Rowan BELTRAN that she recovered > 1000 mL of urine when she straight catheter him. I have ordered a Coello catheter. Notified by Omar BELTRAN that he was contacted by a hospice nurse. The patient is under hospice care. The patient's , who has dementia, apparently called EMS. Unless there are acute injuries found, the patient should not have come to the ED. We will leave the Coello catheter in, for comfort. 01/28/18 16:45 Portable chest radiograph reviewed. 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 Cardiac silhouette is at the upper limits of normal for technique. No pulmonary vascular congestion. No pleural effusions seen. No focal infiltrate. No pneumothorax. There is a left-sided single chamber pacer to the RV. Sternotomy wires incidentally noted. Scoliosis noted. Formal read per the Radiologist pending. 01/28/18 16:51 The patient's D-dimer is elevated at 1.91, his troponin is elevated at 0.214, and his BNP is substantially elevated at 11,612. His BUN/Cr are elevated at 59/ 1.8. The remainder of his workup is unremarkable. As the patient is a hospice patient, none of these findings represent an acute painful process it requires medical treatment, with the exception of the urinary retention. A Coello catheter was placed. We can return the patient home. 01/28/18 17:22 As I was preparing discharge orders, I was informed by Yina BELTRAN that the patient 's PCP, Dr. Oscar, wanted to give orders to place the patient into observation. Case discussed with Dr. Oscar at 17:15. Because the patient's has dementia, he does not feel that it is safe for the patient to return home. The patient will be going to a halfway this coming 01/31/2018, and he would like the patient placed into a respite bed until that time. Case then discussed with Dr. Veliz at 17:18. Neither she nor I are familiar with respite beds at this facility - she will look into it and get back to me. 01/28/18 18:[address] Veliz. She found that yes, indeed, there is a respite bed, however, patients admitted to the respite bed are not admitted to the Hospitalist, rather, to their hospice physician, in this case, Dr. Oscar. Case then discussed with Dr. Oscar at 18:09. He stated that he has not briefly on admission in this facility for about 6 years, and is not familiar with the dictation equipment. He indicated that he has admitted to hospice patients here previously, without having to be responsible for their admission. For tonight's purposes, he will admit the patient to the respite bed, then figure out at a later time what needs to be done. Departure - Departure Time of Disposition: 16:52 Disposition: Refer to Observation Condition: Fair Clinical Impression: Urinary retention, Hospice care - Discharge Information - My Orders Last 24 Hours: My Active Orders 01/28/18 14:55 Chest 1V Frontal [CR] Stat Blood Culture x2 Reflex Set [OM.PC] Stat 01/28/18 14:58 UA W/MICROSCOPIC [URIN] Stat 01/28/18 15:00 Sodium Chloride 0.9% [Normal Saline] 1,000 ml IV ASDIRECTED 01/28/18 15:08 Urinary Catheter Assessment [RC] QSHIFT 01/28/18 15:13 CULTURE BLOOD [BC] Stat 01/28/18 15:15 Coello Catheter Insertion [Insert Urinary Catheter] [OM.PC] Q24H 01/28/18 15:22 CULTURE BLOOD [BC] Stat - Assessment/Plan Last 24 Hours: My Active Orders 01/28/18 14:55 Chest 1V Frontal [CR] Stat Blood Culture x2 Reflex Set [OM.PC] Stat 01/28/18 14:58 UA W/MICROSCOPIC [URIN] Stat 01/28/18 15:00 Sodium Chloride 0.9% [Normal Saline] 1,000 ml IV ASDIRECTED 01/28/18 15:08 Urinary Catheter Assessment [RC] QSHIFT 01/28/18 15:13 CULTURE BLOOD [BC] Stat 01/28/18 15:15 Coello Catheter Insertion [Insert Urinary Catheter] [OM.PC] Q24H 01/28/18 15:22 CULTURE BLOOD [BC] Stat
[2018-01-28] MEDS ORDERED: Haloperidol 0.5 MG Tab PO PRN (19:36)
[2018-01-28] MEDS ORDERED: Nitroglycerin 0.4 MG Tab.SL SL PRN (19:36)
[2018-01-28] MEDS ORDERED: Polyethylene Glycol 3350 Powder 17 GM Packet PO PRN (19:36)
[2018-01-28] MEDS ORDERED: Hyoscyamine 0.125 MG Tab.SL SL PRN (19:36)
[2018-01-28] MEDS: MORPHINE 15 MG PO SCH (22:39)
[2018-01-29] MEDS: DOCUSATE SODIUM 100 MG PO SCH (10:35)
[2018-01-29] MEDS: Tamsulosin 0.4 MG Cap.ER ** OWN MED PO SCH (10:35)
[2018-01-29] MEDS: MORPHINE 15 MG PO SCH ×2 (10:37→22:16)
[2018-01-29] MEDS: MORPHINE 20 MG/ML PO PRN (13:27)
[2018-01-30] MEDS ORDERED: FENTANYL 75 MCG/HR TOP SCH (09:00)
[2018-01-30] MEDS: DOCUSATE SODIUM 100 MG PO SCH (09:28)
[2018-01-30] MEDS: Tamsulosin 0.4 MG Cap.ER ** OWN MED PO SCH (09:29)
[2018-01-30] MEDS: MORPHINE 15 MG PO SCH ×2 (09:31→21:13)
[2018-01-30] MEDS: MORPHINE 20 MG/ML PO PRN (09:49)
[2018-01-31] MEDS: DOCUSATE SODIUM 100 MG PO SCH (08:17)
[2018-01-31] MEDS: MORPHINE 15 MG PO SCH (08:17)
[2018-01-31] MEDS: Tamsulosin 0.4 MG Cap.ER ** OWN MED PO SCH (08:17)
[2018-01-31 09:13] VITALS: BP 99/63
[2018-01-31] MEDS: MORPHINE 20 MG/ML PO PRN (09:29)
--- NOTE | 2018-01-31 11:15 | CR ---
Chest: Portable view of the chest was obtained. Comparison: Prior chest x-ray of 05/23/17. Heart is enlarged. Tortuous thoracic aorta is seen. Sternotomy and pacemaker are noted. Scoliosis is noted within the spine. Lungs are clear without acute parenchymal densities. Impression: 1. Stable findings as noted above. Nothing acute is appreciated on portable chest x-ray. Diagnostic code #2
--- NOTE | 2018-02-10 16:26 | PCM.DCSUM1 ---
Discharge Summary - Hospital Course Brief History: This is an 87 year old white male who came in for respite care. Diagnosis: Stroke: No - Discharge Data Discharge Date: 01/31/18 Discharge Disposition: DC/Tfer to Hospice - Home 52 Condition: Undetermined - Discharge Diagnosis/Problem(s) (1) End of life care SNOMED Code(s): 764278067, [id number] ICD Code: Z51.5 - ENCOUNTER FOR PALLIATIVE CARE Status: Acute - Patient Summary/Data Hospital Course: Patient was here for respite care. - Patient Instructions Diet: Usual Diet as Tolerated Activity: As Tolerated Driving: Do Not Drive Showering/Bathing: May Shower, No Tub Bathing/Swimming Other/Special Instructions: - Discharge to NH under Hospice/Palliative Care - Discharge Plan Home Medications: Home Meds Polyethylene Glycol 3350 [MiraLAX] 17 gm PO DAILY PRN 07/06/15 [History] Nitroglycerin [Nitrostat] 0.4 mg SL Q5M PRN #25 tab.sl 07/09/16 [Rx] Tamsulosin [Flomax] 0.4 mg PO DAILY #30 cap.er 10/21/16 [Rx] Docusate Sodium [Colace] 100 mg PO DAILY #30 capsule 09/13/17 [Rx] Morphine [MS Contin] 15 mg PO BID 09/13/17 [History] Haloperidol Lactate [Haldol 2 MG/ML Soln] 0.5 mg PO Q6H PRN 01/28/18 [History] Hyoscyamine Sulfate [Levsin-Sl] 0.125 mg SL Q4H PRN 01/28/18 [History] Morphine Sulfate 10 mg PO Q1H PRN 01/28/18 [History] Sennosides/Docusate Sodium [Sennosides-Docusate Sodium] 1 - 2 tab PO BID PRN 01/10 [History] fentaNYL [Duragesic] 75 mcg TOP Q3D 01/28/18 [History] Patient Handouts: Hospice Referrals: Glenn Oscar MD [Primary Care Provider] - - General Info Date of Service: 01/31/18 Admission Dx/Problem (Free Text: Respite Care - Review of Systems Systems Review Comment: ROS unable to obtain. I was told to just put in discharge orders for him. - Patient Data Vitals - Most Recent: Last Vital Signs Temp 36.4 C 01/31/18 08:13 Pulse 75 01/31/18 08:16 Resp 14 01/31/18 08:13 BP 99/63 01/31/18 08:13 Pulse Ox 91 L 01/31/18 08:16 Weight - Most Recent: 69.49 kg Med Orders - Current: Current Medications Discontinued Medications Docusate Sodium (Colace) 100 mg PO DAILY [facility] Last Admin: 01/31/18 08:17 Dose: 100 mg Fentanyl (Duragesic) 75 mcg TOP Q3D [facility] Last Admin: 01/30/18 09:40 Dose: 75 mcg Haloperidol (Haldol) 0.5 mg PO Q6H PRN PRN Reason: Restlessness Hyoscyamine (Hyomax-Sl) 0.125 mg SL Q4H PRN PRN Reason: Excessive Secretions Sodium Chloride (Normal Saline) 1,000 mls @ 150 mls/hr IV ASDIRECTED [facility] Last Admin: 01/28/18 15:43 Dose: 150 mls/hr Miscellaneous Information (Remove Patch) 1 ea TRDERM Q72H [facility] Last Admin: 01/30/18 09:57 Dose: 1 ea Morphine Sulfate (Ms Contin) 15 mg PO BID [facility] Last Admin: 01/31/18 08:17 Dose: 15 mg Morphine Sulfate (Morphine 20 Mg/Ml Soln) 10 mg PO Q1H PRN PRN Reason: Pain Last Admin: 01/31/18 09:29 Dose: 10 mg Nitroglycerin (Nitrostat) 0.4 mg SL Q5M PRN PRN Reason: Chest Pain Polyethylene Glycol (Miralax) 17 gm PO DAILY PRN PRN Reason: Constipation Last Admin: 01/31/18 08:17 Dose: 17 gm Senna/Docusate Sodium (Senna Plus) 1 - 2 tab PO BID PRN PRN Reason: Constipation Last Admin: 01/30/18 09:31 Dose: 2 tab Tamsulosin HCl (Flomax) 0.4 mg PO DAILY [facility] Last Admin: 01/31/18 08:17 Dose: 0.4 mg - Exam Physical Findings Comments:: Physical exam did not perform.I was told to just put in discharge orders for him.
== END 2018-01-31 11:10 | disposition hospice, home (50) ==
LOC: JD.ED 14:34 → JD.MS 19:00
PROVIDERS: ADMIT Internal Medicine Cardiovascular Disease; ATTEND Internal Medicine Cardiovascular Disease
DX: Z51.5 Encounter for palliative care (principal); I11.0 Hypertensive heart disease with heart failure; I50.9 Heart failure, unspecified
CPT/HCPCS: 36415; 36600; 51702; 70450; 71045; 80053; 81001; 82803; 82962; 83605; 83735; 83880; 84484; 85007; 85027; 85379; 85610; 85730; 87040; 93005; 96360; 96361; 99285; A9270; G0378; J7040; 93010